=== PATIENT | female | born 1935 | race African-American/Black ===

== ENCOUNTER 2016-12-30 05:34 | Emergency (ER) | payer MEDICARE, OTHER ==
[~2016-12-30] VITALS: Ht 167.6 cm; Wt 59.0 kg
[2016-12-30] MEDS ORDERED: DIPHTH,PERTUSS(ACELL),TET TOX 0.5 ML DISP.SYRIN. VAX IM ONE (06:00)
--- NOTE | 2016-12-30 06:06 | PHYS DOC ---
Adult General Chief Complaint Chief Complaint: HEAD INJURY/TRAUMA HPI HPI Patient is a 81 year old female who presents with scalp laceration and a fall. She has a history dementia, coronary disease who according to family got up around 5 AM and was in the living room after she fell. This was an unwitnessed fall and the patient states she got up to use the bathroom but family is telling me that the bathrooms in the opposite direction. She lives with her daughter, who states last night she was talking to people her bedroom and was more hyper than normal. Present during the exam is certain daughter and son. The daughter states that she found her laying under a glass coffee table and with a laceration the back of her head. She is on a blood thinner. Patient currently states she has a headache but denies any neck pain chest pain abdominal pain. Family is unsure when her last tetanus shot was. Review of Systems Review of Systems Constitutional: Denies fever or chills [] Eyes: Denies change in visual acuity, redness, or eye pain [] HENT: Denies nasal congestion or sore throat [] Respiratory: Denies cough or shortness of breath [] Cardiovascular: No additional information not addressed in HPI [] GI: Denies abdominal pain, nausea, vomiting, bloody stools or diarrhea [] : Denies dysuria or hematuria [] Musculoskeletal: Denies back pain or joint pain [] Integument: Denies rash or skin lesions [] Neurologic: Denies focal weakness or sensory changes, positive for headache Endocrine: Denies polyuria or polydipsia [] Current Medications Current Medications Current Medications Medications (Trade) Dose Ordered Sig/Arnoldo Start Time Stop Time Status Last Admin Dose Admin Acetaminophen (Tylenol) 1,000 mg 1X ONCE 12/30/16 07:30 12/30/16 07:31 DC 12/30/16 07:46 1,000 MG Diphtheria/ Tetanus/Acell Pertussis (Boostrix) 0.5 ml ONCE ONCE 12/30/16 06:00 12/30/16 06:01 DC 12/30/16 06:10 0.5 ML Lidocaine HCl (Xylocaine-Mpf 1% Vial) 2 ml 1X ONCE 12/30/16 06:30 12/30/16 06:31 DC 12/30/16 06:33 2 ML Allergies Allergies Allergies Coded Allergies Type Severity Reaction Last Updated Verified No Known Drug Allergies 12/30/16 No Physical Exam Physical Exam Constitutional: Well developed, well nourished, no acute distress, non-toxic appearance. [] HENT: Normocephalic, atraumatic, bilateral external ears normal, oropharynx moist, no oral exudates, nose normal. [] Eyes: PERRLA, EOMI, conjunctiva normal, no discharge. [] Neck: Normal range of motion, no tenderness, supple, no stridor. [] Cardiovascular:Heart rate regular rhythm, no murmur [] Lungs & Thorax: Bilateral breath sounds clear to auscultation [] Abdomen: Bowel sounds normal, soft, no tenderness, no masses, no pulsatile masses. [] Skin: Warm, dry, no erythema, no rash. 3 cm laceration to posterior scalp Back: No tenderness, no CVA tenderness. [] Extremities: No tenderness, no cyanosis, no clubbing, ROM intact, no edema. [] Neurologic: Alert and interactive, normal motor function, normal sensory function, no focal deficits noted. [] Psychologic: Affect normal, judgement normal, mood normal. [] Current Patient Data Vital Signs Vital Signs Date Time Temp Pulse Resp B/P (MAP) Pulse Ox O2 Delivery O2 Flow Rate FiO2 12/30/16 06:36 73 197/91 (126) Room Air 12/30/16 06:16 96 12/30/16 05:40 98.2 18 98.2 Lab Values Laboratory Tests Test 12/30/16 04:40 12/30/16 06:26 White Blood Count 8.1 x10^3/uL (4.0-11.0) Red Blood Count 4.56 x10^6/uL (3.50-5.40) Hemoglobin 13.1 g/dL (12.0-15.5) Hematocrit 40.1 % (36.0-47.0) Mean Corpuscular Volume 88 fL (79-100) Mean Corpuscular Hemoglobin 29 pg (25-35) Mean Corpuscular Hemoglobin Concent 33 g/dL (31-37) Red Cell Distribution Width 14.1 % (11.5-14.5) Platelet Count 135 x10^3/uL (140-400) L Neutrophils (%) (Auto) 69 % (31-73) Lymphocytes (%) (Auto) 24 % (24-48) Monocytes (%) (Auto) 5 % (0-9) Eosinophils (%) (Auto) 1 % (0-3) Basophils (%) (Auto) 1 % (0-3) Neutrophils # (Auto) 5.6 x10^3uL (1.8-7.7) Lymphocytes # (Auto) 2.0 x10^3/uL (1.0-4.8) Monocytes # (Auto) 0.4 x10^3/uL (0.0-1.1) Eosinophils # (Auto) 0.1 x10^3/uL (0.0-0.7) Basophils # (Auto) 0.0 x10^3/uL (0.0-0.2) Prothrombin Time 17.0 SEC (11.7-14.0) H Prothrombin Time INR 1.5 (0.8-1.1) H PTT 35 SEC (24-38) Sodium Level 139 mmol/L (136-145) Potassium Level 3.7 mmol/L (3.5-5.1) Chloride Level 99 mmol/L (98-107) Carbon Dioxide Level 33 mmol/L (21-32) H Anion Gap 7 (6-14) Blood Urea Nitrogen 11 mg/dL (7-20) Creatinine 0.9 mg/dL (0.6-1.0) Estimated GFR (Cockcroft-Gault) 72.9 Glucose Level 126 mg/dL (70-99) H Calcium Level 10.1 mg/dL (8.5-10.1) Creatine Kinase 175 U/L (26-192) Creatine Kinase MB (Mass) 3.0 ng/mL (0.0-3.6) Creatine Kinase MB Relative Index 1.7 % (0-4) Troponin I Quantitative < 0.017 ng/mL (0.000-0.055) Urine Collection Type U cath Urine Color Yellow Urine Clarity Clear Urine pH 8.0 Urine Specific [place] 1.010 Urine Protein Negative mg/dL (NEG-TRACE) Urine Glucose (UA) Negative mg/dL (NEG) Urine Ketones (Stick) Negative mg/dL (NEG) Urine Blood Small (NEG) Urine Nitrite Negative (NEG) Urine Bilirubin Negative (NEG) Urine Urobilinogen Dipstick 0.2 mg/dL (0.2 mg/dL) Urine Leukocyte Esterase Small (NEG) Urine RBC 6-10 /HPF (0-2) Urine WBC Occ /HPF (0-4) Urine Squamous Epithelial Cells Few /LPF Urine Amorphous Sediment Present /HPF Urine Bacteria 0 /HPF (0-FEW) Urine Hyaline Casts Occasional /HPF Urine Mucus Slight /LPF Laboratory Tests 12/30/16 04:40 Laboratory Tests 12/30/16 04:40 EKG EKG EKG shows sinus rhythm [address] elevations or T-wave inversions, and left axis deviation noted, QTC 502 ms, as interpreted by me. Radiology/Procedures Radiology/Procedures [facility] [address] [place] [address] IMAGING REPORT Signed PATIENT: EFREN QUACH ACCOUNT: [id number] : 1935 LOCATION: ER AGE: 81 SEX: F EXAM STATUS: REG ER ORD. PHYSICIAN: RAAD COLEMAN MD REASON: fall, HEAD INJURY PROCEDURE: CT HEAD AND CERVICAL SPINE WO CT HEAD AND CERVICAL SPINE WITHOUT CONTRAST History: 81-year-old female status post fall with head injury. Comparison: None. Procedure: Axial images are obtained of the head from the skull base through the vertex without IV contrast. Noncontrast helical CT of the cervical spine was performed. Axial, sagittal, and coronal reconstructions were obtained. PQRS compliance statement: One or more of the following individualized dose reduction techniques were utilized for this examination: 1. Automated exposure control 2. Adjustment of the mA and/or kV according to patient size 3. Use of iterative reconstruction technique Head Findings: The ventricles and sulci are age-appropriate. No mass-effect, midline shift, hemorrhage or extra-axial fluid collection is identified. Bone windows demonstrate no significant calvarial abnormality. The visualized paranasal sinuses are clear. Mastoid air cells are well aerated. Cervical Spine Findings: There is no evidence of acute fracture or dislocation. Normal cervical lordosis and alignment is maintained. Vertebral body heights are maintained. Posterior elements are intact. Significant degenerative changes are present throughout. Visualized soft tissues of the neck demonstrate no acute finding, with arterial calcifications present bilaterally. The visualized lung apices are clear. IMPRESSION: 1. No acute intracranial abnormality. 2. No acute fracture of the cervical spine. Electronically signed by: Philipp Wilson MD (12/30/2016 6:11 AM) DICTATED and SIGNED BY: PHILIPP WILSON MD DATE: 12/30/16 0606 CC: FE GATES MD; LASHANDA PARKINSON MD; RAAD COLEMAN MD ~ Impressions: Closed head injury Scalp laceration Course & Med Decision Making Course & Med Decision Making Pertinent Labs and Imaging studies reviewed. (See chart for details) CT head and neck did not show any acute abnormality. Her labs EKG also nonacute. Scalp laceration closed with 6 bettye. Tetanus shot updated. She states her headache has just about resolved prior to Tylenol administration. She has a follow-up appointment today with her primary care physician. She's being discharged with her daughter, return precautions given for increasing confusion, fevers, signs of scalp wound infection, or other concerns. Dragon Disclaimer Dragon Disclaimer This electronic medical record was generated, in whole or in part, using a voice recognition dictation system. Laceration Repair Lac Repair Indication: 3 cm laceration posterior scalp Procedure: The patient was placed in the appropriate position and anesthesia with 1% lidocaine. The area was then cleaned with normal saline. The laceration was repaired with 6 bettye. Total repaired wound length: 3 cm. The patient tolerated the procedure well. Complications: No complications noted. Departure Departure Impression: Primary Impression: Closed head injury Additional Impression: Scalp laceration Disposition: 01 HOME, SELF-CARE Condition: STABLE Referrals: LASHANDA PARKINSON MD (PCP) Patient Instructions: Laceration Care, Adult Additional Instructions: The CAT scan of her head and neck did not show anything broken. Your laceration in her scalp was repaired with bettye and you'll need to have these removed in 7-9 days from now. Return to the ER if you have increasing pain, bleeding, confusion, signs of infection, or other concerns. Problem Qualifiers Primary Impression: Closed head injury Encounter type: initial encounter Qualified Codes: S09.90XA - Unspecified injury of head, initial encounter Additional Impression: Scalp laceration Encounter type: initial encounter Qualified Codes: S01.01XA - Laceration without foreign body of scalp, initial encounter FE GATES MD Dec 30, 2016 06:06
--- NOTE | 2016-12-30 06:15 | RAD ---
CT HEAD AND CERVICAL SPINE WITHOUT CONTRAST History: 81-year-old female status post fall with head injury. Comparison: None. Procedure: Axial images are obtained of the head from the skull base through the vertex without IV contrast. Noncontrast helical CT of the cervical spine was performed. Axial, sagittal, and coronal reconstructions were obtained. PQRS compliance statement: One or more of the following individualized dose reduction techniques were utilized for this examination: 1. Automated exposure control 2. Adjustment of the mA and/or kV according to patient size 3. Use of iterative reconstruction technique Head Findings: The ventricles and sulci are age-appropriate. No mass-effect, midline shift, hemorrhage or extra-axial fluid collection is identified. Bone windows demonstrate no significant calvarial abnormality. The visualized paranasal sinuses are clear. Mastoid air cells are well aerated. Cervical Spine Findings: There is no evidence of acute fracture or dislocation. Normal cervical lordosis and alignment is maintained. Vertebral body heights are maintained. Posterior elements are intact. Significant degenerative changes are present throughout. Visualized soft tissues of the neck demonstrate no acute finding, with arterial calcifications present bilaterally. The visualized lung apices are clear. IMPRESSION: 1. No acute intracranial abnormality. 2. No acute fracture of the cervical spine. Electronically signed by: Aure Wilson MD (12/30/2016 6:11 AM)
[2016-12-30 06:17] LABS: BASO % 1 % (0-3); EOS % 1 % (0-3); HEMATOCRIT 40.1 % (36.0-47.0); HEMOGLOBIN 13.1 g/dL (12.0-15.5); LYMPH % 24 % (24-48); MEAN CORPUSCULAR HEMOGLOBIN 29 pg (25-35); MEAN CORPUSCULAR HGB CONC 33 g/dL (31-37); MEAN CORPUSCULAR VOLUME 88 fL (79-100); MONO % 5 % (0-9); NEUT % 69 % (31-73); PLATELET COUNT 135 x10^3/uL (140-400); RED BLOOD COUNT 4.56 x10^6/uL (3.50-5.40); RED CELL DISTRIBUTION WIDTH 14.1 % (11.5-14.5); WHITE BLOOD COUNT 8.1 x10^3/uL (4.0-11.0)
[2016-12-30 06:27] LABS: POTASSIUM 3.7 mmol/L (3.5-5.1)
[2016-12-30] MEDS ORDERED: LIDOCAINE 1% PF 2 ML VIAL. ID ONE (06:30)
[2016-12-30 06:33] LABS: CALCIUM 10.1 mg/dL (8.5-10.1); CREATININE 0.9 mg/dL (0.6-1.0); GFR 72.9
[2016-12-30 06:47] LABS: BILIRUBIN,URINE NEGATIVE (NEG); GLUCOSE,URINE NEGATIVE (NEG); NITRITE,URINE NEGATIVE (NEG); PROTEIN,URINE NEGATIVE (NEG-TRACE); UROBILINOGEN,URINE 0.2 mg/dL (0.2 mg/dL)
--- NOTE | 2016-12-30 06:48 | EKG ---
[facility] [address] [place] [address] Test Date: 2016-12-30 Test Time: 06:23:21 Pat Name: EFREN QUACH Department: Room: Gender: F [employer]ity Assessor: : 1935 Requested By: FE GATES Order Number: [id number] Reading MD: Kim Mcgowan Measurements Intervals [place] Rate: 74 P: 56 [place]: 148 QRS: -5 QRSD: 88 T: 61 QT: 452 QTc: 502 Interpretive Statements SINUS RHYTHM LEFTWARD AXIS PROLONGED QT NO SPECIFIC ECG ABNORMALITIES Electronically Signed On 01-02-2017 20:58:40 CDT by Kim Mcgowan
[2016-12-30 07:08] LABS: INR 1.5 (0.8-1.1)
[2016-12-30 07:17] LABS: BACTERIA,URINE 0 /HPF (0-FEW); SQUAMOUS EPITHELIAL CELL,UR FEW /LPF; WBC,URINE OCC /HPF (0-4)
[2016-12-30] MEDS ORDERED: ACETAMINOPHEN 500 MG TABLET PO ONE (07:30)
[2016-12-30 07:50] VITALS: BP 179/99
== END 2016-12-30 08:05 | disposition home or self-care (01) ==
LOC: ER 05:34
DX: S01.01XA Laceration without foreign body of scalp, initial encounter (principal); F03.90 Unspecified dementia, unspecified severity, without behavioral disturbance, psychotic disturbance, mood disturbance, and anxiety; W18.39XA Other fall on same level, initial encounter; Y93.89 Activity, other specified; Y92.89 Other specified places as the place of occurrence of the external cause; Y99.8 Other external cause status
CPT/HCPCS: 12002; 36415; 51701; 70450; 72125; 80048; 81001; 82553; 84484; 85027; 85610; 85730; 87086; 90471; 90715; 93005; 99285-25

== ENCOUNTER 2017-01-10 14:12 | Inpatient (IN) | payer MEDICARE, OTHER ==
[~2017-01-10] VITALS: Ht 167.6 cm; Wt 58.1 kg
[2017-01-10] MEDS ORDERED: fentaNYL PF VIAL 100 MCG/2 ML VIAL IV PRN (15:00)
[2017-01-10] MEDS ORDERED: ONDANSETRON PF 4 MG/2 ML VIAL. IV PRN (15:00)
--- NOTE | 2017-01-10 15:15 | PHYS DOC ---
Past Medical History Past Medical History: Anxiety, Dementia, Depression, GERD, Hypertension, Stroke Past Surgical History: Hip Replacement, Hysterectomy Additional Past Surgical Histo: cardiac stents, back, Alcohol Use: None Drug Use: None Adult General Chief Complaint Chief Complaint: HYPERTENSION HPI HPI Patient is a 81 year old female presenting to the emergency Department for a suture removal but son says that she has been quite confused. She lives by herself and family sometimes stays with her. Patient is confused on the date and she took 1 minute to realize it was 2016. She says that she is having some headache chest pain as well. He is burning in the center of her chest and she is not sure how long this has been going on. Patient is supposed be on blood pressure medications but she does not know what her blood sugar medications are. Review of Systems Review of Systems Constitutional: Denies fever or chills [] Eyes: Denies change in visual acuity, redness, or eye pain [] HENT: Denies nasal congestion or sore throat [] Respiratory: Denies cough or shortness of breath [] Cardiovascular: + CP GI: Denies abdominal pain, nausea, vomiting, bloody stools or diarrhea [] : Denies dysuria or hematuria [] Musculoskeletal: Denies back pain or joint pain [] Integument: Denies rash or skin lesions [] Neurologic: + headache. No focal weakness or sensory changes [] Current Medications Current Medications Current Medications Medications (Trade) Dose Ordered Sig/Arnoldo Start Time Stop Time Status Last Admin Dose Admin Fentanyl Citrate (Fentanyl 2ml Vial) 50 mcg PRN Q2HR PRN 01/10/17 15:00 01/11/17 14:59 Nicardipine HCl 50 mg/Sodium Chloride 270 ml @ 0 mls/hr CONT PRN 01/10/17 15:00 01/10/17 15:09 25 MLS/HR Ondansetron HCl (Zofran) 4 mg PRN Q8HRS PRN 01/10/17 15:00 01/11/17 14:59 Allergies Allergies Allergies Coded Allergies Type Severity Reaction Last Updated Verified No Known Drug Allergies 12/30/16 No Physical Exam Physical Exam Constitutional: Well developed, well nourished, no acute distress, non-toxic appearance. [] HENT: Normocephalic, atraumatic, bilateral external ears normal, oropharynx moist, no oral exudates, nose normal. [] Eyes: PERRLA, EOMI, conjunctiva normal, no discharge. [] Neck: Normal range of motion, no tenderness, supple, no stridor. [] Cardiovascular:Heart rate regular rhythm, no murmur [] Lungs & Thorax: Bilateral breath sounds clear to auscultation [] Abdomen: Bowel sounds normal, soft, no tenderness, no masses, no pulsatile masses. [] Skin: Warm, dry, no erythema, no rash. [] Back: No tenderness, no CVA tenderness. [] Extremities: No tenderness, no cyanosis, no clubbing, ROM intact, no edema. [] Neurologic: Alert and oriented X 2, normal motor function, normal sensory function, no focal deficits noted. [] Current Patient Data Vital Signs Vital Signs Date Time Temp Pulse Resp B/P (MAP) Pulse Ox O2 Delivery O2 Flow Rate FiO2 01/10/17 14:40 98.4 78 18 238/118 (158) 95 Room Air 98.4 EKG EKG Sinus rhythm at 76 beats per minutes with normal axis no obvious ST elevation or depression and normal T waves. Radiology/Procedures Radiology/Procedures [] Course & Med Decision Making Course & Med Decision Making Given her profound hypertension and her complaints will go ahead and admit for further observation and treatment. Patient started on a nicardipine drip. Dragon Disclaimer Dragon Disclaimer This electronic medical record was generated, in whole or in part, using a voice recognition dictation system. Departure Departure Impression: Primary Impression: Hypertensive encephalopathy Disposition: ADMITTED INPATIENT Admitting Physician: Paty Garvin Condition: STABLE Referrals: LASHANDA PARKINSON MD (PCP) BRIAN ROTH DO Jan 10, 2017 15:15
--- NOTE | 2017-01-10 15:22 | RAD ---
CT HEAD WO CONTRAST dated 01/10/2017 2:53 PM Indication: Confusion, weakness history of dementia, hypertension Comparison: 12/30/2016 Technique: Contiguous axial imaging the head was performed from skull base to vertex. One or more of the following individualized dose reduction techniques were utilized for this examination: 1. Automated exposure control 2. Adjustment of the mA and/or kV according to patient size 3. Use of iterative reconstruction technique Findings: Ventricles and sulci are mildly prominent for age. No midline shift or mass effect. Mild patchy low density in the deep/subcortical periventricular white matter, unchanged. No hemorrhage or extra axial collection. Posterior fossa and brainstem unremarkable Visualized paranasal sinuses mastoid air cells are clear. No acute calvarial abnormality. IMPRESSION: 1. No evidence of acute intracranial hemorrhage or mass. 2. Mild chronic small vessel ischemic changes and atrophy, stable. Electronically signed by: Garo Davidson MD (01/10/2017 3:19 PM) [facility] [place]
[2017-01-10 15:23] LABS: BASO % 0 % (0-3); EOS % 1 % (0-3); HEMATOCRIT 37.2 % (36.0-47.0); HEMOGLOBIN 12.3 g/dL (12.0-15.5); LYMPH # 1.7 x10^3/uL (1.0-4.8); LYMPH % 20 % (24-48); MEAN CORPUSCULAR HEMOGLOBIN 30 pg (25-35); MEAN CORPUSCULAR HGB CONC 33 g/dL (31-37); MEAN CORPUSCULAR VOLUME 89 fL (79-100); MONO % 6 % (0-9); NEUT % 73 % (31-73); PLATELET COUNT 167 x10^3/uL (140-400); RED BLOOD COUNT 4.16 x10^6/uL (3.50-5.40); RED CELL DISTRIBUTION WIDTH 14.4 % (11.5-14.5); WHITE BLOOD COUNT 8.6 x10^3/uL (4.0-11.0)
[2017-01-10 15:28] LABS: CREATININE 0.8 mg/dL (0.6-1.0); GFR 83.5; POTASSIUM 3.7 mmol/L (3.5-5.1)
[2017-01-10 15:32] LABS: INR 1.5 (0.8-1.1); PROTHROMBIN TIME PATIENT 17.4 SEC (11.7-14.0)
[2017-01-10 15:33] LABS: ALBUMIN 4.1 g/dL (3.4-5.0); ALBUMIN/GLOBULIN RATIO 1.1 (1.0-1.7); MAGNESIUM 1.8 mg/dL (1.8-2.4); TOTAL BILIRUBIN 0.4 mg/dL (0.2-1.0); TOTAL PROTEIN 7.8 g/dL (6.4-8.2)
[2017-01-10 16:00] VITALS: BP 165/74
[2017-01-10 16:23] LABS: BILIRUBIN,URINE NEGATIVE (NEG); GLUCOSE,URINE NEGATIVE (NEG); NITRITE,URINE NEGATIVE (NEG); PROTEIN,URINE NEGATIVE (NEG-TRACE); UROBILINOGEN,URINE 0.2 mg/dL (0.2 mg/dL)
[2017-01-10 16:58] LABS: BACTERIA,URINE 0 /HPF (0-FEW); WBC,URINE 0 /HPF (0-4)
[2017-01-10 16:59] LABS: SQUAMOUS EPITHELIAL CELL,UR FEW /LPF
[2017-01-10] MEDS ORDERED: NITR0.4T22 SL (17:25)
[2017-01-10] MEDS ORDERED: FLUT9.9S NS (17:25)
[2017-01-10] MEDS ORDERED: AMLO2.5T PO (17:25)
[2017-01-10] MEDS ORDERED: LISI-334 PO (17:25)
[2017-01-10] MEDS ORDERED: ALPR0.5T6 PO (17:25)
[2017-01-10] MEDS ORDERED: SUCR1ORA11 PO (17:25)
[2017-01-10] MEDS ORDERED: MEMA10TA PO (17:25)
[2017-01-10] MEDS ORDERED: METO100T5 PO (17:25)
[2017-01-10] MEDS ORDERED: RANI150C PO (17:25)
[2017-01-10] MEDS ORDERED: WARF2.5T71 PO (17:25)
[2017-01-10] MEDS ORDERED: OMEP40CA5 PO (17:25)
[2017-01-10] MEDS ORDERED: NITROGLYCERIN SUBLINGUAL 0.4 MG BOTTLE OF 25. SL PRN (18:15)
[2017-01-10] MEDS ORDERED: LISINOPRIL 20 MG TABLET PO ONE (18:30)
[2017-01-10] MEDS: WARFARIN 2.5 MG TABLET. PO SCH (18:32)
[2017-01-10 19:40] VITALS: BP 133/75
--- NOTE | 2017-01-10 20:28 | PDOC1 ---
History and Physical Date of Admission Date of Admission DATE: 01/10/17 TIME: 20:25 History of Present Illness History of Present Illness HPI Patient is a 81 year old female presenting to the emergency Department for a suture removal but son says that she has been quite confused. She lives by herself and family sometimes stays with her. Patient is confused on the date and she took 1 minute to realize it was 2017. She says that she is having some headache chest pain as well. He is burning in the center of her chest and she is not sure how long this has been going on. Patient is supposed be on blood pressure medications but she does not know what her blood sugar medications are. Past Medical History: Anxiety, Dementia, Depression, GERD, Hypertension, Stroke Past Surgical History: Hip Replacement, Hysterectomy Additional Past Surgical Histo: cardiac stents, back, Alcohol Use: None Drug Use:none Plan Admit antihypertensives Consult Neuro Cardiac monitoring Labs PTOT SS ?LTC? dictation still broken Total time 34 minutes Current Problem List Problem List Problems Medical Problems: (1) Hypertensive encephalopathy Status: Acute Problems: Current Medications Current Medications Current Medications Nicardipine HCl 50 mg/Sodium Chloride 270 ml @ 0 mls/hr CONT PRN IV SEE I/O RECORD Last administered on 01/10/17t 15:09; Start 01/10/17 at 15:00 Ondansetron HCl (Zofran) 4 mg PRN Q8HRS PRN IV NAUSEA/VOMITING; Start 01/10/17 at 15:00; Stop 01/11/17 at 14:59 Fentanyl Citrate (Fentanyl 2ml Vial) 50 mcg PRN Q2HR PRN IV PAIN; Start at 15:00; Stop 01/11/17 at 14:59 Alprazolam (Xanax) 0.5 mg BID PO ; Start 01/10/17 at 21:00 Amlodipine Besylate (Norvasc) 2.5 mg BID PO ; Start 01/10/17 at 21:00 Lisinopril (Prinivil) 20 mg DAILYWSUP PO ; Start 01/11/17 at 17:00 Memantine (Namenda) 10 mg BID PO ; Start 01/10/17 at 21:00 Metoprolol Succinate (Toprol Xl) 100 mg DAILY PO ; Start 01/11/17 at 09:00 Nitroglycerin (Nitrostat) 0.4 mg PRN Q5MIN PRN SL CHEST PAIN; Start 01/10/17 at 18:15 Sucralfate (Carafate) 1 gm TIDWMEALHC PO ; Start 01/10/17 at 21:00 Warfarin Sodium (Coumadin) 2.5 mg DAILY16 PO Last administered on 01/10/17 18: 32; Start 01/10/17 at 18:30 Fluticasone Propionate (Flonase) 2 spray DAILY NS ; Start 01/11/17 at 09:00 Pantoprazole Sodium (Protonix) 40 mg DAILYAC PO ; Start 01/11/17 at 07:30 Famotidine (Pepcid) 20 mg QHS PO ; Start 01/10/17 at 21:00 Lisinopril (Prinivil) 20 mg 1X ONCE PO Last administered on 01/10/17 18:29; Start 01/10/17 at 18:30; Stop 01/10/17 at 18:31; Status DC Warfarin Sodium (Coumadin Per Physician) 1 each PRN DAILY PRN MC SEE COMMENTS; Start 01/10/17 at 18:30 Active Scripts Active Reported Ranitidine Hcl 150 Mg Capsule 150 Mg PO DAILY Amlodipine Besylate 2.5 Mg Tablet 2.5 Mg PO BID Namenda (Memantine Hcl) 10 Mg Tablet 1 Tab PO BID Flonase Allergy Relief (Fluticasone Propionate) 9.9 Ml [place].susp 2 Sprays NS DAILY NITROGLYCERIN SubLingual (Nitroglycerin) 0.4 Mg Tab.subl 0.4 Mg SL PRN Q5MIN PRN Warfarin Sodium 2.5 Mg Tablet 2.5 Mg PO DAILY Alternate 1-2 tablets every other day Omeprazole 40 Mg Capsule.dr 1 Cap PO DAILY Lisinopril 20 Mg Tablet 20 Mg PO DAILYWSUP Alprazolam 0.5 Mg Tablet 1 Tab PO BID Sucralfate 1 Gm/10 Ml Oral.susp 1 Gm PO TIDWMEALHC Toprol Xl (Metoprolol Succinate) 100 Mg Tab.er.24h 1 Tab PO DAILY Allergies Allergies: Coded Allergies: No Known Drug Allergies (Unverified , 12/30/16) Vitals Vitals Vital Signs Date Time Temp Pulse Resp B/P (MAP) Pulse Ox O2 Delivery O2 Flow Rate FiO2 01/10/17 19:40 97.9 80 17 133/75 (94) 97 Room Air 97.9 Labs Labs Laboratory Tests Test 01/10/17 15:10 01/10/17 15:50 White Blood Count 8.6 x10^3/uL (4.0-11.0) Red Blood Count 4.16 x10^6/uL (3.50-5.40) Hemoglobin 12.3 g/dL (12.0-15.5) Hematocrit 37.2 % (36.0-47.0) Mean Corpuscular Volume 89 fL (79-100) Mean Corpuscular Hemoglobin 30 pg (25-35) Mean Corpuscular Hemoglobin Concent 33 g/dL (31-37) Red Cell Distribution Width 14.4 % (11.5-14.5) Platelet Count 167 x10^3/uL (140-400) Neutrophils (%) (Auto) 73 % (31-73) Lymphocytes (%) (Auto) 20 % (24-48) Monocytes (%) (Auto) 6 % (0-9) Eosinophils (%) (Auto) 1 % (0-3) Basophils (%) (Auto) 0 % (0-3) Neutrophils # (Auto) 6.3 x10^3uL (1.8-7.7) Lymphocytes # (Auto) 1.7 x10^3/uL (1.0-4.8) Monocytes # (Auto) 0.5 x10^3/uL (0.0-1.1) Eosinophils # (Auto) 0.0 x10^3/uL (0.0-0.7) Basophils # (Auto) 0.0 x10^3/uL (0.0-0.2) Prothrombin Time 17.4 SEC (11.7-14.0) Prothromb Time International Ratio 1.5 (0.8-1.1) Activated Partial Thromboplast Time 32 SEC (24-38) Sodium Level 136 mmol/L (136-145) Potassium Level 3.7 mmol/L (3.5-5.1) Chloride Level 98 mmol/L (98-107) Carbon Dioxide Level 31 mmol/L (21-32) Anion Gap 7 (6-14) Blood Urea Nitrogen 13 mg/dL (7-20) Creatinine 0.8 mg/dL (0.6-1.0) Estimated GFR (Cockcroft-Gault) 83.5 BUN/Creatinine Ratio 16 (6-20) Glucose Level 105 mg/dL (70-99) Calcium Level 10.0 mg/dL (8.5-10.1) Magnesium Level 1.8 mg/dL (1.8-2.4) Total Bilirubin 0.4 mg/dL (0.2-1.0) Aspartate Amino Transf (AST/SGOT) 23 U/L (15-37) Alanine Aminotransferase (ALT/SGPT) 19 U/L (14-59) Alkaline Phosphatase 147 U/L (46-116) Creatine Kinase 57 U/L (26-192) Troponin I Quantitative < 0.017 ng/mL (0.000-0.055) OE-Gim-I-Type Natriuretic Peptide 212 pg/mL (0-449) Total Protein 7.8 g/dL (6.4-8.2) Albumin 4.1 g/dL (3.4-5.0) Albumin/Globulin Ratio 1.1 (1.0-1.7) Lipase 297 U/L (73-393) Thyroid Stimulating Hormone (TSH) 1.840 uIU/mL (0.358-3.74) Urine Collection Type Unknown Urine Color Yellow Urine Clarity Clear Urine pH 8.0 Urine Specific [place] 1.010 Urine Protein Negative mg/dL (NEG-TRACE) Urine Glucose (UA) Negative mg/dL (NEG) Urine Ketones (Stick) Negative mg/dL (NEG) Urine Blood Trace (NEG) Urine Nitrite Negative (NEG) Urine Bilirubin Negative (NEG) Urine Urobilinogen Dipstick 0.2 mg/dL (0.2 mg/dL) Urine Leukocyte Esterase Negative (NEG) Urine RBC 3-5 /HPF (0-2) Urine WBC 0 /HPF (0-4) Urine Squamous Epithelial Cells Few /LPF Urine Bacteria 0 /HPF (0-FEW) Urine Hyaline Casts Occasional /HPF Urine Mucus Mod /LPF Laboratory Tests Test 01/10/17 15:10 01/10/17 15:50 White Blood Count 8.6 x10^3/uL (4.0-11.0) Red Blood Count 4.16 x10^6/uL (3.50-5.40) Hemoglobin 12.3 g/dL (12.0-15.5) Hematocrit 37.2 % (36.0-47.0) Mean Corpuscular Volume 89 fL (79-100) Mean Corpuscular Hemoglobin 30 pg (25-35) Mean Corpuscular Hemoglobin Concent 33 g/dL (31-37) Red Cell Distribution Width 14.4 % (11.5-14.5) Platelet Count 167 x10^3/uL (140-400) Neutrophils (%) (Auto) 73 % (31-73) Lymphocytes (%) (Auto) 20 % (24-48) Monocytes (%) (Auto) 6 % (0-9) Eosinophils (%) (Auto) 1 % (0-3) Basophils (%) (Auto) 0 % (0-3) Neutrophils # (Auto) 6.3 x10^3uL (1.8-7.7) Lymphocytes # (Auto) 1.7 x10^3/uL (1.0-4.8) Monocytes # (Auto) 0.5 x10^3/uL (0.0-1.1) Eosinophils # (Auto) 0.0 x10^3/uL (0.0-0.7) Basophils # (Auto) 0.0 x10^3/uL (0.0-0.2) Prothrombin Time 17.4 SEC (11.7-14.0) Prothromb Time International Ratio 1.5 (0.8-1.1) Activated Partial Thromboplast Time 32 SEC (24-38) Sodium Level 136 mmol/L (136-145) Potassium Level 3.7 mmol/L (3.5-5.1) Chloride Level 98 mmol/L (98-107) Carbon Dioxide Level 31 mmol/L (21-32) Anion Gap 7 (6-14) Blood Urea Nitrogen 13 mg/dL (7-20) Creatinine 0.8 mg/dL (0.6-1.0) Estimated GFR (Cockcroft-Gault) 83.5 BUN/Creatinine Ratio 16 (6-20) Glucose Level 105 mg/dL (70-99) Calcium Level 10.0 mg/dL (8.5-10.1) Magnesium Level 1.8 mg/dL (1.8-2.4) Total Bilirubin 0.4 mg/dL (0.2-1.0) Aspartate Amino Transf (AST/SGOT) 23 U/L (15-37) Alanine Aminotransferase (ALT/SGPT) 19 U/L (14-59) Alkaline Phosphatase 147 U/L (46-116) Creatine Kinase 57 U/L (26-192) Troponin I Quantitative < 0.017 ng/mL (0.000-0.055) VP-Eod-N-Type Natriuretic Peptide 212 pg/mL (0-449) Total Protein 7.8 g/dL (6.4-8.2) Albumin 4.1 g/dL (3.4-5.0) Albumin/Globulin Ratio 1.1 (1.0-1.7) Lipase 297 U/L (73-393) Thyroid Stimulating Hormone (TSH) 1.840 uIU/mL (0.358-3.74) Urine Collection Type Unknown Urine Color Yellow Urine Clarity Clear Urine pH 8.0 Urine Specific [place] 1.010 Urine Protein Negative mg/dL (NEG-TRACE) Urine Glucose (UA) Negative mg/dL (NEG) Urine Ketones (Stick) Negative mg/dL (NEG) Urine Blood Trace (NEG) Urine Nitrite Negative (NEG) Urine Bilirubin Negative (NEG) Urine Urobilinogen Dipstick 0.2 mg/dL (0.2 mg/dL) Urine Leukocyte Esterase Negative (NEG) Urine RBC 3-5 /HPF (0-2) Urine WBC 0 /HPF (0-4) Urine Squamous Epithelial Cells Few /LPF Urine Bacteria 0 /HPF (0-FEW) Urine Hyaline Casts Occasional /HPF Urine Mucus Mod /LPF VTE Prophylaxis Ordered VTE Prophylaxis Devices: Yes VTE Pharmacological Prophylaxi: Yes WILLIAM CHRISTIAN III DO Jan 10, 2017 20:27
[2017-01-10] MEDS: SUCRALFATE 1 GM/10 ML ORAL.SUSP. PO SCH (20:46)
[2017-01-10] MEDS: MEMANTINE 10 MG TABLET. PO SCH (20:47)
[2017-01-10] MEDS: FAMOTIDINE 20 MG TABLET. PO SCH (20:47)
[2017-01-10] MEDS: ALPRAZolam 0.5 MG TABLET PO SCH (20:47)
[2017-01-10] MEDS: amLODIPine BESYLATE 2.5 MG TABLET PO SCH (20:50)
[2017-01-10 23:34] VITALS: BP 119/73
[2017-01-11 03:40] VITALS: BP 171/85
[2017-01-11 03:58] LABS: BASO % 0 % (0-3); EOS % 2 % (0-3); HEMATOCRIT 35.1 % (36.0-47.0); HEMOGLOBIN 11.6 g/dL (12.0-15.5); LYMPH # 2.3 x10^3/uL (1.0-4.8); LYMPH % 31 % (24-48); MEAN CORPUSCULAR HEMOGLOBIN 30 pg (25-35); MEAN CORPUSCULAR HGB CONC 33 g/dL (31-37); MEAN CORPUSCULAR VOLUME 89 fL (79-100); MONO % 8 % (0-9); NEUT % 59 % (31-73); PLATELET COUNT 160 x10^3/uL (140-400); RED BLOOD COUNT 3.93 x10^6/uL (3.50-5.40); RED CELL DISTRIBUTION WIDTH 14.8 % (11.5-14.5); WHITE BLOOD COUNT 7.3 x10^3/uL (4.0-11.0)
[2017-01-11] MEDS: CALCIUM CARBONATE 500 MG TAB.CHEW PO PRN ×2 (04:06→22:50)
[2017-01-11 05:32] LABS: CALCIUM 8.6 mg/dL (8.5-10.1); CREATININE 0.8 mg/dL (0.6-1.0); GFR 83.5; POTASSIUM 3.7 mmol/L (3.5-5.1)
[2017-01-11 07:00] VITALS: BP 151/88
--- NOTE | 2017-01-11 07:29 | PDOC2 ---
CARDIOLOGY CONSULT NOTE CHEIF COMPLAINT: High bp Problems: HPI: 81 y.o woman with multiple medical problems presenting with hypertensive emergency. Noted to have SBP > 200. Found to be mildly confused and therefore admitted for further evaluation. She has been unclear in her medication regimen and has had difficulty with self care. Denies any chest pain currently. No dyspnea, orthopnea, pnd or lower ext edema. No syncope or palpitations. PMHX: CVA HTN Prior cAD SOCHX: No alcohol, tob or illicits. FAMHX: Non-contributory CURRENT MEDS: amlodipine, lisinopril, metoprol, coumadin ALLERGIES: Allergies Coded Allergies Type Severity Reaction Last Updated Verified No Known Drug Allergies 12/30/16 No ROS: Negative for 04/18 systems reviewed unless otherwise noted above in HPI. PHYSICAL EXAM: Vital Signs: Vital Signs Date Time Temp Pulse Resp B/P (MAP) Pulse Ox O2 Delivery O2 Flow Rate FiO2 01/11/17 07:00 97.6 61 18 151/88 (109) Room Air 98.0 97.6 01/11/17 03:40 100 I & O even since admission Physical Exam: GEN.: No apparent distress. Alert and oriented. HEENT: Head is normocephalic, atraumatic NECK: Supple. LUNGS: Clear to auscultation. HEART: RRR, S1, S2 present. Peripheral pulses intact ABDOMEN: Soft, nontender. Positive bowel sounds. EXTREMITIES: Without any cyanosis. NEUROLOGIC: Normal speech, normal tone PSYCHIATRIC: Normal affect, normal mood. SKIN: No ulcerations DIAGNOSTIC TESTING: EKG - unremarkable Lab CE negative ASSESSMENT: 1. Hypertensive urgency 2. Prior CVA 3. Prior CAD PLAN: 1. BP better controlled. Continue present meds. 2. Outpt follow up in 2 weeks for BP check. Thanks for consult. Ok to KORI FERRER MD Jan 11, 2017 07:29
[2017-01-11] MEDS: PANTOPRAZOLE 40 MG TABLET.DR. PO SCH (08:04)
[2017-01-11] MEDS: SUCRALFATE 1 GM/10 ML ORAL.SUSP. PO SCH ×4 (08:04→19:44)
[2017-01-11] MEDS: MEMANTINE 10 MG TABLET. PO SCH ×2 (08:05→21:35)
[2017-01-11] MEDS: ALPRAZolam 0.5 MG TABLET PO SCH ×2 (08:05→21:35)
[2017-01-11] MEDS: METOPROLOL SUCC 24HR ER 100 MG TAB.ER.24H. PO SCH (08:06)
[2017-01-11] MEDS: amLODIPine BESYLATE 2.5 MG TABLET PO SCH ×2 (08:06→21:35)
[2017-01-11] MEDS: FLUTICASONE 50MCG/NASAL SPRAY 16GM BOTTLE. NS SCH (08:07)
--- NOTE | 2017-01-11 09:20 | RAD ---
Examination: Single frontal view the chest. History: History of confusion, hypertension Comparison: 03/07/2010 Findings: The cardiomediastinal silhouette grossly appears unremarkable. There is no acute infiltrate or visualize pneumothorax. Impression: No acute cardiopulmonary findings.
[2017-01-11 11:00] VITALS: BP 184/88
--- NOTE | 2017-01-11 12:16 | EKG ---
[facility] [address] [place] [address] Test Date: 2017-01-10 Test Time: 14:43:36 Pat Name: EFREN QUACH Department: Room: Gender: F Sba Underwriter: : 1935 Requested By: BRIAN ROTH Order Number: [id number] Reading MD: Measurements Intervals [place] Rate: 76 P: -42 MS: 130 QRS: 1 QRSD: 86 T: 35 QT: 408 QTc: 464 Interpretive Statements SINUS RHYTHM RI6.01 Unconfirmed report No previous ECG available for comparison
--- NOTE | 2017-01-11 13:04 | PDOC ---
PROGRESS NOTES Chief Complaint Chief Complaint MS change HTN emergency Social issues? Noncompliance History of Present Illness History of Present Illness Pt is about the same clinically, but bp is improved a lot. Seen and examined DW RN Vitals Vitals Vital Signs Date Time Temp Pulse Resp B/P (MAP) Pulse Ox O2 Delivery O2 Flow Rate FiO2 01/11/17 11:00 97.9 64 20 184/88 (120) 98 Room Air 97.9 01/11/17 07:00 98.0 Physical Exam General: Cooperative, Other (Pleasant but weak and a little confused) Heart: Regular rate, Normal S1 Lungs: Clear Abdomen: Normal bowel sounds, Soft Extremities: No clubbing, No cyanosis Skin: No rashes, No breakdown Labs LABS Laboratory Tests Test 01/10/17 15:10 01/10/17 15:50 01/10/17 20:40 01/11/17 03:05 White Blood Count 8.6 x10^3/uL (4.0-11.0) 7.3 x10^3/uL (4.0-11.0) Red Blood Count 4.16 x10^6/uL (3.50-5.40) 3.93 x10^6/uL (3.50-5.40) Hemoglobin 12.3 g/dL (12.0-15.5) 11.6 g/dL (12.0-15.5) Hematocrit 37.2 % (36.0-47.0) 35.1 % (36.0-47.0) Mean Corpuscular Volume 89 fL (79-100) 89 fL (79-100) Mean Corpuscular Hemoglobin 30 pg (25-35) 30 pg (25-35) Mean Corpuscular Hemoglobin Concent 33 g/dL (31-37) 33 g/dL (31-37) Red Cell Distribution Width 14.4 % (11.5-14.5) 14.8 % (11.5-14.5) Platelet Count 167 x10^3/uL (140-400) 160 x10^3/uL (140-400) Neutrophils (%) (Auto) 73 % (31-73) 59 % (31-73) Lymphocytes (%) (Auto) 20 % (24-48) 31 % (24-48) Monocytes (%) (Auto) 6 % (0-9) 8 % (0-9) Eosinophils (%) (Auto) 1 % (0-3) 2 % (0-3) Basophils (%) (Auto) 0 % (0-3) 0 % (0-3) Neutrophils # (Auto) 6.3 x10^3uL (1.8-7.7) 4.3 x10^3uL (1.8-7.7) Lymphocytes # (Auto) 1.7 x10^3/uL (1.0-4.8) 2.3 x10^3/uL (1.0-4.8) Monocytes # (Auto) 0.5 x10^3/uL (0.0-1.1) 0.6 x10^3/uL (0.0-1.1) Eosinophils # (Auto) 0.0 x10^3/uL (0.0-0.7) 0.1 x10^3/uL (0.0-0.7) Basophils # (Auto) 0.0 x10^3/uL (0.0-0.2) 0.0 x10^3/uL (0.0-0.2) Prothrombin Time 17.4 SEC (11.7-14.0) Prothromb Time International Ratio 1.5 (0.8-1.1) Activated Partial Thromboplast Time 32 SEC (24-38) Sodium Level 136 mmol/L (136-145) 140 mmol/L (136-145) Potassium Level 3.7 mmol/L (3.5-5.1) 3.7 mmol/L (3.5-5.1) Chloride Level 98 mmol/L (98-107) 102 mmol/L (98-107) Carbon Dioxide Level 31 mmol/L (21-32) 30 mmol/L (21-32) Anion Gap 7 (6-14) 8 (6-14) Blood Urea Nitrogen 13 mg/dL (7-20) 16 mg/dL (7-20) Creatinine 0.8 mg/dL (0.6-1.0) 0.8 mg/dL (0.6-1.0) Estimated GFR (Cockcroft-Gault) 83.5 83.5 BUN/Creatinine Ratio 16 (6-20) Glucose Level 105 mg/dL (70-99) 89 mg/dL (70-99) Calcium Level 10.0 mg/dL (8.5-10.1) 8.6 mg/dL (8.5-10.1) Magnesium Level 1.8 mg/dL (1.8-2.4) Total Bilirubin 0.4 mg/dL (0.2-1.0) Aspartate Amino Transf (AST/SGOT) 23 U/L (15-37) Alanine Aminotransferase (ALT/SGPT) 19 U/L (14-59) Alkaline Phosphatase 147 U/L (46-116) Creatine Kinase 57 U/L (26-192) Troponin I Quantitative < 0.017 ng/mL (0.000-0.055) < 0.017 ng/mL (0.000-0.055) < 0.017 ng/mL (0.000-0.055) PW-Vhp-J-Type Natriuretic Peptide 212 pg/mL (0-449) Total Protein 7.8 g/dL (6.4-8.2) Albumin 4.1 g/dL (3.4-5.0) Albumin/Globulin Ratio 1.1 (1.0-1.7) Lipase 297 U/L (73-393) Thyroid Stimulating Hormone (TSH) 1.840 uIU/mL (0.358-3.74) Urine Collection Type Unknown Urine Color Yellow Urine Clarity Clear Urine pH 8.0 Urine Specific [place] 1.010 Urine Protein Negative mg/dL (NEG-TRACE) Urine Glucose (UA) Negative mg/dL (NEG) Urine Ketones (Stick) Negative mg/dL (NEG) Urine Blood Trace (NEG) Urine Nitrite Negative (NEG) Urine Bilirubin Negative (NEG) Urine Urobilinogen Dipstick 0.2 mg/dL (0.2 mg/dL) Urine Leukocyte Esterase Negative (NEG) Urine RBC 3-5 /HPF (0-2) Urine WBC 0 /HPF (0-4) Urine Squamous Epithelial Cells Few /LPF Urine Bacteria 0 /HPF (0-FEW) Urine Hyaline Casts Occasional /HPF Urine Mucus Mod /LPF Review of Systems Review of Systems co weakness co hunger Assessment and Plan Assessmemt and Plan Problems Medical Problems: (1) Hypertensive encephalopathy Status: Acute Plan Consult neuro Consult Cards PTOT Home meds plus additional BP meds SS for LTC? Problems: Comment Review of Relevant I have reviewed the following items thor (where applicable) has been applied. Labs Laboratory Tests Test 01/10/17 15:10 01/10/17 15:50 01/10/17 20:40 01/11/17 03:05 White Blood Count 8.6 x10^3/uL (4.0-11.0) 7.3 x10^3/uL (4.0-11.0) Red Blood Count 4.16 x10^6/uL (3.50-5.40) 3.93 x10^6/uL (3.50-5.40) Hemoglobin 12.3 g/dL (12.0-15.5) 11.6 g/dL (12.0-15.5) Hematocrit 37.2 % (36.0-47.0) 35.1 % (36.0-47.0) Mean Corpuscular Volume 89 fL (79-100) 89 fL (79-100) Mean Corpuscular Hemoglobin 30 pg (25-35) 30 pg (25-35) Mean Corpuscular Hemoglobin Concent 33 g/dL (31-37) 33 g/dL (31-37) Red Cell Distribution Width 14.4 % (11.5-14.5) 14.8 % (11.5-14.5) Platelet Count 167 x10^3/uL (140-400) 160 x10^3/uL (140-400) Neutrophils (%) (Auto) 73 % (31-73) 59 % (31-73) Lymphocytes (%) (Auto) 20 % (24-48) 31 % (24-48) Monocytes (%) (Auto) 6 % (0-9) 8 % (0-9) Eosinophils (%) (Auto) 1 % (0-3) 2 % (0-3) Basophils (%) (Auto) 0 % (0-3) 0 % (0-3) Neutrophils # (Auto) 6.3 x10^3uL (1.8-7.7) 4.3 x10^3uL (1.8-7.7) Lymphocytes # (Auto) 1.7 x10^3/uL (1.0-4.8) 2.3 x10^3/uL (1.0-4.8) Monocytes # (Auto) 0.5 x10^3/uL (0.0-1.1) 0.6 x10^3/uL (0.0-1.1) Eosinophils # (Auto) 0.0 x10^3/uL (0.0-0.7) 0.1 x10^3/uL (0.0-0.7) Basophils # (Auto) 0.0 x10^3/uL (0.0-0.2) 0.0 x10^3/uL (0.0-0.2) Prothrombin Time 17.4 SEC (11.7-14.0) Prothromb Time International Ratio 1.5 (0.8-1.1) Activated Partial Thromboplast Time 32 SEC (24-38) Sodium Level 136 mmol/L (136-145) 140 mmol/L (136-145) Potassium Level 3.7 mmol/L (3.5-5.1) 3.7 mmol/L (3.5-5.1) Chloride Level 98 mmol/L (98-107) 102 mmol/L (98-107) Carbon Dioxide Level 31 mmol/L (21-32) 30 mmol/L (21-32) Anion Gap 7 (6-14) 8 (6-14) Blood Urea Nitrogen 13 mg/dL (7-20) 16 mg/dL (7-20) Creatinine 0.8 mg/dL (0.6-1.0) 0.8 mg/dL (0.6-1.0) Estimated GFR (Cockcroft-Gault) 83.5 83.5 BUN/Creatinine Ratio 16 (6-20) Glucose Level 105 mg/dL (70-99) 89 mg/dL (70-99) Calcium Level 10.0 mg/dL (8.5-10.1) 8.6 mg/dL (8.5-10.1) Magnesium Level 1.8 mg/dL (1.8-2.4) Total Bilirubin 0.4 mg/dL (0.2-1.0) Aspartate Amino Transf (AST/SGOT) 23 U/L (15-37) Alanine Aminotransferase (ALT/SGPT) 19 U/L (14-59) Alkaline Phosphatase 147 U/L (46-116) Creatine Kinase 57 U/L (26-192) Troponin I Quantitative < 0.017 ng/mL (0.000-0.055) < 0.017 ng/mL (0.000-0.055) < 0.017 ng/mL (0.000-0.055) TB-Ukf-O-Type Natriuretic Peptide 212 pg/mL (0-449) Total Protein 7.8 g/dL (6.4-8.2) Albumin 4.1 g/dL (3.4-5.0) Albumin/Globulin Ratio 1.1 (1.0-1.7) Lipase 297 U/L (73-393) Thyroid Stimulating Hormone (TSH) 1.840 uIU/mL (0.358-3.74) Urine Collection Type Unknown Urine Color Yellow Urine Clarity Clear Urine pH 8.0 Urine Specific [place] 1.010 Urine Protein Negative mg/dL (NEG-TRACE) Urine Glucose (UA) Negative mg/dL (NEG) Urine Ketones (Stick) Negative mg/dL (NEG) Urine Blood Trace (NEG) Urine Nitrite Negative (NEG) Urine Bilirubin Negative (NEG) Urine Urobilinogen Dipstick 0.2 mg/dL (0.2 mg/dL) Urine Leukocyte Esterase Negative (NEG) Urine RBC 3-5 /HPF (0-2) Urine WBC 0 /HPF (0-4) Urine Squamous Epithelial Cells Few /LPF Urine Bacteria 0 /HPF (0-FEW) Urine Hyaline Casts Occasional /HPF Urine Mucus Mod /LPF Laboratory Tests Test 01/10/17 15:10 01/10/17 15:50 01/10/17 20:40 01/11/17 03:05 White Blood Count 8.6 x10^3/uL (4.0-11.0) 7.3 x10^3/uL (4.0-11.0) Red Blood Count 4.16 x10^6/uL (3.50-5.40) 3.93 x10^6/uL (3.50-5.40) Hemoglobin 12.3 g/dL (12.0-15.5) 11.6 g/dL (12.0-15.5) Hematocrit 37.2 % (36.0-47.0) 35.1 % (36.0-47.0) Mean Corpuscular Volume 89 fL (79-100) 89 fL (79-100) Mean Corpuscular Hemoglobin 30 pg (25-35) 30 pg (25-35) Mean Corpuscular Hemoglobin Concent 33 g/dL (31-37) 33 g/dL (31-37) Red Cell Distribution Width 14.4 % (11.5-14.5) 14.8 % (11.5-14.5) Platelet Count 167 x10^3/uL (140-400) 160 x10^3/uL (140-400) Neutrophils (%) (Auto) 73 % (31-73) 59 % (31-73) Lymphocytes (%) (Auto) 20 % (24-48) 31 % (24-48) Monocytes (%) (Auto) 6 % (0-9) 8 % (0-9) Eosinophils (%) (Auto) 1 % (0-3) 2 % (0-3) Basophils (%) (Auto) 0 % (0-3) 0 % (0-3) Neutrophils # (Auto) 6.3 x10^3uL (1.8-7.7) 4.3 x10^3uL (1.8-7.7) Lymphocytes # (Auto) 1.7 x10^3/uL (1.0-4.8) 2.3 x10^3/uL (1.0-4.8) Monocytes # (Auto) 0.5 x10^3/uL (0.0-1.1) 0.6 x10^3/uL (0.0-1.1) Eosinophils # (Auto) 0.0 x10^3/uL (0.0-0.7) 0.1 x10^3/uL (0.0-0.7) Basophils # (Auto) 0.0 x10^3/uL (0.0-0.2) 0.0 x10^3/uL (0.0-0.2) Prothrombin Time 17.4 SEC (11.7-14.0) Prothromb Time International Ratio 1.5 (0.8-1.1) Activated Partial Thromboplast Time 32 SEC (24-38) Sodium Level 136 mmol/L (136-145) 140 mmol/L (136-145) Potassium Level 3.7 mmol/L (3.5-5.1) 3.7 mmol/L (3.5-5.1) Chloride Level 98 mmol/L (98-107) 102 mmol/L (98-107) Carbon Dioxide Level 31 mmol/L (21-32) 30 mmol/L (21-32) Anion Gap 7 (6-14) 8 (6-14) Blood Urea Nitrogen 13 mg/dL (7-20) 16 mg/dL (7-20) Creatinine 0.8 mg/dL (0.6-1.0) 0.8 mg/dL (0.6-1.0) Estimated GFR (Cockcroft-Gault) 83.5 83.5 BUN/Creatinine Ratio 16 (6-20) Glucose Level 105 mg/dL (70-99) 89 mg/dL (70-99) Calcium Level 10.0 mg/dL (8.5-10.1) 8.6 mg/dL (8.5-10.1) Magnesium Level 1.8 mg/dL (1.8-2.4) Total Bilirubin 0.4 mg/dL (0.2-1.0) Aspartate Amino Transf (AST/SGOT) 23 U/L (15-37) Alanine Aminotransferase (ALT/SGPT) 19 U/L (14-59) Alkaline Phosphatase 147 U/L (46-116) Creatine Kinase 57 U/L (26-192) Troponin I Quantitative < 0.017 ng/mL (0.000-0.055) < 0.017 ng/mL (0.000-0.055) < 0.017 ng/mL (0.000-0.055) GB-Qyv-U-Type Natriuretic Peptide 212 pg/mL (0-449) Total Protein 7.8 g/dL (6.4-8.2) Albumin 4.1 g/dL (3.4-5.0) Albumin/Globulin Ratio 1.1 (1.0-1.7) Lipase 297 U/L (73-393) Thyroid Stimulating Hormone (TSH) 1.840 uIU/mL (0.358-3.74) Urine Collection Type Unknown Urine Color Yellow Urine Clarity Clear Urine pH 8.0 Urine Specific [place] 1.010 Urine Protein Negative mg/dL (NEG-TRACE) Urine Glucose (UA) Negative mg/dL (NEG) Urine Ketones (Stick) Negative mg/dL (NEG) Urine Blood Trace (NEG) Urine Nitrite Negative (NEG) Urine Bilirubin Negative (NEG) Urine Urobilinogen Dipstick 0.2 mg/dL (0.2 mg/dL) Urine Leukocyte Esterase Negative (NEG) Urine RBC 3-5 /HPF (0-2) Urine WBC 0 /HPF (0-4) Urine Squamous Epithelial Cells Few /LPF Urine Bacteria 0 /HPF (0-FEW) Urine Hyaline Casts Occasional /HPF Urine Mucus Mod /LPF Medications Current Medications Nicardipine HCl 50 mg/Sodium Chloride 270 ml @ 0 mls/hr CONT PRN IV SEE I/O RECORD Last administered on 01/10/17 15:09; Start 01/10/17 at 15:00 Ondansetron HCl (Zofran) 4 mg PRN Q8HRS PRN IV NAUSEA/VOMITING; Start 01/10/17 at 15:00; Stop 01/11/17 at 14:59 Fentanyl Citrate (Fentanyl 2ml Vial) 50 mcg PRN Q2HR PRN IV PAIN; Start at 15:00; Stop 01/11/17 at 14:59 Alprazolam (Xanax) 0.5 mg BID PO Last administered on 01/11/17 08:05; Start 01/10/17 at 21:00 Amlodipine Besylate (Norvasc) 2.5 mg BID PO Last administered on 01/11/17 08:06 ; Start 01/10/17 at 21:00 Lisinopril (Prinivil) 20 mg DAILYWSUP PO ; Start 01/11/17 at 17:00 Memantine (Namenda) 10 mg BID PO Last administered on 01/11/17 08:05; Start 01/10/17 at 21:00 Metoprolol Succinate (Toprol Xl) 100 mg DAILY PO Last administered on 01/11/17 08:06; Start 01/11/17 at 09:00 Nitroglycerin (Nitrostat) 0.4 mg PRN Q5MIN PRN SL CHEST PAIN; Start 01/10/17 at 18:15 Sucralfate (Carafate) 1 gm TIDWMEALHC PO Last administered on 01/11/17 12:35; Start 01/10/17 at 21:00 Warfarin Sodium (Coumadin) 2.5 mg DAILY16 PO Last administered on 01/10/17 18: 32; Start 01/10/17 at 18:30 Fluticasone Propionate (Flonase) 2 spray DAILY NS Last administered on 08:07; Start 01/11/17 at 09:00 Pantoprazole Sodium (Protonix) 40 mg DAILYAC PO Last administered on 01/11/17 08:04; Start 01/11/17 at 07:30 Famotidine (Pepcid) 20 mg QHS PO Last administered on 01/10/17 20:47; Start 01/10/17 at 21:00 Lisinopril (Prinivil) 20 mg 1X ONCE PO Last administered on 01/10/17 18:29; Start 01/10/17 at 18:30; Stop 01/10/17 at 18:31; Status DC Warfarin Sodium (Coumadin Per Physician) 1 each PRN DAILY PRN MC SEE COMMENTS Last administered on 01/11/17 09:17; Start 01/10/17 at 18:30 Calcium Carbonate/ Glycine (Tums) 500 mg PRN Q2HR PRN PO INDIGESTION Last administered on 01/11/17 04:06; Start 01/11/17 at 03:45 Active Scripts Active Reported Ranitidine Hcl 150 Mg Capsule 150 Mg PO DAILY Amlodipine Besylate 2.5 Mg Tablet 2.5 Mg PO BID Namenda (Memantine Hcl) 10 Mg Tablet 1 Tab PO BID Flonase Allergy Relief (Fluticasone Propionate) 9.9 Ml [place].susp 2 Sprays NS DAILY NITROGLYCERIN SubLingual (Nitroglycerin) 0.4 Mg Tab.subl 0.4 Mg SL PRN Q5MIN PRN Warfarin Sodium 2.5 Mg Tablet 2.5 Mg PO DAILY Alternate 1-2 tablets every other day Omeprazole 40 Mg Capsule.dr 1 Cap PO DAILY Lisinopril 20 Mg Tablet 20 Mg PO DAILYWSUP Alprazolam 0.5 Mg Tablet 1 Tab PO BID Sucralfate 1 Gm/10 Ml Oral.susp 1 Gm PO TIDWMEALHC Toprol Xl (Metoprolol Succinate) 100 Mg Tab.er.24h 1 Tab PO DAILY Vitals/I & O Vital Sign - Last 24 Hours 01/10/17 01/10/17 01/10/17 01/10/17 14:40 15:09 15:18 16:00 Temp 98.4 98.1 98.4 98.1 Pulse 78 70 72 77 Resp 18 16 B/P (MAP) 238/118 (158) 205/83 (123) 177/96 (123) 165/74 (104) Pulse Ox 95 99 98 100 O2 Delivery Room Air Room Air Room Air Room Air 01/10/17 01/10/17 01/10/17 01/10/17 18:29 19:30 19:40 20:50 Temp 97.9 97.9 Pulse 74 80 84 Resp 17 B/P (MAP) 141/65 133/75 (94) 133/75 Pulse Ox 97 O2 Delivery Room Air Room Air 01/10/17 01/11/17 01/11/17 01/11/17 23:34 03:40 07:00 08:00 Temp 97.4 97.8 97.6 97.4 97.8 97.6 Pulse 67 68 61 Resp 16 17 18 B/P (MAP) 119/73 (88) 171/85 (113) 151/88 (109) Pulse Ox 94 100 O2 Delivery Room Air Room Air Room Air Room Air O2 Flow Rate 98.0 01/11/17 01/11/17 01/11/17 01/11/17 08:06 08:06 09:08 11:00 Temp 97.9 97.9 Pulse 61 61 64 Resp 20 B/P (MAP) 151/88 151/88 184/88 (120) Pulse Ox 98 O2 Delivery Room Air Room Air Intake and Output 01/10/17 01/10/17 01/11/17 15:00 23:00 07:00 Intake Total 315.5 ml 50 ml Output Total 400 ml 100 ml Balance -84.5 ml -50 ml WILLIAM CHRISTIAN III DO Jan 11, 2017 13:04
[2017-01-11 14:58] VITALS: BP_SYST 137; BP_SYST 221; BP_DIAS 198; BP_DIAS 72
[2017-01-11] MEDS: WARFARIN 2.5 MG TABLET. PO SCH (17:14)
[2017-01-11] MEDS: LISINOPRIL 20 MG TABLET PO SCH (17:15)
[2017-01-11 19:21] VITALS: BP 149/98
[2017-01-11] MEDS: FAMOTIDINE 20 MG TABLET. PO SCH (21:35)
--- NOTE | 2017-01-11 22:45 | PDOC2 ---
NEUROLOGY CONSULT Date of Admission Date of Admission DATE: 01/11/17 TIME: 22:34 Reason for consultation: Confusion and dementia History of present illness: Cassi Bauer is a pleasant 81-year-old woman who presented to the emergency room yesterday for suture removal. According to the ER report her son says she been quite confused. Family members were not present at the time of my evaluation so further history was not forthcoming. The patient does not know where she had sutures that required removal. She was a very unreliable historian. She lives in her own home. Her family and friends will take her shopping as she no longer drives. She does not know the medications or the times in which she has to take them. I do not know how long she has had difficulty with cognition as she has no insight whatsoever. She does admit to anxiety and depression. Past medical history: 1. Anxiety and depression 2. Dementia 3. Gastroesophageal reflux disease 4. Hypertension 5. Stroke 6. Hip replacement 7. Coronary artery disease status post stents 8. Hysterectomy 9. Back surgery Family history: She cannot recall the cause of the of her mother, father or daughter. Social history: She has been . She has 4 children, 2 boys and 2 girls. She denies smoking tobacco, drinking alcohol or use rank recreational drugs. Current Medications Current Medications Current Medications Nicardipine HCl 50 mg/Sodium Chloride 270 ml @ 0 mls/hr CONT PRN IV SEE I/O RECORD Last administered on 01/10/17 15:09; Start 01/10/17 at 15:00 Ondansetron HCl (Zofran) 4 mg PRN Q8HRS PRN IV NAUSEA/VOMITING; Start 01/10/17 at 15:00; Stop 01/11/17 at 14:59; Status DC Fentanyl Citrate (Fentanyl 2ml Vial) 50 mcg PRN Q2HR PRN IV PAIN; Start at 15:00; Stop 01/11/17 at 14:59; Status DC Alprazolam (Xanax) 0.5 mg BID PO Last administered on 01/11/17 21:35; Start 01/10/17 at 21:00 Amlodipine Besylate (Norvasc) 2.5 mg BID PO Last administered on 01/11/17 21:35 ; Start 01/10/17 at 21:00 Lisinopril (Prinivil) 20 mg DAILYWSUP PO Last administered on 01/11/17 17:15; Start 01/11/17 at 17:00 Memantine (Namenda) 10 mg BID PO Last administered on 01/11/17 21:35; Start 01/10/17 at 21:00 Metoprolol Succinate (Toprol Xl) 100 mg DAILY PO Last administered on 01/11/17 08:06; Start 01/11/17 at 09:00 Nitroglycerin (Nitrostat) 0.4 mg PRN Q5MIN PRN SL CHEST PAIN; Start 01/10/17 at 18:15 Sucralfate (Carafate) 1 gm TIDWMEALHC PO Last administered on 01/11/17 19:44; Start 01/10/17 at 21:00 Warfarin Sodium (Coumadin) 2.5 mg DAILY16 PO Last administered on 01/11/17 17: 14; Start 01/10/17 at 18:30 Fluticasone Propionate (Flonase) 2 spray DAILY NS Last administered on 08:07; Start 01/11/17 at 09:00 Pantoprazole Sodium (Protonix) 40 mg DAILYAC PO Last administered on 01/11/17 08:04; Start 01/11/17 at 07:30 Famotidine (Pepcid) 20 mg QHS PO Last administered on 01/11/17 21:35; Start 01/10/17 at 21:00 Lisinopril (Prinivil) 20 mg 1X ONCE PO Last administered on 01/10/17 18:29; Start 01/10/17 at 18:30; Stop 01/10/17 at 18:31; Status DC Warfarin Sodium (Coumadin Per Physician) 1 each PRN DAILY PRN MC SEE COMMENTS Last administered on 01/11/17 09:17; Start 01/10/17 at 18:30 Calcium Carbonate/ Glycine (Tums) 500 mg PRN Q2HR PRN PO INDIGESTION Last administered on 01/11/17 04:06; Start 01/11/17 at 03:45 Active Scripts Active Reported Ranitidine Hcl 150 Mg Capsule 150 Mg PO DAILY Amlodipine Besylate 2.5 Mg Tablet 2.5 Mg PO BID Namenda (Memantine Hcl) 10 Mg Tablet 1 Tab PO BID Flonase Allergy Relief (Fluticasone Propionate) 9.9 Ml [place].susp 2 Sprays NS DAILY NITROGLYCERIN SubLingual (Nitroglycerin) 0.4 Mg Tab.subl 0.4 Mg SL PRN Q5MIN PRN Warfarin Sodium 2.5 Mg Tablet 2.5 Mg PO DAILY Alternate 1-2 tablets every other day Omeprazole 40 Mg Capsule.dr 1 Cap PO DAILY Lisinopril 20 Mg Tablet 20 Mg PO DAILYWSUP Alprazolam 0.5 Mg Tablet 1 Tab PO BID Sucralfate 1 Gm/10 Ml Oral.susp 1 Gm PO TIDWMEALHC Toprol Xl (Metoprolol Succinate) 100 Mg Tab.er.24h 1 Tab PO DAILY Allergies Allergies: Coded Allergies: No Known Drug Allergies (Unverified , 12/30/16) ROS Review of System Constitutional: Negative Eyes: Negative HENT: Negative Respiratory: Negative Cardiovascular: Negative GI: She complains of heartburn. : She has urinary urgency and urge incontinence. Musculoskeletal: Negative Neurologic: She has dementia. Hematologic: Negative Lymphatic: Negative Psychiatric: She has anxiety and depression. Physical Exam Physical Examination She was alert, awake and cooperative. The speech was fluent and clear but she mumbled which made her difficult to understand. She had a extremely poor fund of recent and remote knowledge. Attention and concentration was poor. She was well-groomed and well-nourished. She was oriented to place, month and year. She had poor recall of 3 objects immediately and no recall after a few minutes. She had difficulty grasping the concept of the examination. Examination of the cranial nerves revealed visual mtz were full to confrontation. Extraocular movements were intact. The eyes were conjugate. Pursuit movements were smooth and saccadic movements were without dysmetria. The pupils were 3 millimeters and reacted to light. There was no afferent pupillary defect. Funduscopic examination did not reveal papilledema, exudate or hemorrhage. Facial sensation was intact. The muscles of mastication and facial expression were powerful symmetrically. Hearing was intact to finger rub. The palate arch symmetrically and the tongue was midline with full range of motion. Sternocleidomastoid and trapezius were powerful bilaterally. Muscle bulk and tone was normal. There was no arm drift or abnormal movement. The power was full and symmetric in the upper and lower extremities. Reflexes were 1/4 and symmetric in the upper and lower extremities but absent at the ankles. The toes were downgoing bilaterally. Coordination testing with finger to nose, heel to pina, fine motor was well performed although slightly slow. She could not grasp rapid alternating movements. The sensory examination was intact to pain, light touch, proprioception, graphesthesia, cold thermal and vibration. There was no extinction to double simultaneous stimulation. The gait was of a normal base and unsteady walk. When she stood she relies she had to go to the bathroom and race to the bathroom not quite making it. Auscultation of the carotid arteries did not reveal a bruit. Heart rhythm was regular without a murmur. Peripheral pulses are 2/4 at the wrists and feet. There was no edema or cyanosis of the extremities. Vitals VITALS Vital Signs Date Time Temp Pulse Resp B/P (MAP) Pulse Ox O2 Delivery O2 Flow Rate FiO2 01/11/17 21:35 74 149/98 01/11/17 19:21 98.3 16 97 Room Air 98.3 01/11/17 07:00 98.0 Labs Labs Laboratory Tests Test 01/10/17 15:10 01/10/17 15:50 01/10/17 20:40 01/11/17 03:05 White Blood Count 8.6 x10^3/uL (4.0-11.0) 7.3 x10^3/uL (4.0-11.0) Red Blood Count 4.16 x10^6/uL (3.50-5.40) 3.93 x10^6/uL (3.50-5.40) Hemoglobin 12.3 g/dL (12.0-15.5) 11.6 g/dL (12.0-15.5) Hematocrit 37.2 % (36.0-47.0) 35.1 % (36.0-47.0) Mean Corpuscular Volume 89 fL (79-100) 89 fL (79-100) Mean Corpuscular Hemoglobin 30 pg (25-35) 30 pg (25-35) Mean Corpuscular Hemoglobin Concent 33 g/dL (31-37) 33 g/dL (31-37) Red Cell Distribution Width 14.4 % (11.5-14.5) 14.8 % (11.5-14.5) Platelet Count 167 x10^3/uL (140-400) 160 x10^3/uL (140-400) Neutrophils (%) (Auto) 73 % (31-73) 59 % (31-73) Lymphocytes (%) (Auto) 20 % (24-48) 31 % (24-48) Monocytes (%) (Auto) 6 % (0-9) 8 % (0-9) Eosinophils (%) (Auto) 1 % (0-3) 2 % (0-3) Basophils (%) (Auto) 0 % (0-3) 0 % (0-3) Neutrophils # (Auto) 6.3 x10^3uL (1.8-7.7) 4.3 x10^3uL (1.8-7.7) Lymphocytes # (Auto) 1.7 x10^3/uL (1.0-4.8) 2.3 x10^3/uL (1.0-4.8) Monocytes # (Auto) 0.5 x10^3/uL (0.0-1.1) 0.6 x10^3/uL (0.0-1.1) Eosinophils # (Auto) 0.0 x10^3/uL (0.0-0.7) 0.1 x10^3/uL (0.0-0.7) Basophils # (Auto) 0.0 x10^3/uL (0.0-0.2) 0.0 x10^3/uL (0.0-0.2) Prothrombin Time 17.4 SEC (11.7-14.0) Prothromb Time International Ratio 1.5 (0.8-1.1) Activated Partial Thromboplast Time 32 SEC (24-38) Sodium Level 136 mmol/L (136-145) 140 mmol/L (136-145) Potassium Level 3.7 mmol/L (3.5-5.1) 3.7 mmol/L (3.5-5.1) Chloride Level 98 mmol/L (98-107) 102 mmol/L (98-107) Carbon Dioxide Level 31 mmol/L (21-32) 30 mmol/L (21-32) Anion Gap 7 (6-14) 8 (6-14) Blood Urea Nitrogen 13 mg/dL (7-20) 16 mg/dL (7-20) Creatinine 0.8 mg/dL (0.6-1.0) 0.8 mg/dL (0.6-1.0) Estimated GFR (Cockcroft-Gault) 83.5 83.5 BUN/Creatinine Ratio 16 (6-20) Glucose Level 105 mg/dL (70-99) 89 mg/dL (70-99) Calcium Level 10.0 mg/dL (8.5-10.1) 8.6 mg/dL (8.5-10.1) Magnesium Level 1.8 mg/dL (1.8-2.4) Total Bilirubin 0.4 mg/dL (0.2-1.0) Aspartate Amino Transf (AST/SGOT) 23 U/L (15-37) Alanine Aminotransferase (ALT/SGPT) 19 U/L (14-59) Alkaline Phosphatase 147 U/L (46-116) Creatine Kinase 57 U/L (26-192) Troponin I Quantitative < 0.017 ng/mL (0.000-0.055) < 0.017 ng/mL (0.000-0.055) < 0.017 ng/mL (0.000-0.055) HT-Qxs-D-Type Natriuretic Peptide 212 pg/mL (0-449) Total Protein 7.8 g/dL (6.4-8.2) Albumin 4.1 g/dL (3.4-5.0) Albumin/Globulin Ratio 1.1 (1.0-1.7) Lipase 297 U/L (73-393) Thyroid Stimulating Hormone (TSH) 1.840 uIU/mL (0.358-3.74) Urine Collection Type Unknown Urine Color Yellow Urine Clarity Clear Urine pH 8.0 Urine Specific [place] 1.010 Urine Protein Negative mg/dL (NEG-TRACE) Urine Glucose (UA) Negative mg/dL (NEG) Urine Ketones (Stick) Negative mg/dL (NEG) Urine Blood Trace (NEG) Urine Nitrite Negative (NEG) Urine Bilirubin Negative (NEG) Urine Urobilinogen Dipstick 0.2 mg/dL (0.2 mg/dL) Urine Leukocyte Esterase Negative (NEG) Urine RBC 3-5 /HPF (0-2) Urine WBC 0 /HPF (0-4) Urine Squamous Epithelial Cells Few /LPF Urine Bacteria 0 /HPF (0-FEW) Urine Hyaline Casts Occasional /HPF Urine Mucus Mod /LPF Laboratory Tests Test 01/11/17 03:05 White Blood Count 7.3 x10^3/uL (4.0-11.0) Red Blood Count 3.93 x10^6/uL (3.50-5.40) Hemoglobin 11.6 g/dL (12.0-15.5) Hematocrit 35.1 % (36.0-47.0) Mean Corpuscular Volume 89 fL (79-100) Mean Corpuscular Hemoglobin 30 pg (25-35) Mean Corpuscular Hemoglobin Concent 33 g/dL (31-37) Red Cell Distribution Width 14.8 % (11.5-14.5) Platelet Count 160 x10^3/uL (140-400) Neutrophils (%) (Auto) 59 % (31-73) Lymphocytes (%) (Auto) 31 % (24-48) Monocytes (%) (Auto) 8 % (0-9) Eosinophils (%) (Auto) 2 % (0-3) Basophils (%) (Auto) 0 % (0-3) Neutrophils # (Auto) 4.3 x10^3uL (1.8-7.7) Lymphocytes # (Auto) 2.3 x10^3/uL (1.0-4.8) Monocytes # (Auto) 0.6 x10^3/uL (0.0-1.1) Eosinophils # (Auto) 0.1 x10^3/uL (0.0-0.7) Basophils # (Auto) 0.0 x10^3/uL (0.0-0.2) Sodium Level 140 mmol/L (136-145) Potassium Level 3.7 mmol/L (3.5-5.1) Chloride Level 102 mmol/L (98-107) Carbon Dioxide Level 30 mmol/L (21-32) Anion Gap 8 (6-14) Blood Urea Nitrogen 16 mg/dL (7-20) Creatinine 0.8 mg/dL (0.6-1.0) Estimated GFR (Cockcroft-Gault) 83.5 Glucose Level 89 mg/dL (70-99) Calcium Level 8.6 mg/dL (8.5-10.1) Troponin I Quantitative < 0.017 ng/mL (0.000-0.055) Assessment/Plan Assessment/Plan 1. Dementia: Patient is an 81-year-old woman with an advanced dementia. I do not have the family did confirm how long this has actually been progressing. She would appear to of had this dementia for at least 5-8 years. It's possible she has progressed rapidly and has not had this for so long. She would not appear to be safe at all to live alone. We may need to look into alternative placement at the facility or with family members. She would not be safe to do cooking. I would anticipate she would easily become lost if she wandered about. She is currently on Namenda but does not appear to be on a cholinesterase inhibitor. I would consider initiating a medication such as Aricept, Exelon or Razadyne. The social sciences research scientist may want to work with the family to determine the next steps and she seems unsafe to live alone. I can order labs to look for treatable process. CT scan of the head did not reveal hydrocephalus, strokes or tumor. 2. Anxiety and depression: She states she has anxiety and depression. She may be well served by working with a psychiatrist if this is not well controlled. DELMAR WOODALL MD Jan 11, 2017 22:45
[2017-01-11 23:07] VITALS: BP 139/81
[2017-01-12 03:21] VITALS: BP 141/83
[2017-01-12 04:49] LABS: BASO % 0 % (0-3); EOS % 2 % (0-3); HEMATOCRIT 35.6 % (36.0-47.0); HEMOGLOBIN 11.6 g/dL (12.0-15.5); LYMPH % 27 % (24-48); MEAN CORPUSCULAR HEMOGLOBIN 29 pg (25-35); MEAN CORPUSCULAR HGB CONC 33 g/dL (31-37); MEAN CORPUSCULAR VOLUME 90 fL (79-100); MONO % 7 % (0-9); NEUT % 64 % (31-73); PLATELET COUNT 176 x10^3/uL (140-400); RED BLOOD COUNT 3.98 x10^6/uL (3.50-5.40); RED CELL DISTRIBUTION WIDTH 14.7 % (11.5-14.5); WHITE BLOOD COUNT 7.3 x10^3/uL (4.0-11.0)
[2017-01-12 05:14] LABS: ALBUMIN 3.3 g/dL (3.4-5.0); ALBUMIN/GLOBULIN RATIO 0.9 (1.0-1.7); CALCIUM 8.5 mg/dL (8.5-10.1); CREATININE 0.8 mg/dL (0.6-1.0); GFR 83.5; POTASSIUM 3.5 mmol/L (3.5-5.1); TOTAL BILIRUBIN 0.1 mg/dL (0.2-1.0); TOTAL PROTEIN 6.8 g/dL (6.4-8.2)
[2017-01-12 05:16] LABS: INR 1.4 (0.8-1.1); PROTHROMBIN TIME PATIENT 16.1 SEC (11.7-14.0)
--- NOTE | 2017-01-12 06:14 | ACF ---
Admission Forms Criteria HYPERTENSION Clinical Indications for Admission to Inpatient Care ( Place "X" for any and all applicable criteria): Admission is indicated for 1 or more of the following(1)(2)(3)(4)(5)(6)(7)(8)(9) (10): [X]I. Hypertensive emergency, with evidence of acute and progressing target organ disease as indicated by 1 or more of the following: [X]a) Hypertensive encephalopathy (eg, confusion, altered mental status) [ ]b) Cerebral infarction [ ]c) Intracranial hemorrhage [ ]d) Myocardial ischemia or infarction [ ]e) Heart failure (eg. Pulmonary edema) [ ]f) Aortic dissection [ ]g) Increased creatinine (new) with reduction of more than 50% in estimated glomerular filtration rate from baseline [ ]h) Seizure [ ]i) Papilledema [ ]j) Retinal hemorrhage [ ]k) Microangiopathic hemolytic anemia [ ]l) Other significant finding secondary to hypertension [ ]II. Adrenergic or sympathomimetic crisis (eg, severe hypertension due to pheochromocytoma crisis, cocaine or amphetamine intoxication, or clonidine withdrawal) [ ]III. Severe hypertension (SBP greater than 180 mmHg or DBP greater than 110 mmHg or greater than the 95th percentile for age, gender, and height in pediatric patients) that cannot be controlled (eg, to SBP less than 160 mmHg and DBP less than 100 mmHg in adults) by treatment with oral medication in emergency department or observation care Extended stay beyond goal length of stay may be needed for(11)(12)(13): [ ]a) Persistent hypertensive encephalopathy [ ]b) Continuation of pulmonary edema [ ]c) Recurring or persistent severe hypertension [ ]d) Target organ damage (eg, angina, stroke, aortic dissection) The original [employer] content created by [employer] has been revised. The portions of the content which have been revised are identified through the use of italic text, and [employer] has neither reviewed nor approved the modified material. All other unmodified content is copyright [employer]. Please see references footnoted in the original [employer] edition 2014 Admission Criteria Met?: Yes MANISH FISHER Jan 12, 2017 06:14
[2017-01-12 07:00] VITALS: BP 163/85
[2017-01-12] MEDS: SUCRALFATE 1 GM/10 ML ORAL.SUSP. PO SCH ×4 (08:08→16:52)
[2017-01-12] MEDS: PANTOPRAZOLE 40 MG TABLET.DR. PO SCH (08:08)
--- NOTE | 2017-01-12 09:04 | PDOC ---
PROGRESS NOTES Assessment Problems Medical Problems: (1) Hypertensive encephalopathy Status: Acute Hypertensive encephalopathy Dementia, Alzheimer's Anxiety and depression: Plan Consider trial of donepezil after acute illness over No other neurological studies required Subjective Complains of mild heartburn Objective Vital Signs Date Time Temp Pulse Resp B/P (MAP) Pulse Ox O2 Delivery O2 Flow Rate FiO2 01/12/17 07:00 97.6 66 16 163/85 (111) 98 Room Air 97.6 01/11/17 07:00 98.0 Intake and Output 01/12/17 07:00 Intake Total 1100 ml Output Total 200 ml Balance 900 ml Intake Oral 1100 ml Output Urine Total 200 ml # Voids 3 PHYSICAL EXAM Alert. Oriented to month, year, "hospital," name, but not too precise location EOMI. CN: no focal findings. Muscle tone: normal. Muscle strength: 4/5 DTR: 1+ Plantar reflex: Flexor Gait: not examined in bed. Sensory exam: no abnormal findings. No cerebellar signs elicited. Review of Relevant I have reviewed the following items thor (where applicable) has been applied. Labs Laboratory Tests Test 01/10/17 15:10 01/10/17 15:50 01/10/17 20:40 01/11/17 03:05 White Blood Count 8.6 x10^3/uL (4.0-11.0) 7.3 x10^3/uL (4.0-11.0) Red Blood Count 4.16 x10^6/uL (3.50-5.40) 3.93 x10^6/uL (3.50-5.40) Hemoglobin 12.3 g/dL (12.0-15.5) 11.6 g/dL (12.0-15.5) Hematocrit 37.2 % (36.0-47.0) 35.1 % (36.0-47.0) Mean Corpuscular Volume 89 fL (79-100) 89 fL (79-100) Mean Corpuscular Hemoglobin 30 pg (25-35) 30 pg (25-35) Mean Corpuscular Hemoglobin Concent 33 g/dL (31-37) 33 g/dL (31-37) Red Cell Distribution Width 14.4 % (11.5-14.5) 14.8 % (11.5-14.5) Platelet Count 167 x10^3/uL (140-400) 160 x10^3/uL (140-400) Neutrophils (%) (Auto) 73 % (31-73) 59 % (31-73) Lymphocytes (%) (Auto) 20 % (24-48) 31 % (24-48) Monocytes (%) (Auto) 6 % (0-9) 8 % (0-9) Eosinophils (%) (Auto) 1 % (0-3) 2 % (0-3) Basophils (%) (Auto) 0 % (0-3) 0 % (0-3) Neutrophils # (Auto) 6.3 x10^3uL (1.8-7.7) 4.3 x10^3uL (1.8-7.7) Lymphocytes # (Auto) 1.7 x10^3/uL (1.0-4.8) 2.3 x10^3/uL (1.0-4.8) Monocytes # (Auto) 0.5 x10^3/uL (0.0-1.1) 0.6 x10^3/uL (0.0-1.1) Eosinophils # (Auto) 0.0 x10^3/uL (0.0-0.7) 0.1 x10^3/uL (0.0-0.7) Basophils # (Auto) 0.0 x10^3/uL (0.0-0.2) 0.0 x10^3/uL (0.0-0.2) Prothrombin Time 17.4 SEC (11.7-14.0) Prothromb Time International Ratio 1.5 (0.8-1.1) Activated Partial Thromboplast Time 32 SEC (24-38) Sodium Level 136 mmol/L (136-145) 140 mmol/L (136-145) Potassium Level 3.7 mmol/L (3.5-5.1) 3.7 mmol/L (3.5-5.1) Chloride Level 98 mmol/L (98-107) 102 mmol/L (98-107) Carbon Dioxide Level 31 mmol/L (21-32) 30 mmol/L (21-32) Anion Gap 7 (6-14) 8 (6-14) Blood Urea Nitrogen 13 mg/dL (7-20) 16 mg/dL (7-20) Creatinine 0.8 mg/dL (0.6-1.0) 0.8 mg/dL (0.6-1.0) Estimated GFR (Cockcroft-Gault) 83.5 83.5 BUN/Creatinine Ratio 16 (6-20) Glucose Level 105 mg/dL (70-99) 89 mg/dL (70-99) Calcium Level 10.0 mg/dL (8.5-10.1) 8.6 mg/dL (8.5-10.1) Magnesium Level 1.8 mg/dL (1.8-2.4) Total Bilirubin 0.4 mg/dL (0.2-1.0) Aspartate Amino Transf (AST/SGOT) 23 U/L (15-37) Alanine Aminotransferase (ALT/SGPT) 19 U/L (14-59) Alkaline Phosphatase 147 U/L (46-116) Creatine Kinase 57 U/L (26-192) Troponin I Quantitative < 0.017 ng/mL (0.000-0.055) < 0.017 ng/mL (0.000-0.055) < 0.017 ng/mL (0.000-0.055) VN-Gpf-F-Type Natriuretic Peptide 212 pg/mL (0-449) Total Protein 7.8 g/dL (6.4-8.2) Albumin 4.1 g/dL (3.4-5.0) Albumin/Globulin Ratio 1.1 (1.0-1.7) Lipase 297 U/L (73-393) Thyroid Stimulating Hormone (TSH) 1.840 uIU/mL (0.358-3.74) Urine Collection Type Unknown Urine Color Yellow Urine Clarity Clear Urine pH 8.0 Urine Specific [place] 1.010 Urine Protein Negative mg/dL (NEG-TRACE) Urine Glucose (UA) Negative mg/dL (NEG) Urine Ketones (Stick) Negative mg/dL (NEG) Urine Blood Trace (NEG) Urine Nitrite Negative (NEG) Urine Bilirubin Negative (NEG) Urine Urobilinogen Dipstick 0.2 mg/dL (0.2 mg/dL) Urine Leukocyte Esterase Negative (NEG) Urine RBC 3-5 /HPF (0-2) Urine WBC 0 /HPF (0-4) Urine Squamous Epithelial Cells Few /LPF Urine Bacteria 0 /HPF (0-FEW) Urine Hyaline Casts Occasional /HPF Urine Mucus Mod /LPF Test 01/12/17 03:40 White Blood Count 7.3 x10^3/uL (4.0-11.0) Red Blood Count 3.98 x10^6/uL (3.50-5.40) Hemoglobin 11.6 g/dL (12.0-15.5) Hematocrit 35.6 % (36.0-47.0) Mean Corpuscular Volume 90 fL (79-100) Mean Corpuscular Hemoglobin 29 pg (25-35) Mean Corpuscular Hemoglobin Concent 33 g/dL (31-37) Red Cell Distribution Width 14.7 % (11.5-14.5) Platelet Count 176 x10^3/uL (140-400) Neutrophils (%) (Auto) 64 % (31-73) Lymphocytes (%) (Auto) 27 % (24-48) Monocytes (%) (Auto) 7 % (0-9) Eosinophils (%) (Auto) 2 % (0-3) Basophils (%) (Auto) 0 % (0-3) Neutrophils # (Auto) 4.7 x10^3uL (1.8-7.7) Lymphocytes # (Auto) 2.0 x10^3/uL (1.0-4.8) Monocytes # (Auto) 0.5 x10^3/uL (0.0-1.1) Eosinophils # (Auto) 0.1 x10^3/uL (0.0-0.7) Basophils # (Auto) 0.0 x10^3/uL (0.0-0.2) Prothrombin Time 16.1 SEC (11.7-14.0) Prothromb Time International Ratio 1.4 (0.8-1.1) Sodium Level 140 mmol/L (136-145) Potassium Level 3.5 mmol/L (3.5-5.1) Chloride Level 102 mmol/L (98-107) Carbon Dioxide Level 33 mmol/L (21-32) Anion Gap 5 (6-14) Blood Urea Nitrogen 15 mg/dL (7-20) Creatinine 0.8 mg/dL (0.6-1.0) Estimated GFR (Cockcroft-Gault) 83.5 BUN/Creatinine Ratio 19 (6-20) Glucose Level 87 mg/dL (70-99) Calcium Level 8.5 mg/dL (8.5-10.1) Total Bilirubin 0.1 mg/dL (0.2-1.0) Aspartate Amino Transf (AST/SGOT) 22 U/L (15-37) Alanine Aminotransferase (ALT/SGPT) 18 U/L (14-59) Alkaline Phosphatase 160 U/L (46-116) Total Protein 6.8 g/dL (6.4-8.2) Albumin 3.3 g/dL (3.4-5.0) Albumin/Globulin Ratio 0.9 (1.0-1.7) Laboratory Tests Test 01/12/17 03:40 White Blood Count 7.3 x10^3/uL (4.0-11.0) Red Blood Count 3.98 x10^6/uL (3.50-5.40) Hemoglobin 11.6 g/dL (12.0-15.5) Hematocrit 35.6 % (36.0-47.0) Mean Corpuscular Volume 90 fL (79-100) Mean Corpuscular Hemoglobin 29 pg (25-35) Mean Corpuscular Hemoglobin Concent 33 g/dL (31-37) Red Cell Distribution Width 14.7 % (11.5-14.5) Platelet Count 176 x10^3/uL (140-400) Neutrophils (%) (Auto) 64 % (31-73) Lymphocytes (%) (Auto) 27 % (24-48) Monocytes (%) (Auto) 7 % (0-9) Eosinophils (%) (Auto) 2 % (0-3) Basophils (%) (Auto) 0 % (0-3) Neutrophils # (Auto) 4.7 x10^3uL (1.8-7.7) Lymphocytes # (Auto) 2.0 x10^3/uL (1.0-4.8) Monocytes # (Auto) 0.5 x10^3/uL (0.0-1.1) Eosinophils # (Auto) 0.1 x10^3/uL (0.0-0.7) Basophils # (Auto) 0.0 x10^3/uL (0.0-0.2) Prothrombin Time 16.1 SEC (11.7-14.0) Prothromb Time International Ratio 1.4 (0.8-1.1) Sodium Level 140 mmol/L (136-145) Potassium Level 3.5 mmol/L (3.5-5.1) Chloride Level 102 mmol/L (98-107) Carbon Dioxide Level 33 mmol/L (21-32) Anion Gap 5 (6-14) Blood Urea Nitrogen 15 mg/dL (7-20) Creatinine 0.8 mg/dL (0.6-1.0) Estimated GFR (Cockcroft-Gault) 83.5 BUN/Creatinine Ratio 19 (6-20) Glucose Level 87 mg/dL (70-99) Calcium Level 8.5 mg/dL (8.5-10.1) Total Bilirubin 0.1 mg/dL (0.2-1.0) Aspartate Amino Transf (AST/SGOT) 22 U/L (15-37) Alanine Aminotransferase (ALT/SGPT) 18 U/L (14-59) Alkaline Phosphatase 160 U/L (46-116) Total Protein 6.8 g/dL (6.4-8.2) Albumin 3.3 g/dL (3.4-5.0) Albumin/Globulin Ratio 0.9 (1.0-1.7) Medications Current Medications Nicardipine HCl 50 mg/Sodium Chloride 270 ml @ 0 mls/hr CONT PRN IV SEE I/O RECORD Last administered on 01/10/17 15:09; Start 01/10/17 at 15:00 Ondansetron HCl (Zofran) 4 mg PRN Q8HRS PRN IV NAUSEA/VOMITING; Start 01/10/17 at 15:00; Stop 01/11/17 at 14:59; Status DC Fentanyl Citrate (Fentanyl 2ml Vial) 50 mcg PRN Q2HR PRN IV PAIN; Start at 15:00; Stop 01/11/17 at 14:59; Status DC Alprazolam (Xanax) 0.5 mg BID PO Last administered on 01/11/17 21:35; Start 01/10/17 at 21:00 Amlodipine Besylate (Norvasc) 2.5 mg BID PO Last administered on 01/11/17 21:35 ; Start 01/10/17 at 21:00 Lisinopril (Prinivil) 20 mg DAILYWSUP PO Last administered on 01/11/17 17:15; Start 01/11/17 at 17:00 Memantine (Namenda) 10 mg BID PO Last administered on 01/11/17 21:35; Start 01/10/17 at 21:00 Metoprolol Succinate (Toprol Xl) 100 mg DAILY PO Last administered on 01/11/17 08:06; Start 01/11/17 at 09:00 Nitroglycerin (Nitrostat) 0.4 mg PRN Q5MIN PRN SL CHEST PAIN; Start 01/10/17 at 18:15 Sucralfate (Carafate) 1 gm TIDWMEALHC PO Last administered on 01/12/17 08:08; Start 01/10/17 at 21:00 Warfarin Sodium (Coumadin) 2.5 mg DAILY16 PO Last administered on 01/11/17 17: 14; Start 01/10/17 at 18:30 Fluticasone Propionate (Flonase) 2 spray DAILY NS Last administered on 08:07; Start 01/11/17 at 09:00 Pantoprazole Sodium (Protonix) 40 mg DAILYAC PO Last administered on 01/12/17 08:08; Start 01/11/17 at 07:30 Famotidine (Pepcid) 20 mg QHS PO Last administered on 01/11/17 21:35; Start 01/10/17 at 21:00 Lisinopril (Prinivil) 20 mg 1X ONCE PO Last administered on 01/10/17 18:29; Start 01/10/17 at 18:30; Stop 01/10/17 at 18:31; Status DC Warfarin Sodium (Coumadin Per Physician) 1 each PRN DAILY PRN MC SEE COMMENTS Last administered on 01/11/17 09:17; Start 01/10/17 at 18:30 Calcium Carbonate/ Glycine (Tums) 500 mg PRN Q2HR PRN PO INDIGESTION Last administered on 01/11/17 22:50; Start 01/11/17 at 03:45 Active Scripts Active Reported Ranitidine Hcl 150 Mg Capsule 150 Mg PO DAILY Amlodipine Besylate 2.5 Mg Tablet 2.5 Mg PO BID Namenda (Memantine Hcl) 10 Mg Tablet 1 Tab PO BID Flonase Allergy Relief (Fluticasone Propionate) 9.9 Ml [place].susp 2 Sprays NS DAILY NITROGLYCERIN SubLingual (Nitroglycerin) 0.4 Mg Tab.subl 0.4 Mg SL PRN Q5MIN PRN Warfarin Sodium 2.5 Mg Tablet 2.5 Mg PO DAILY Alternate 1-2 tablets every other day Omeprazole 40 Mg Capsule.dr 1 Cap PO DAILY Lisinopril 20 Mg Tablet 20 Mg PO DAILYWSUP Alprazolam 0.5 Mg Tablet 1 Tab PO BID Sucralfate 1 Gm/10 Ml Oral.susp 1 Gm PO TIDWMEALHC Toprol Xl (Metoprolol Succinate) 100 Mg Tab.er.24h 1 Tab PO DAILY Vitals/I & O Vital Sign - Last 24 Hours 01/11/17 01/11/17 01/11/17 01/11/17 09:08 11:00 14:58 17:15 Temp 97.9 98.0 97.9 98.0 Pulse 64 71 71 Resp 20 20 B/P (MAP) 184/88 (120) 137/72 (93) 137/72 Pulse Ox 98 98 O2 Delivery Room Air Room Air Room Air 01/11/17 01/11/17 01/11/17 01/11/17 19:21 19:30 21:35 23:07 Temp 98.3 98.0 98.3 98.0 Pulse 80 74 65 Resp 16 16 B/P (MAP) 149/98 (115) 149/98 139/81 (100) Pulse Ox 97 95 O2 Delivery Room Air Room Air Room Air 01/12/17 01/12/17 03:21 07:00 Temp 97.4 97.6 97.4 97.6 Pulse 64 66 Resp 16 16 B/P (MAP) 141/83 (102) 163/85 (111) Pulse Ox 99 98 O2 Delivery Room Air Room Air Intake and Output 01/11/17 01/11/17 01/12/17 15:00 23:00 07:00 Intake Total 900 ml 200 ml Output Total 200 ml Balance 900 ml 0 ml EDUARDO RAMIREZ MD Jan 12, 2017 09:04
[2017-01-12 11:00] VITALS: BP 163/85
--- NOTE | 2017-01-12 11:14 | PDOC3 ---
Discharge Summary* Date of Admission: Jan 10, 2017 Date of Discharge: Jan 12, 2017 Admitting Diagnosis Problems Medical Problems: (1) Hypertensive encephalopathy Status: Acute Problems: Final Diagnosis Problems Medical Problems: (1) Hypertensive encephalopathy Status: Acute Brief Hospital Course Ms. Bauer is a 81 year old woman presenting to the emergency Department for a suture removal but son says that she has been quite confused. She lives by herself and family sometimes stays with her. Patient is confused on the date and she took 1 minute to realize it was 2016. She says that she is having some headache chest pain as well. He is burning in the center of her chest and she is not sure how long this has been going on. Patient is supposed be on blood pressure medications but she does not know what her blood sugar medications are. She was admitted for further observation and work up. Neurology consult was obtained, and her confusion was attributed to hypertensive encephalopathy superimposed on Alzheimer's dementia. The hypertension was addressed with adjustment of her BP med regimen. She was transferred to SNF for rehab. Disposition/Orders: D/C to Another Facility CONDITION AT DISCHARGE: Improved Diet: Cardiac Scheduled Alprazolam (Alprazolam), 1 TAB PO BID, (Reported) Amlodipine Besylate (Amlodipine Besylate), 2.5 MG PO BID, (Reported) Fluticasone Propionate (Flonase Allergy Relief), 2 SPRAYS NS DAILY, (Reported) Lisinopril (Lisinopril), 20 MG PO DAILYWSUP, (Reported) Memantine Hcl (Namenda), 1 TAB PO BID, (Reported) Metoprolol Succinate (Toprol Xl), 1 TAB PO DAILY, (Reported) Omeprazole (Omeprazole), 1 CAP PO DAILY, (Reported) Ranitidine Hcl (Ranitidine Hcl), 150 MG PO DAILY, (Reported) Sucralfate (Sucralfate), 1 GM PO TIDWMEALHC, (Reported) Warfarin Sodium (Warfarin Sodium), 2.5 MG PO DAILY, (Reported) Scheduled PRN Nitroglycerin (NITROGLYCERIN SubLingual), 0.4 MG SL PRN Q5MIN PRN for CHEST PAIN , (Reported) FOLLOW UP APPOINTMENT: PCP upon return to home Time Spent Total time spent with patient [] minutes for coordination of care, counseling, and education. VENITA QUILES MD Jan 12, 2017 11:14
[2017-01-12] MEDS: ALPRAZolam 0.5 MG TABLET PO SCH (11:30)
[2017-01-12] MEDS: MEMANTINE 10 MG TABLET. PO SCH (11:30)
[2017-01-12] MEDS: METOPROLOL SUCC 24HR ER 100 MG TAB.ER.24H. PO SCH (11:31)
[2017-01-12] MEDS: amLODIPine BESYLATE 2.5 MG TABLET PO SCH (11:31)
[2017-01-12] MEDS: FLUTICASONE 50MCG/NASAL SPRAY 16GM BOTTLE. NS SCH (11:31)
[2017-01-12] MEDS ORDERED: CALCIUM CARBONATE 500 MG TAB.CHEW PO PRN (12:30)
[2017-01-12] MEDS: CALCIUM CARBONATE 500 MG TAB.CHEW PO PRN (13:07)
[2017-01-12 13:12] LABS: FOLATE 12.44 ng/ml (3.2-20.0)
[2017-01-12 15:00] VITALS: BP 157/83
[2017-01-12 16:52] VITALS: BP 157/83
[2017-01-12] MEDS: LISINOPRIL 20 MG TABLET PO SCH (16:52)
[2017-01-12] MEDS: WARFARIN 2.5 MG TABLET. PO SCH (16:53)
[2017-01-13 05:20] LABS: RPR REFLEX Non Reactive (Non Reactive)
== END 2017-01-12 17:20 | DRG 77 ==
LOC: ER 14:12 → 2 NORTH 14:47
PROVIDERS: ADMIT Internal Medicine; ATTEND Internal Medicine
DX: I67.4 Hypertensive encephalopathy (principal); I16.0 Hypertensive urgency; I16.1 Hypertensive emergency; G93.41 Metabolic encephalopathy; F41.9 Anxiety disorder, unspecified; F32.9 Major depressive disorder, single episode, unspecified; K21.9 Gastro-esophageal reflux disease without esophagitis; Z96.649 Presence of unspecified artificial hip joint; N39.41 Urge incontinence; I10 Essential (primary) hypertension; G30.9 Alzheimer's disease, unspecified; F02.80 Dementia in other diseases classified elsewhere, unspecified severity, without behavioral disturbance, psychotic disturbance, mood disturbance, and anxiety; I25.10 Atherosclerotic heart disease of native coronary artery without angina pectoris; Z91.19 Patient's noncompliance with other medical treatment and regimen; Z95.5 Presence of coronary angioplasty implant and graft; Z90.710 Acquired absence of both cervix and uterus; Z79.899 Other long term (current) drug therapy; Z79.1 Long term (current) use of non-steroidal anti-inflammatories (NSAID); Z79.2 Long term (current) use of antibiotics; Z86.73 Personal history of transient ischemic attack (TIA), and cerebral infarction without residual deficits; I12.9 Hypertensive chronic kidney disease with stage 1 through stage 4 chronic kidney disease, or unspecified chronic kidney disease; N18.1 Chronic kidney disease, stage 1
CPT/HCPCS: 36415; 70450; 71010; 80048; 80053; 81001; 82550; 82607; 82746; 83690; 83735; 83880; 84443; 84484; 85027; 85610; 85730; 86593; 93005; 96365; C1887; J7050; 97116; 99285-25; J7030

== ENCOUNTER 2017-01-17 20:22 | Emergency (ER) | payer MEDICARE, OTHER ==
[~2017-01-17] VITALS: Ht 160 cm; Wt 58.1 kg
[~2017-01-17 20:22] MED LIST: ALPR0.5T6 PO; AMLO2.5T PO; FLUT9.9S NS; LISI-334 PO; MEMA10TA PO; METO100T5 PO; NITR0.4T22 SL; OMEP40CA5 PO; RANI150C PO; SUCR1ORA11 PO; WARF2.5T71 PO
[2017-01-17] MEDS ORDERED: MAG HYDROX/ALUMINUM HYD/SIMETH 30 ML ORAL.SUSP PO ONE (20:45)
[2017-01-17 21:33] LABS: BASO % 0 % (0-3); EOS % 1 % (0-3); HEMATOCRIT 31.7 % (36.0-47.0); HEMOGLOBIN 10.9 g/dL (12.0-15.5); LYMPH # 1.5 x10^3/uL (1.0-4.8); LYMPH % 15 % (24-48); MEAN CORPUSCULAR HEMOGLOBIN 30 pg (25-35); MEAN CORPUSCULAR HGB CONC 34 g/dL (31-37); MEAN CORPUSCULAR VOLUME 87 fL (79-100); MONO % 6 % (0-9); NEUT % 78 % (31-73); PLATELET COUNT 183 x10^3/uL (140-400); RED BLOOD COUNT 3.64 x10^6/uL (3.50-5.40); RED CELL DISTRIBUTION WIDTH 14.4 % (11.5-14.5)
[2017-01-17 21:41] LABS: ANION GAP 6 (6-14); BLOOD UREA NITROGEN 9 mg/dL (7-20); CALCIUM 9.1 mg/dL (8.5-10.1); CARBON DIOXIDE 33 mmol/L (21-32); CHLORIDE 97 mmol/L (98-107); CREATININE 0.6 mg/dL (0.6-1.0); GFR 116.4; GLUCOSE 116 mg/dL (70-99); POTASSIUM 3.6 mmol/L (3.5-5.1); SODIUM 136 mmol/L (136-145)
[2017-01-17 21:47] LABS: ALBUMIN 3.3 g/dL (3.4-5.0); ALK PHOS 197 U/L (46-116); ALT (SGPT) 52 U/L (14-59); AST (SGOT) 56 U/L (15-37); DIRECT BILIRUBIN < 0.1 mg/dL (0.0-0.2); TOTAL BILIRUBIN 0.2 mg/dL (0.2-1.0)
[2017-01-17 21:55] LABS: CREATINE KINASE 49 U/L (26-192)
[2017-01-17 21:56] LABS: CKMB MASS < 0.5 ng/mL (0.0-3.6)
[2017-01-17 22:53] VITALS: BP 196/117
[2017-01-17] MEDS ORDERED: HYDR-971 PO (22:56)
--- NOTE | 2017-01-17 22:56 | PHYS DOC ---
Past Medical History Past Medical History: Anxiety, Dementia, Depression, GERD, Hypertension, Stroke Past Surgical History: Hip Replacement, Hysterectomy Additional Past Surgical Histo: cardiac stents, back, Alcohol Use: None Drug Use: None Adult General Chief Complaint Chief Complaint: RIB PAIN HPI HPI Patient is a 81 year old female brought to the ED from her retirement with the complaint of right-sided chest pain. Patient was recently hospitalized after a fall, and discharged, also has been seen here for located blood pressure. Today, the history is from the paramedics, some from the patient, as well as the patient's daughter. The patient has been complaining intermittently but most of the time since Thursday or Thursday of chest pain on the right side. It's worse with a deep breath and also worse with movement. The patient did have a fall recently and the daughter wonders if it could be from the fall. There is no reported associated diaphoresis, dyspnea, nausea. The patient does not have any known cardiac problems. They have not tried anything for the symptoms. The patient has had a history of heartburn in the past as well. Review of Systems Review of Systems Patient has dementia and review of systems was not felt to be accurate Current Medications Current Medications Current Medications Medications (Trade) Dose Ordered Sig/Arnoldo Start Time Stop Time Status Last Admin Dose Admin Acetaminophen/ Hydrocodone Bitart (Lortab 5/325) 1 tab 1X ONCE 01/17/17 23:00 01/17/17 23:01 DC 01/17/17 23:07 1 TAB Al Hydroxide/Mg Hydroxide (Mylanta Plus Xs) 30 ml 1X ONCE 01/17/17 20:45 01/17/17 20:46 DC 01/17/17 20:51 30 ML Allergies Allergies Allergies Coded Allergies Type Severity Reaction Last Updated Verified No Known Drug Allergies 12/30/16 No Physical Exam Physical Exam Constitutional: Well developed, well nourished, no acute distress, non-toxic appearance. Alert, cooperative, appears to be at her baseline. HENT: Normocephalic, atraumatic, bilateral external ears normal, nose normal. [ ] Eyes: conjunctiva normal, no discharge. [] Neck: Normal range of motion, no stridor. [] Cardiovascular:Heart rate regular rhythm, no murmur Chest wall tender to palpation over the lower chest wall diffusely, more so on the right, no point tenderness, no deformity Lungs & Thorax: Bilateral breath sounds clear to auscultation [] Abdomen: Bowel sounds normal, soft, no tenderness, no masses, no pulsatile masses. [No right upper quadrant tenderness, negative Grijalva's. Skin: Warm, dry, no erythema, no rash. [] Extremities: No tenderness, no cyanosis, no clubbing, ROM intact, no edema. [] Neurologic: Alert and oriented X 3, normal motor function, normal sensory function, no focal deficits noted. [] Current Patient Data Vital Signs Vital Signs Date Time Temp Pulse Resp B/P (MAP) Pulse Ox O2 Delivery O2 Flow Rate FiO2 01/17/17 23:07 16 01/17/17 22:53 83 196/117 (143) 95 Room Air 01/17/17 20:29 98.7 98.7 Lab Values Laboratory Tests Test 01/17/17 21:20 White Blood Count 10.0 x10^3/uL (4.0-11.0) Red Blood Count 3.64 x10^6/uL (3.50-5.40) Hemoglobin 10.9 g/dL (12.0-15.5) L Hematocrit 31.7 % (36.0-47.0) L Mean Corpuscular Volume 87 fL (79-100) Mean Corpuscular Hemoglobin 30 pg (25-35) Mean Corpuscular Hemoglobin Concent 34 g/dL (31-37) Red Cell Distribution Width 14.4 % (11.5-14.5) Platelet Count 183 x10^3/uL (140-400) Neutrophils (%) (Auto) 78 % (31-73) H Lymphocytes (%) (Auto) 15 % (24-48) L Monocytes (%) (Auto) 6 % (0-9) Eosinophils (%) (Auto) 1 % (0-3) Basophils (%) (Auto) 0 % (0-3) Neutrophils # (Auto) 7.8 x10^3uL (1.8-7.7) H Lymphocytes # (Auto) 1.5 x10^3/uL (1.0-4.8) Monocytes # (Auto) 0.6 x10^3/uL (0.0-1.1) Eosinophils # (Auto) 0.1 x10^3/uL (0.0-0.7) Basophils # (Auto) 0.0 x10^3/uL (0.0-0.2) Sodium Level 136 mmol/L (136-145) Potassium Level 3.6 mmol/L (3.5-5.1) Chloride Level 97 mmol/L (98-107) L Carbon Dioxide Level 33 mmol/L (21-32) H Anion Gap 6 (6-14) Blood Urea Nitrogen 9 mg/dL (7-20) Creatinine 0.6 mg/dL (0.6-1.0) Estimated GFR (Cockcroft-Gault) 116.4 Glucose Level 116 mg/dL (70-99) H Calcium Level 9.1 mg/dL (8.5-10.1) Magnesium Level 2.0 mg/dL (1.8-2.4) Total Bilirubin 0.2 mg/dL (0.2-1.0) Direct Bilirubin < 0.1 mg/dL (0.0-0.2) Aspartate Amino Transferase (AST) 56 U/L (15-37) H Alanine Aminotransferase (ALT) 52 U/L (14-59) Alkaline Phosphatase 197 U/L (46-116) H Creatine Kinase 49 U/L (26-192) Creatine Kinase MB (Mass) < 0.5 ng/mL (0.0-3.6) Creatine Kinase MB Relative Index 1.0 % (0-4) Troponin I Quantitative < 0.017 ng/mL (0.000-0.055) Total Protein 7.0 g/dL (6.4-8.2) Albumin 3.3 g/dL (3.4-5.0) L Lipase 347 U/L (73-393) Laboratory Tests 01/17/17 21:20 Laboratory Tests 01/17/17 21:20 EKG EKG Twelve-lead EKG read by me. Sinus rhythm. Heart rate 87. There are no acute ST or T wave changes indicative of ischemia or infarction. No STEMI. 2027 [] Radiology/Procedures Radiology/Procedures One view portable chest x-ray read by me. No acute findings. [] Course & Med Decision Making Course & Med Decision Making Pertinent Labs and Imaging studies reviewed. (See chart for details)\ 81-year-old female brought to the ED for chest pain which has been relatively constant for about 5 days now. It sounds musculoskeletal and does not sound cardiac. EKG, labs are unremarkable, as is chest x-ray. We did give the patient a dose of Mylanta in the emergency department, and at first her daughter told me that she is still having quite a bit of pain but then the patient told me that the pain was just about gone. She does have some dementia and I'm not sure how accurate her history is. She did seem to me to be wincing with pain especially with movement and I think it might help her get some better rest if we do medicate her for pain so she was given a Dickens in the ED and I wrote a prescription for some Dickens to be administered in the retirement. Patient's daughter understands and agrees with this plan. [] Dragon Disclaimer Dragon Disclaimer This electronic medical record was generated, in whole or in part, using a voice recognition dictation system. Departure Departure Impression: Primary Impression: Rib pain on right side Additional Impression: Rib fracture Disposition: 01 HOME, SELF-CARE Condition: STABLE Referrals: LASHANDA PARKINSON MD (PCP) Patient Instructions: Rib Fracture, [id number] Additional Instructions: As we discussed, tests in the emergency department were normal. It sounds like you may have a cracked rib. Sometimes, this hurts for a week or 2 and then feels a little better but it will likely hurt for 4-6 weeks if it is a cracked rib. I have prescribed pain pills to use as needed. Do not give the pain pills unless needed. They will cause sedation and constipation. Scripts Hydrocodone/Apap 5-325 (NORCO 5-325 TABLET) 1 Each Tablet 0.5-1 TAB PO Q4-6HRS for PAIN, #12 TAB Prov: BALAJI LEMUS MD 01/17/17 Problem Qualifiers BALAJI LEMUS MD Jan 17, 2017 22:56
[2017-01-17] MEDS ORDERED: HYDROcodone/APAP 5/325MG 1 TAB TABLET PO ONE (23:00)
--- NOTE | 2017-01-18 07:42 | RAD ---
Portable AP chest. History: Mid chest pain AP view was taken of the chest. Lungs are free of infiltrates. Heart is normal in size. There is no effusion. There are coronary stents. Impression: 1. No acute chest disease.
--- NOTE | 2017-01-18 11:16 | EKG ---
[facility] [address] [place] [address] Test Date: 2017-01-17 Test Time: 20:26:41 Pat Name: EFREN QUACH Department: Room: Gender: F Teletype Technician: JOVANI : 1935 Requested By: BALAJI LEMUS Order Number: [id number] Reading MD: Measurements Intervals [place] Rate: 87 P: 26 [place]: 140 QRS: -16 QRSD: 78 T: 31 QT: 380 QTc: 458 Interpretive Statements SINUS RHYTHM LEFTWARD AXIS QRS(T) CONTOUR ABNORMALITY CONSIDER ANTEROSEPTAL MYOCARDIAL DAMAGE POSSIBLY ABNORMAL ECG RI6.01 No previous ECG available for comparison
== END 2017-01-17 23:39 | disposition home or self-care (01) ==
LOC: ER 20:22
DX: S22.31XA Fracture of one rib, right side, initial encounter for closed fracture (principal); F41.9 Anxiety disorder, unspecified; F03.90 Unspecified dementia, unspecified severity, without behavioral disturbance, psychotic disturbance, mood disturbance, and anxiety; F32.9 Major depressive disorder, single episode, unspecified; K21.9 Gastro-esophageal reflux disease without esophagitis; I10 Essential (primary) hypertension; Z86.73 Personal history of transient ischemic attack (TIA), and cerebral infarction without residual deficits; Z95.5 Presence of coronary angioplasty implant and graft; Z90.710 Acquired absence of both cervix and uterus; Z96.649 Presence of unspecified artificial hip joint; W18.39XA Other fall on same level, initial encounter; Y93.89 Activity, other specified; Y92.89 Other specified places as the place of occurrence of the external cause; Y99.8 Other external cause status
CPT/HCPCS: 36415; 71010; 80048; 80076; 82553; 83690; 83735; 84484; 85027; 93005; 99285-25

== ENCOUNTER → 2017-10-22 | Outpatient (CLI) | payer MEDICARE, OTHER | END | disposition home or self-care (01) | LOC: US 07:18 | DX: M43.27 Fusion of spine, lumbosacral region (principal); R35.0 Frequency of micturition | CPT/HCPCS: 72100; 76857 ==

== ENCOUNTER 2018-06-08 10:56 | Inpatient (IN) | payer OTHER ==
[~2018-06-08] VITALS: Ht 167.6 cm; Wt 58.1 kg
[~2018-06-08 10:56] MED LIST changes: -AMLO2.5T PO; +AMLO2.5T3 PO; +HYDR-3164 PO
[2018-06-08] MEDS ORDERED: IV NORMAL SALINE 1000ML BAG 1,000 ML IV ONE (11:30)
--- NOTE | 2018-06-08 11:54 | RAD ---
CT Head without contrast 06/08/2018 11:34 AM Indication: Altered mental status Comparison: October 27, 2017, CT head Findings: Motion artifact mildly limits exam. No intracranial hemorrhage is seen. No evidence of acute territorial. infarct is seen. Note that CT is limited in sensitivity for acute ischemia. Consider MRI exam if there is clinical concern for acute ischemia. Similar age-related atrophic changes are noted. Similar-appearing patchy periventricular and inflammatory hypoattenuation which is nonspecific but most commonly relates to chronic small vessel disease. No abnormal extra axial fluid collection is identified. No mass effect or midline shift is seen. No acute osseous abnormalities are seen. Impression: 1. No acute intracranial process identified 2. Similar senescent changes including diffuse atrophic change, and evidence of chronic small vessel disease as described CT DOSING PQRS STATEMENT: One or more of the following individualized dose reduction techniques were utilized for this examination: 1. Automated exposure control 2. Adjustment of the mA and/or kV according to patient size 3. Use of iterative reconstruction technique Electronically signed by: Benjamin Raymond MD (06/08/2018 11:51 AM) [id number]
--- NOTE | 2018-06-08 12:10 | EKG ---
[facility] [address] [place] [address] Test Date: 2018-06-08 Test Time: 12:05:15 Pat Name: EFREN QUACH Department: Room: Gender: F Mathematical Physicist: IGNACIO : 1935 Requested By: KIRT FRENCH Order Number: [id number] Reading MD: Leon Hernandez MD Measurements Intervals [place] Rate: 93 P: 6 [place]: 128 QRS: -14 QRSD: 84 T: 125 QT: 386 QTc: 482 Interpretive Statements SINUS RHYTHM LEFTWARD AXIS QRS(T) CONTOUR ABNORMALITY CONSIDER ANTEROSEPTAL MYOCARDIAL DAMAGE ST & T ABNORMALITY, CONSIDER ANTERIOR ISCHEMIA OR LEFT VENTRICULAR STRAIN T ABNORMALITY IN LATERAL LEADS ABNORMAL ECG Electronically Signed On 06-08-2018 22:27:31 PATHOLOGY LAB TECHNICIAN by Loen Hernandez MD
[2018-06-08 12:55] LABS: BASO % 0 % (0-3); EOS % 0 % (0-3); HEMOGLOBIN 11.3 g/dL (12.0-15.5); LYMPH # 0.6 x10^3/uL (1.0-4.8); LYMPH % 4 % (24-48); MEAN CORPUSCULAR HEMOGLOBIN 29 pg (25-35); MEAN CORPUSCULAR HGB CONC 33 g/dL (31-37); MEAN CORPUSCULAR VOLUME 89 fL (79-100); MONO # 0.8 x10^3/uL (0.0-1.1); MONO % 6 % (0-9); NEUT % 91 % (31-73); PLATELET COUNT 105 x10^3/uL (140-400); RED BLOOD COUNT 3.94 x10^6/uL (3.50-5.40); RED CELL DISTRIBUTION WIDTH 14.9 % (11.5-14.5); WHITE BLOOD COUNT 15.5 x10^3/uL (4.0-11.0)
[2018-06-08 13:06] LABS: PROTHROMBIN TIME PATIENT 16.1 SEC (11.7-14.0)
--- NOTE | 2018-06-08 13:06 | RAD ---
Right ankle, 3 views, 06/08/2018: HISTORY: Fall, pain There is patchy bony demineralization. There is deformity of the distal tibial shaft compatible with an old healed fracture. Deformity of the tips of the medial and lateral malleolus are likely due to old trauma. There is degenerative change at the ankle joint. No definite acute fracture or dislocation is evident. There is moderate generalized soft tissue edema about the ankle. Right foot, 3 views, 06/08/2018: There are mild scattered degenerative changes. No acute fracture or dislocation is identified. Moderate diffuse soft tissue swelling is present. IMPRESSION: 1. Demineralization. 2. Old posttraumatic and degenerative changes. 3. No acute bony abnormality is detected. Portable chest, 06/08/2018: Comparison is made to a study from 10/27/2017. Coronary artery stents are present. The left ventricle is mildly prominent. There is calcific plaquing of the aorta. The pulmonary vascularity is normal. No pulmonary infiltrate is seen. There is no evidence of pneumothorax or pleural fluid. IMPRESSION: No acute cardiopulmonary abnormality is detected. Electronically signed by: Jeffery Cantrell MD (06/08/2018 1:03 PM) [facility]
[2018-06-08 13:12] LABS: ALBUMIN 2.8 g/dL (3.4-5.0); ALBUMIN/GLOBULIN RATIO 0.7 (1.0-1.7); CALCIUM 8.3 mg/dL (8.5-10.1); CREATININE 1.6 mg/dL (0.6-1.0); GFR 37.4; MAGNESIUM 1.7 mg/dL (1.8-2.4); TOTAL BILIRUBIN 1.7 mg/dL (0.2-1.0); TOTAL PROTEIN 7.1 g/dL (6.4-8.2)
[2018-06-08 13:19] LABS: POTASSIUM 2.8 mmol/L (3.5-5.1)
--- NOTE | 2018-06-08 13:24 | RAD ---
Right lower extremity venous doppler ultrasound Indication:RT LEG SWELLING . Right leg pain. Technique: Color Doppler, grayscale, and spectral waveform analysis is used to evaluate the right femoral and popliteal veins. Findings: No evidence of deep venous thrombosis. Normal response to augmentation, normal compressibility and normal phasicity is demonstrated. Visualized calf veins are patent. Impression: Negative for deep venous thrombosis Electronically signed by: Garo Ziegler MD (06/08/2018 1:20 PM) [facility]
[2018-06-08 13:30] LABS: % LYMPHS 2 % (24-48); % MONOS 1 % (0-10); % SEGS 97 % (35-66); ANISOCYTOSIS SLIGHT; PLT ESTIMATE DECREASED (ADEQUATE)
[2018-06-08] MEDS ORDERED: POTASSIUM CHLORIDE 20 MEQ/15 ML ORAL LIQUID. PO ONE (13:30)
[2018-06-08 13:41] LABS: BILIRUBIN,URINE SMALL (NEG); CLARITY,URINE CLOUDY; COLOR,URINE ORANGE; NITRITE,URINE NEGATIVE (NEG); PROTEIN,URINE 100 mg/dL (NEG-TRACE)
[2018-06-08 13:43] LABS: BACTERIA,URINE 0 /HPF (0-FEW); RBC,URINE 0 /HPF (0-2); SQUAMOUS EPITHELIAL CELL,UR OCC /LPF
[2018-06-08 13:44] LABS: HYALINE CASTS, URINE OCCASIONAL /HPF; WBC,URINE RARE /HPF (0-4)
[2018-06-08 13:58] LABS: BARBITURATES NEG (NEG); BENZODIAZEPINES NEG (NEG); CANNABINOIDS NEG (NEG); COCAINE NEG (NEG); METHADONE NEG (NEG); OPIATES NEG (NEG); PHENCYCLIDINE NEG (NEG)
[2018-06-08 13:59] LABS: AMPHETAMINE/METHAMPHETAMINE NEG (NEG)
--- NOTE | 2018-06-08 14:47 | PDOC1 ---
History and Physical Date of Admission Date of Admission DATE: 06/08/18 TIME: 14:46 Identification/Chief Complaint Chief Complaint altered mentation, weakness fall at home 2 weeks ago, poor intake today Past Medical History Past Medical History Past Medical History Past Medical History: Anxiety, Dementia, Depression, GERD, Hypertension, Stroke Past Surgical History: Hip Replacement, Hysterectomy Additional Past Surgical Histo: cardiac stents, back Alcohol Use: None Drug Use: None PAST MEDICAL HISTORY Cardiovascular: CAD, HTN, Hyperlipidemia CENTRAL NERVOUS SYSTEM: CVA, Dementia GI: GERD Musculoskeletal: Osteoarthritis PAST SURGICAL HISTORY Past Surgical History: Total hip replacement (bilateral), Hysterectomy, Other ( PCI/stent, lumbar fusion) FAMILY HISTORY Family History htn SOCIAL HISTORY Smoke: No ALCOHOL: none Drugs: None Lives: with Family Cardiovascular: CAD, HTN, Hyperlipidemia Pulmonary: No pertinent hx CENTRAL NERVOUS SYSTEM: CVA, Dementia GI: GERD Musculoskeletal: Osteoarthritis Past Surgical History Past Surgical History: Total hip replacement, Hysterectomy, Other Family History Family History: Hypertension Social History Smoke: No ALCOHOL: none Drugs: None Current Medications Current Medications Current Medications Sodium Chloride 1,000 ml @ 1,000 mls/hr 1X ONCE IV Last administered on at 13:27; Start 06/08/18 at 11:30; Stop 06/08/18 at 12:29; Status DC Potassium Chloride (KCl Oral Soln) 40 meq 1X ONCE PO Last administered on 06/08at 13:38; Start 06/08/18 at 13:30; Stop 06/08/18 at 13:31; Status DC Active Scripts Active Reported Ranitidine Hcl 150 Mg Capsule 150 Mg PO DAILY Amlodipine Besylate 2.5 Mg Tablet 2.5 Mg PO BID Namenda (Memantine Hcl) 10 Mg Tablet 1 Tab PO BID Flonase Allergy Relief (Fluticasone Propionate) 9.9 Ml [place].susp 2 Sprays NS DAILY NITROGLYCERIN SubLingual (Nitroglycerin) 0.4 Mg Tab.subl 0.4 Mg SL PRN Q5MIN PRN Omeprazole 40 Mg Capsule.dr 1 Cap PO DAILY Lisinopril 20 Mg Tablet 20 Mg PO DAILYWSUP Alprazolam 0.5 Mg Tablet 1 Tab PO BID Sucralfate 1 Gm/10 Ml Oral.susp 1 Gm PO TIDWMEALHC Toprol Xl (Metoprolol Succinate) 100 Mg Tab.er.24h 1 Tab PO DAILY Allergies Allergies: Coded Allergies: No Known Drug Allergies (Unverified , 12/30/16) ROS Review of System Review of Systems obtained from family very weak, daughter worried, not eating Constitutional: Denies fever or chills. [] Eyes: Denies change in visual acuity. [] HENT: Denies nasal congestion or sore throat. [] Respiratory: Denies cough or shortness of breath. [] Cardiovascular: Denies chest pain or edema. [] GI: Denies abdominal pain, nausea, vomiting, bloody stools or diarrhea. [] : Denies dysuria. [] Musculoskeletal: right ankle joint pain. [] Integument: right foot rash. [] Neurologic: Denies focal weakness or sensory changes. fell at home 2 weeks ago Endocrine: Denies polyuria or polydipsia. [] Lymphatic: Denies swollen glands. [] Psychiatric: Denies depression or anxiety. [] Limited historian due to underlying dementia. 14 pt ros otherwise neg PSYCHOLOGICAL ROS: YES: Disorientation, Memory difficulties Hematological and Lymphatic: YES: Blood Clots ENDOCRINE: No: Breast Changes, Galactorrhea, Hair Pattern Changes, Hot Flashes , Malaise/lethargy, Mood Swings, Palpitations, Polydipsia/polyuria, Skin Changes , Temperature Intolerance, Unexpected Weight Changes, Other Breast: No New/Changing Breast Lumps, No Nipple changes, No Nipple discharge, No Other Musculoskeletal: Yes Gait Disturbance Physical Exam Physical Exam HENT: Normocephalic, atraumatic, bilateral external ears normal, oropharynx dry , no oral exudates, . [] Eyes: PERRLA, EOMI, conjunctiva normal, no discharge. [] Neck: Normal range of motion, no tenderness, supple, no stridor. [] Cardiovascular:Heart rate regular rhythm, no murmur [] Lungs & Thorax: Bilateral breath sounds clear to auscultation [] Abdomen: Bowel sounds normal, soft, no tenderness, no masses, no pulsatile masses. [] Skin: Warm, dry, no erythema, no rash. [] Back: No tenderness, no CVA tenderness. [] Extremities: right ankle tenderness, no cyanosis, no clubbing, ROM intact, no edema. [] Neurologic: somnolent , no focal deficits noted. [] Psychologic: Affect flat [] General: Cooperative HEENT: Atraumatic, PERRLA Lungs: Clear to auscultation Breasts: Not examined Extremities: No cyanosis Neuro: Cranial nerves 3-12 NL Vitals Vitals Vital Signs Date Time Temp Pulse Resp B/P (MAP) Pulse Ox O2 Delivery O2 Flow Rate FiO2 06/08/18 11:18 99.6 104 20 116/60 (78) 96 Room Air 99.6 Labs Labs Laboratory Tests Test 06/08/18 11:07 06/08/18 12:45 06/08/18 13:30 Glucose (Fingerstick) 131 mg/dL (70-99) White Blood Count 15.5 x10^3/uL (4.0-11.0) Red Blood Count 3.94 x10^6/uL (3.50-5.40) Hemoglobin 11.3 g/dL (12.0-15.5) Hematocrit 35.0 % (36.0-47.0) Mean Corpuscular Volume 89 fL (79-100) Mean Corpuscular Hemoglobin 29 pg (25-35) Mean Corpuscular Hemoglobin Concent 33 g/dL (31-37) Red Cell Distribution Width 14.9 % (11.5-14.5) Platelet Count 105 x10^3/uL (140-400) Neutrophils (%) (Auto) 91 % (31-73) Lymphocytes (%) (Auto) 4 % (24-48) Monocytes (%) (Auto) 6 % (0-9) Eosinophils (%) (Auto) 0 % (0-3) Basophils (%) (Auto) 0 % (0-3) Neutrophils # (Auto) 14.0 x10^3uL (1.8-7.7) Lymphocytes # (Auto) 0.6 x10^3/uL (1.0-4.8) Monocytes # (Auto) 0.8 x10^3/uL (0.0-1.1) Eosinophils # (Auto) 0.0 x10^3/uL (0.0-0.7) Basophils # (Auto) 0.0 x10^3/uL (0.0-0.2) Segmented Neutrophils % 97 % (35-66) Lymphocytes % 2 % (24-48) Monocytes % 1 % (0-10) Platelet Estimate Decreased (ADEQUATE) Anisocytosis Slight Prothrombin Time 16.1 SEC (11.7-14.0) Prothromb Time International Ratio 1.4 (0.8-1.1) Sodium Level 142 mmol/L (136-145) Potassium Level 2.8 mmol/L (3.5-5.1) Chloride Level 99 mmol/L (98-107) Carbon Dioxide Level 29 mmol/L (21-32) Anion Gap 14 (6-14) Blood Urea Nitrogen 22 mg/dL (7-20) Creatinine 1.6 mg/dL (0.6-1.0) Estimated GFR (Cockcroft-Gault) 37.4 BUN/Creatinine Ratio 14 (6-20) Glucose Level 133 mg/dL (70-99) Calcium Level 8.3 mg/dL (8.5-10.1) Magnesium Level 1.7 mg/dL (1.8-2.4) Total Bilirubin 1.7 mg/dL (0.2-1.0) Aspartate Amino Transf (AST/SGOT) 34 U/L (15-37) Alanine Aminotransferase (ALT/SGPT) 29 U/L (14-59) Alkaline Phosphatase 97 U/L (46-116) Troponin I Quantitative < 0.017 ng/mL (0.000-0.055) GJ-Hbv-M-Type Natriuretic Peptide 443 pg/mL (0-449) Total Protein 7.1 g/dL (6.4-8.2) Albumin 2.8 g/dL (3.4-5.0) Albumin/Globulin Ratio 0.7 (1.0-1.7) Thyroid Stimulating Hormone (TSH) 3.521 uIU/mL (0.358-3.74) Urine Collection Type U cath Urine Color [place] Urine Clarity Cloudy Urine pH 6.0 Urine Specific [place] 1.025 Urine Protein 100 mg/dL (NEG-TRACE) Urine Glucose (UA) Negative mg/dL (NEG) Urine Ketones (Stick) Trace mg/dL (NEG) Urine Blood Moderate (NEG) Urine Nitrite Negative (NEG) Urine Bilirubin Small (NEG) Urine Urobilinogen Dipstick 1.0 mg/dL (0.2 mg/dL) Urine Leukocyte Esterase Small (NEG) Urine RBC 0 /HPF (0-2) Urine WBC Rare /HPF (0-4) Urine Squamous Epithelial Cells Occ /LPF Urine Bacteria 0 /HPF (0-FEW) Urine Hyaline Casts Occasional /HPF Urine Mucus Mod /LPF Urine Opiates Screen Neg (NEG) Urine Methadone Screen Neg (NEG) Urine Barbiturates Neg (NEG) Urine Phencyclidine Screen Neg (NEG) Urine Amphetamine/Methamphetamine Neg (NEG) Urine Benzodiazepines Screen Neg (NEG) Urine Cocaine Screen Neg (NEG) Urine Cannabinoids Screen Neg (NEG) Urine Ethyl Alcohol Neg (NEG) Laboratory Tests Test 06/08/18 11:07 06/08/18 12:45 06/08/18 13:30 Glucose (Fingerstick) 131 mg/dL (70-99) White Blood Count 15.5 x10^3/uL (4.0-11.0) Red Blood Count 3.94 x10^6/uL (3.50-5.40) Hemoglobin 11.3 g/dL (12.0-15.5) Hematocrit 35.0 % (36.0-47.0) Mean Corpuscular Volume 89 fL (79-100) Mean Corpuscular Hemoglobin 29 pg (25-35) Mean Corpuscular Hemoglobin Concent 33 g/dL (31-37) Red Cell Distribution Width 14.9 % (11.5-14.5) Platelet Count 105 x10^3/uL (140-400) Neutrophils (%) (Auto) 91 % (31-73) Lymphocytes (%) (Auto) 4 % (24-48) Monocytes (%) (Auto) 6 % (0-9) Eosinophils (%) (Auto) 0 % (0-3) Basophils (%) (Auto) 0 % (0-3) Neutrophils # (Auto) 14.0 x10^3uL (1.8-7.7) Lymphocytes # (Auto) 0.6 x10^3/uL (1.0-4.8) Monocytes # (Auto) 0.8 x10^3/uL (0.0-1.1) Eosinophils # (Auto) 0.0 x10^3/uL (0.0-0.7) Basophils # (Auto) 0.0 x10^3/uL (0.0-0.2) Segmented Neutrophils % 97 % (35-66) Lymphocytes % 2 % (24-48) Monocytes % 1 % (0-10) Platelet Estimate Decreased (ADEQUATE) Anisocytosis Slight Prothrombin Time 16.1 SEC (11.7-14.0) Prothromb Time International Ratio 1.4 (0.8-1.1) Sodium Level 142 mmol/L (136-145) Potassium Level 2.8 mmol/L (3.5-5.1) Chloride Level 99 mmol/L (98-107) Carbon Dioxide Level 29 mmol/L (21-32) Anion Gap 14 (6-14) Blood Urea Nitrogen 22 mg/dL (7-20) Creatinine 1.6 mg/dL (0.6-1.0) Estimated GFR (Cockcroft-Gault) 37.4 BUN/Creatinine Ratio 14 (6-20) Glucose Level 133 mg/dL (70-99) Calcium Level 8.3 mg/dL (8.5-10.1) Magnesium Level 1.7 mg/dL (1.8-2.4) Total Bilirubin 1.7 mg/dL (0.2-1.0) Aspartate Amino Transf (AST/SGOT) 34 U/L (15-37) Alanine Aminotransferase (ALT/SGPT) 29 U/L (14-59) Alkaline Phosphatase 97 U/L (46-116) Troponin I Quantitative < 0.017 ng/mL (0.000-0.055) SC-Vvq-G-Type Natriuretic Peptide 443 pg/mL (0-449) Total Protein 7.1 g/dL (6.4-8.2) Albumin 2.8 g/dL (3.4-5.0) Albumin/Globulin Ratio 0.7 (1.0-1.7) Thyroid Stimulating Hormone (TSH) 3.521 uIU/mL (0.358-3.74) Urine Collection Type U cath Urine Color [place] Urine Clarity Cloudy Urine pH 6.0 Urine Specific [place] 1.025 Urine Protein 100 mg/dL (NEG-TRACE) Urine Glucose (UA) Negative mg/dL (NEG) Urine Ketones (Stick) Trace mg/dL (NEG) Urine Blood Moderate (NEG) Urine Nitrite Negative (NEG) Urine Bilirubin Small (NEG) Urine Urobilinogen Dipstick 1.0 mg/dL (0.2 mg/dL) Urine Leukocyte Esterase Small (NEG) Urine RBC 0 /HPF (0-2) Urine WBC Rare /HPF (0-4) Urine Squamous Epithelial Cells Occ /LPF Urine Bacteria 0 /HPF (0-FEW) Urine Hyaline Casts Occasional /HPF Urine Mucus Mod /LPF Urine Opiates Screen Neg (NEG) Urine Methadone Screen Neg (NEG) Urine Barbiturates Neg (NEG) Urine Phencyclidine Screen Neg (NEG) Urine Amphetamine/Methamphetamine Neg (NEG) Urine Benzodiazepines Screen Neg (NEG) Urine Cocaine Screen Neg (NEG) Urine Cannabinoids Screen Neg (NEG) Urine Ethyl Alcohol Neg (NEG) Images Images Right ankle, 3 views, 06/08/2018: HISTORY: Fall, pain There is patchy bony demineralization. There is deformity of the distal tibial shaft compatible with an old healed fracture. Deformity of the tips of the medial and lateral malleolus are likely due to old trauma. There is degenerative change at the ankle joint. No definite acute fracture or dislocation is evident. There is moderate generalized soft tissue edema about the ankle. Right foot, 3 views, 06/08/2018: There are mild scattered degenerative changes. No acute fracture or dislocation is identified. Moderate diffuse soft tissue swelling is present. IMPRESSION: 1. Demineralization. 2. Old posttraumatic and degenerative changes. 3. No acute bony abnormality is detected. Portable chest, 06/08/2018: Comparison is made to a study from 10/27/2017. Coronary artery stents are present. The left ventricle is mildly prominent. There is calcific plaquing of the aorta. The pulmonary vascularity is normal. No pulmonary infiltrate is seen. There is no evidence of pneumothorax or pleural fluid. IMPRESSION: No acute cardiopulmonary abnormality is detected. Electronically signed by: Jeffery Cantrell MD (06/08/2018 1:03 PM) [facility] STATUS: REG ER ORD. PHYSICIAN: KIRT FRENCH APRN REASON: swelling PROCEDURE: VENOUS LOWER EXTREMITY RIGHT Right lower extremity venous doppler ultrasound Indication:RT LEG SWELLING . Right leg pain. Technique: Color Doppler, grayscale, and spectral waveform analysis is used to evaluate the right femoral and popliteal veins. Findings: No evidence of deep venous thrombosis. Normal response to augmentation, normal compressibility and normal phasicity is demonstrated. Visualized calf veins are patent. Impression: Negative for deep venous thrombosis Electronically signed by: Garo Ziegler MD (06/08/2018 1:20 PM) [facility] PROCEDURE: ANKLE RIGHT 3V Right ankle, 3 views, 06/08/2018: HISTORY: Fall, pain There is patchy bony demineralization. There is deformity of the distal tibial shaft compatible with an old healed fracture. Deformity of the tips of the medial and lateral malleolus are likely due to old trauma. There is degenerative change at the ankle joint. No definite acute fracture or dislocation is evident. There is moderate generalized soft tissue edema about the ankle. Right foot, 3 views, 06/08/2018: There are mild scattered degenerative changes. No acute fracture or dislocation is identified. Moderate diffuse soft tissue swelling is present. IMPRESSION: 1. Demineralization. 2. Old posttraumatic and degenerative changes. 3. No acute bony abnormality is detected. Indication: Altered mental status Comparison: October 27, 2017, CT head Findings: Motion artifact mildly limits exam. No intracranial hemorrhage is seen. No evidence of acute territorial. infarct is seen. Note that CT is limited in sensitivity for acute ischemia. Consider MRI exam if there is clinical concern for acute ischemia. Similar age-related atrophic changes are noted. Similar-appearing patchy periventricular and inflammatory hypoattenuation which is nonspecific but most commonly relates to chronic small vessel disease. No abnormal extra axial fluid collection is identified. No mass effect or midline shift is seen. No acute osseous abnormalities are seen. Impression: 1. No acute intracranial process identified 2. Similar senescent changes including diffuse atrophic change, and evidence of chronic small vessel disease as described CT DOSING PQRS STATEMENT: One or more of the following individualized dose reduction techniques were utilized for this examination: 1. Automated exposure control 2. Adjustment of the mA and/or kV according to patient size 3. Use of iterative reconstruction technique Electronically signed by: Benjamin Kearney MD (06/08/2018 11:51 AM) [facility] DICTATED and SIGNED BY: BENJAMIN KEARNEY MD DATE: 06/08/18 1145 VTE Prophylaxis Ordered VTE Prophylaxis Devices: Yes VTE Pharmacological Prophylaxi: Yes Assessment/Plan Assessment/Plan ASSESSMENT 1. Abnormal EKG: low K and mg, . 2. Diarrhea/leukocytosis: UTI 3 mechanical fall GAIT instability 4. MALACHI: poor intake lately 5. Metabolic encephalopathy with underlying dementia 6. HX of CAD: past stent, [facility] 7. Prior DVT to LLE 6 MO [employer] 8. Malnutrition plan 1. Correct K and Mg. 2. IV hydrate 3. cardiology consult 4. neurology consult 5/ tele 6. iv mg 1 gm x 1 tonight 7. PT/OT 8. Elevate, ice right ankle 9. venous doppler left leg tonight 10. dvt prophylaxis. 11. iv antibiotics, rocephin for cellulitis right ankle and uti 12. blood and urine cultures AUGUSTA ARELLANO MD Jun 08, 2018 14:47
--- NOTE | 2018-06-08 15:32 | PDOC2 ---
ISAURA TRENT COMMUNITY ENGAGEMENT SPECIALIST 06/08/18 1532: CARDIAC CONSULT DATE OF CONSULT Date of Consult DATE: 06/08/18 TIME: 15:30 REASON FOR CONSULT Reason for Consult: abn EKG REFERRING PHYSICIAN Referring Physician: Husam SOURCE Source: Chart review, Patient HISTORY OF PRESENT ILLNESS HISTORY OF PRESENT ILLNESS This is an 82 yo female admitted for complains of weakness, anorexia, incontinence. Daughter lives with pt and noted that pt has been increasingly getting weak. more confused, poor appetite, poor hydration and her urine has been foul smelling. She actually fell at the bathroom over a week ago but no passing out and no noted trauma. Also has been having intermittent episodes of watery diarrhea. Her right leg has been somewhat tender and sweollen but at the same time she has not been able to fully bear wt on her right leg since it hurts according to her daughter. SHe has not been complaining of any SOA or chest pain. She does follow up with cardiology. PAST MEDICAL HISTORY Past Medical History Cardiovascular: CAD, HTN, Hyperlipidemia CENTRAL NERVOUS SYSTEM: CVA, Dementia GI: GERD Musculoskeletal: Osteoarthritis Neurology: dementia PAST SURGICAL HISTORY Past Surgical History Total hip replacement (bilateral), Hysterectomy, Other (PCI/stent, lumbar fusion ) FAMILY HISTORY Family History noncontributory SOCIAL HISTORY Smoke: No ALCOHOL: none Drugs: None Lives: with Family CURRENT MEDICATIONS CURRENT MEDICATIONS Current Medications Medications (Trade) Dose Ordered Sig/Arnoldo Route PRN Reason Start Time Stop Time Status Last Admin Dose Admin Sodium Chloride 1,000 ml @ 1,000 mls/hr 1X ONCE IV 06/08/18 11:30 06/08/18 12:29 DC 06/08/18 13:27 Potassium Chloride (KCl Oral Soln) 40 meq 1X ONCE PO 06/08/18 13:30 06/08/18 13:31 DC 06/08/18 13:38 ALLERGIES ALLERGIES: Coded Allergies: No Known Drug Allergies (Unverified , 12/30/16) ROS Review of System unreliable PHYSICAL EXAM General: Alert, Cooperative, No acute distress HEENT: Atraumatic, Mucous membr. moist/pink Lungs: Clear to auscultation, Normal air movement Heart: Regular rate (SR), Normal S1, Normal S2, No murmurs Abdomen: Soft, No tenderness Extremities: No cyanosis, No edema, Other (no swelling per se but RLE diameter bigger than LLE) Skin: No breakdown Neuro: Normal speech, Sensation intact Psych/Mental Status: Other MUSCULOSKELETAL: Osteoarthritic changes both hands VITALS VITALS Vital Signs Date Time Temp Pulse Resp B/P (MAP) Pulse Ox O2 Delivery O2 Flow Rate FiO2 06/08/18 11:18 99.6 104 20 116/60 (78) 96 Room Air 99.6 LABS Lab: Laboratory Tests Test 06/08/18 11:07 06/08/18 12:45 06/08/18 13:30 Glucose (Fingerstick) 131 mg/dL (70-99) White Blood Count 15.5 x10^3/uL (4.0-11.0) Red Blood Count 3.94 x10^6/uL (3.50-5.40) Hemoglobin 11.3 g/dL (12.0-15.5) Hematocrit 35.0 % (36.0-47.0) Mean Corpuscular Volume 89 fL (79-100) Mean Corpuscular Hemoglobin 29 pg (25-35) Mean Corpuscular Hemoglobin Concent 33 g/dL (31-37) Red Cell Distribution Width 14.9 % (11.5-14.5) Platelet Count 105 x10^3/uL (140-400) Neutrophils (%) (Auto) 91 % (31-73) Lymphocytes (%) (Auto) 4 % (24-48) Monocytes (%) (Auto) 6 % (0-9) Eosinophils (%) (Auto) 0 % (0-3) Basophils (%) (Auto) 0 % (0-3) Neutrophils # (Auto) 14.0 x10^3uL (1.8-7.7) Lymphocytes # (Auto) 0.6 x10^3/uL (1.0-4.8) Monocytes # (Auto) 0.8 x10^3/uL (0.0-1.1) Eosinophils # (Auto) 0.0 x10^3/uL (0.0-0.7) Basophils # (Auto) 0.0 x10^3/uL (0.0-0.2) Segmented Neutrophils % 97 % (35-66) Lymphocytes % 2 % (24-48) Monocytes % 1 % (0-10) Platelet Estimate Decreased (ADEQUATE) Anisocytosis Slight Prothrombin Time 16.1 SEC (11.7-14.0) Prothromb Time International Ratio 1.4 (0.8-1.1) Sodium Level 142 mmol/L (136-145) Potassium Level 2.8 mmol/L (3.5-5.1) Chloride Level 99 mmol/L (98-107) Carbon Dioxide Level 29 mmol/L (21-32) Anion Gap 14 (6-14) Blood Urea Nitrogen 22 mg/dL (7-20) Creatinine 1.6 mg/dL (0.6-1.0) Estimated GFR (Cockcroft-Gault) 37.4 BUN/Creatinine Ratio 14 (6-20) Glucose Level 133 mg/dL (70-99) Calcium Level 8.3 mg/dL (8.5-10.1) Magnesium Level 1.7 mg/dL (1.8-2.4) Total Bilirubin 1.7 mg/dL (0.2-1.0) Aspartate Amino Transf (AST/SGOT) 34 U/L (15-37) Alanine Aminotransferase (ALT/SGPT) 29 U/L (14-59) Alkaline Phosphatase 97 U/L (46-116) Troponin I Quantitative < 0.017 ng/mL (0.000-0.055) HS-Elp-U-Type Natriuretic Peptide 443 pg/mL (0-449) Total Protein 7.1 g/dL (6.4-8.2) Albumin 2.8 g/dL (3.4-5.0) Albumin/Globulin Ratio 0.7 (1.0-1.7) Thyroid Stimulating Hormone (TSH) 3.521 uIU/mL (0.358-3.74) Urine Collection Type U cath Urine Color [place] Urine Clarity Cloudy Urine pH 6.0 Urine Specific [place] 1.025 Urine Protein 100 mg/dL (NEG-TRACE) Urine Glucose (UA) Negative mg/dL (NEG) Urine Ketones (Stick) Trace mg/dL (NEG) Urine Blood Moderate (NEG) Urine Nitrite Negative (NEG) Urine Bilirubin Small (NEG) Urine Urobilinogen Dipstick 1.0 mg/dL (0.2 mg/dL) Urine Leukocyte Esterase Small (NEG) Urine RBC 0 /HPF (0-2) Urine WBC Rare /HPF (0-4) Urine Squamous Epithelial Cells Occ /LPF Urine Bacteria 0 /HPF (0-FEW) Urine Hyaline Casts Occasional /HPF Urine Mucus Mod /LPF Urine Opiates Screen Neg (NEG) Urine Methadone Screen Neg (NEG) Urine Barbiturates Neg (NEG) Urine Phencyclidine Screen Neg (NEG) Urine Amphetamine/Methamphetamine Neg (NEG) Urine Benzodiazepines Screen Neg (NEG) Urine Cocaine Screen Neg (NEG) Urine Cannabinoids Screen Neg (NEG) Urine Ethyl Alcohol Neg (NEG) ASSESSMENT/PLAN ASSESSMENT/PLAN 1. Abnormal EKG: due to low K and mg, no cardiac symptoms. 2. Diarrhea/leukocytosis: UTI? urine foul 3. Nontraumatic mechanical fall 4. MALACHI: poor intake lately 5. Metabolic encephalopathy with underlying dementia 6. HX of CAD: past stent, follow with [facility]ology 7. Prior DVT to LLE 6 months ago with coumadin 4 months, presently has left leg pain Recommendations 1. Correct K and Mg. IV hydrate. 2. Repeat EKG once lyte corrected. 3. Consider doppler to LLE as well. Negative to RLE. Defer to PCP KORI REED MD 06/08/180: CARDIAC CONSULT ASSESSMENT/PLAN ASSESSMENT/PLAN Pt. seen and examined. Agree with above TECHNICAL PROJECT LEAD note. EKG changes in the setting of hypokalemia. Normal echo in 2018. No clear cardiac symptoms. Supportive care from CV standpoint Repeat EKG in a.m to ensure changes have resolved. Thanks. Will f/u after a.m. EKG ISAURA TRENT APRN Jun 08, 2018 15:32 KORI REED MD Jun 08, 2018 22:30
[2018-06-08] MEDS ORDERED: ONDANSETRON PF 4 MG/2 ML VIAL. IV PRN (16:00)
[2018-06-08] MEDS ORDERED: ACETAMINOPHEN 325 MG TABLET. PO PRN (16:00)
--- NOTE | 2018-06-08 16:12 | PHYS DOC ---
Past Medical History Past Medical History: Anxiety, Dementia, Depression, GERD, Hypertension, Stroke Past Surgical History: Hip Replacement, Hysterectomy Additional Past Surgical Histo: cardiac stents, back Alcohol Use: None Drug Use: None Adult General Chief Complaint Chief Complaint: LOWER EXT PAIN HPI HPI Patient is a 82 year old female with a history of hypertension, dementia, stroke, who presents today with several family members to be evaluated for multiple complaints. Per family members patient has been weak for the last 3 weeks, they state patient has not been acting like herself for 3 weeks. They state patient has not been eating or drinking well. They state patient has difficulty ambulating and has been complaining about right foot pain. They state patient fell down the Thursday after Thanksgiving, she was evaluated and they could not find anything broken on her foot. They state patient has difficulty performing some of the activities of daily living she used to do at home. One family member stated patient is being worked up for Alzheimer's and has an appointment with neurologist at on Thursday. PCP Dr. Alston Review of Systems Review of Systems Constitutional: Family denies HENT: JAMIE Respiratory: JAMIE Cardiovascular: JAMIE GI: JAMIE : JAMIE Musculoskeletal: Family reports right foot pain. Denies back pain or joint pain [] Integument: Denies rash or skin lesions [] Neurologic: Family reports AMS and weakness. Denies headache, All other systems were reviewed and found to be within normal limits, except as documented in this note. Current Medications Current Medications Current Medications Medications (Trade) Dose Ordered Sig/Arnoldo Start Time Stop Time Status Last Admin Dose Admin Potassium Chloride (KCl Oral Soln) 40 meq 1X ONCE 06/08/18 13:30 06/08/18 13:31 DC 06/08/18 13:38 40 MEQ Sodium Chloride 1,000 ml @ 1,000 mls/hr 1X ONCE 06/08/18 11:30 06/08/18 12:29 DC 06/08/18 13:27 1,000 MLS/HR Allergies Allergies Allergies Coded Allergies Type Severity Reaction Last Updated Verified No Known Drug Allergies 12/30/16 No Physical Exam Physical Exam Constitutional: Well developed, well nourished, no acute distress, non-toxic appearance. [] HENT: Normocephalic, atraumatic, bilateral external ears normal, oropharynx moist, no oral exudates, nose normal. [] Eyes: PERRLA, EOMI, conjunctiva normal, no discharge. [] Neck: Normal range of motion, no tenderness, supple, no stridor. [] Cardiovascular:Heart rate regular rhythm, Lungs & Thorax: Bilateral breath sounds clear to auscultation [] Abdomen: Bowel sounds normal, soft, no tenderness, no masses, no pulsatile masses. [] Skin: Warm, dry, no erythema, no rash. [] Back: No tenderness, no CVA tenderness. [] Extremities: Right dorsal foot with bruising approximately 4 x 5 cm, lateral foot also has an area of bruising approximately 7 x 5 cm. No warmth to the area. Slight tenderness over the area. +2 right pedal pulse. Bilateral lower extremities with +1 edema. Neurologic: Alert and oriented X 1, normal motor function, normal sensory function, no focal deficits noted. [] Psychologic: flat affect Current Patient Data Vital Signs Vital Signs Date Time Temp Pulse Resp B/P (MAP) Pulse Ox O2 Delivery O2 Flow Rate FiO2 06/08/18 11:18 99.6 104 20 116/60 (78) 96 Room Air 99.6 Lab Values Laboratory Tests Test 06/08/18 11:07 06/08/18 12:45 06/08/18 13:30 Glucose (Fingerstick) 131 mg/dL (70-99) H White Blood Count 15.5 x10^3/uL (4.0-11.0) H Red Blood Count 3.94 x10^6/uL (3.50-5.40) Hemoglobin 11.3 g/dL (12.0-15.5) L Hematocrit 35.0 % (36.0-47.0) L Mean Corpuscular Volume 89 fL (79-100) Mean Corpuscular Hemoglobin 29 pg (25-35) Mean Corpuscular Hemoglobin Concent 33 g/dL (31-37) Red Cell Distribution Width 14.9 % (11.5-14.5) H Platelet Count 105 x10^3/uL (140-400) L Neutrophils (%) (Auto) 91 % (31-73) H Lymphocytes (%) (Auto) 4 % (24-48) L Monocytes (%) (Auto) 6 % (0-9) Eosinophils (%) (Auto) 0 % (0-3) Basophils (%) (Auto) 0 % (0-3) Neutrophils # (Auto) 14.0 x10^3uL (1.8-7.7) H Lymphocytes # (Auto) 0.6 x10^3/uL (1.0-4.8) L Monocytes # (Auto) 0.8 x10^3/uL (0.0-1.1) Eosinophils # (Auto) 0.0 x10^3/uL (0.0-0.7) Basophils # (Auto) 0.0 x10^3/uL (0.0-0.2) Segmented Neutrophils % 97 % (35-66) H Lymphocytes % 2 % (24-48) L Monocytes % 1 % (0-10) Platelet Estimate Decreased (ADEQUATE) Anisocytosis Slight Prothrombin Time 16.1 SEC (11.7-14.0) H Prothrombin Time INR 1.4 (0.8-1.1) H Sodium Level 142 mmol/L (136-145) Potassium Level 2.8 mmol/L (3.5-5.1) *L Chloride Level 99 mmol/L (98-107) Carbon Dioxide Level 29 mmol/L (21-32) Anion Gap 14 (6-14) Blood Urea Nitrogen 22 mg/dL (7-20) H Creatinine 1.6 mg/dL (0.6-1.0) H Estimated GFR (Cockcroft-Gault) 37.4 BUN/Creatinine Ratio 14 (6-20) Glucose Level 133 mg/dL (70-99) H Calcium Level 8.3 mg/dL (8.5-10.1) L Magnesium Level 1.7 mg/dL (1.8-2.4) L Total Bilirubin 1.7 mg/dL (0.2-1.0) H Aspartate Amino Transferase (AST) 34 U/L (15-37) Alanine Aminotransferase (ALT) 29 U/L (14-59) Alkaline Phosphatase 97 U/L (46-116) Troponin I Quantitative < 0.017 ng/mL (0.000-0.055) IU-Pcz-D-Type Natriuretic Peptide 443 pg/mL (0-449) Total Protein 7.1 g/dL (6.4-8.2) Albumin 2.8 g/dL (3.4-5.0) L Albumin/Globulin Ratio 0.7 (1.0-1.7) L Thyroid Stimulating Hormone (TSH) 3.521 uIU/mL (0.358-3.74) Urine Collection Type U cath Urine Color [place] Urine Clarity Cloudy Urine pH 6.0 Urine Specific [place] 1.025 Urine Protein 100 mg/dL (NEG-TRACE) Urine Glucose (UA) Negative mg/dL (NEG) Urine Ketones (Stick) Trace mg/dL (NEG) Urine Blood Moderate (NEG) Urine Nitrite Negative (NEG) Urine Bilirubin Small (NEG) Urine Urobilinogen Dipstick 1.0 mg/dL (0.2 mg/dL) Urine Leukocyte Esterase Small (NEG) Urine RBC 0 /HPF (0-2) Urine WBC Rare /HPF (0-4) Urine Squamous Epithelial Cells Occ /LPF Urine Bacteria 0 /HPF (0-FEW) Urine Hyaline Casts Occasional /HPF Urine Mucus Mod /LPF Urine Opiates Screen Neg (NEG) Urine Methadone Screen Neg (NEG) Urine Barbiturates Neg (NEG) Urine Phencyclidine Screen Neg (NEG) Urine Amphetamine/Methamphetamine Neg (NEG) Urine Benzodiazepines Screen Neg (NEG) Urine Cocaine Screen Neg (NEG) Urine Cannabinoids Screen Neg (NEG) Urine Ethyl Alcohol Neg (NEG) Laboratory Tests 06/08/18 12:45 Laboratory Tests 06/08/18 12:45 EKG EKG Interpreted by Dr. Fontaine sinus rhythm, inverted T waves noted in V4, V2, V5 , V3. Heart rate 93 no STEMI Radiology/Procedures Radiology/Procedures []PROCEDURE: CT HEAD WO CONTRAST CT Head without contrast 06/08/2018 11:34 AM Indication: Altered mental status Comparison: October 27, 2017, CT head Findings: Motion artifact mildly limits exam. No intracranial hemorrhage is seen. No evidence of acute territorial. infarct is seen. Note that CT is limited in sensitivity for acute ischemia. Consider MRI exam if there is clinical concern for acute ischemia. Similar age-related atrophic changes are noted. Similar-appearing patchy periventricular and inflammatory hypoattenuation which is nonspecific but most commonly relates to chronic small vessel disease. No abnormal extra axial fluid collection is identified. No mass effect or midline shift is seen. No acute osseous abnormalities are seen. Impression: 1. No acute intracranial process identified 2. Similar senescent changes including diffuse atrophic change, and evidence of chronic small vessel disease as described CT DOSING PQRS STATEMENT: One or more of the following individualized dose reduction techniques were utilized for this examination: 1. Automated exposure control 2. Adjustment of the mA and/or kV according to patient size 3. Use of iterative reconstruction technique Electronically signed by: Benjamin Kearney MD (06/08/2018 11:51 AM) [id number] DICTATED and SIGNED BY: BENJAMIN KEARNEY MD DATE: 06/08/18 1145 Course & Med Decision Making Course & Med Decision Making Pertinent Labs and Imaging studies reviewed. (See chart for details) This is a 82-year-old female patient presenting today from home to be evaluated for multiple complaints including generalized weakness, altered mental status, right foot pain, see history of present illness for full patient is alert and oriented 1, has history of dementia per documentation on previous charts. Vitals on arrival to the ED temperature 99.6 heart rate 104 O2 sats 96% on room air respiration 20 room air blood pressure 116/20. Chest x-ray interpreted by radiologist is negative for any acute findings, CT of the head was negative for any acute findings, right foot and right ankle x- rays interpreted by radiologist are negative for any acute findings. Venous Doppler of the right lower extremity is negative for any acute findings. EKG noted for inverted T waves. Cardiology was consulted. Konstantin SALES RECEPTIONIST came and evaluated patient in the ED CBC with WBC of 15.5. CMP with potassium of 2.8, patient was given oral potassium replacement as well as IV fluids with 20 mEq of potassium as maintenance fluid. Creatinine 1.6, BUN 22 unknown if this is new or old creatinine levels, IV fluids were ordered. Urine analysis is noted for UTI. Patient was started on Rocephin. Spoke with Dr. Perez who accepted patient for admission Dragon Disclaimer Dragon Disclaimer This electronic medical record was generated, in whole or in part, using a voice recognition dictation system. Departure Departure Impression: Primary Impression: Altered mental status Additional Impressions: Hypokalemia Generalized weakness Right foot pain Fall Acute on chronic renal failure Disposition: 09 ADMITTED INPATIENT Condition: STABLE Referrals: LASHANDA PARKINSON MD (PCP) Problem Qualifiers Primary Impression: Altered mental status Altered mental status type: unspecified Qualified Codes: R41.82 - Altered mental status, unspecified Additional Impressions: Fall Encounter type: subsequent encounter Qualified Codes: W19.XXXD - Unspecified fall, subsequent encounter Acute on chronic renal failure Acute renal failure type: unspecified Chronic kidney disease stage: unspecified stage Qualified Codes: N17.9 - Acute kidney failure, unspecified; N18.9 - Chronic kidney disease, unspecified KIRT FRENCH APRN Jun 08, 2018 16:12
[2018-06-08] MEDS: IV NORMAL SALINE 1000ML BAG 1,000 ML IV SCH (16:30)
[2018-06-08] MEDS ORDERED: cefTRIAXone IV Push 1 GM VIAL. IVP ONE (16:30)
[2018-06-08] MEDS ORDERED: fentaNYL PF VIAL 100 MCG/2 ML VIAL IV PRN (16:30)
[2018-06-08] MEDS ORDERED: MAGNESIUM SULFATE 1GM 100 ML IV ONE (16:30)
[2018-06-08] MEDS: fentaNYL PF VIAL 100 MCG/2 ML VIAL IV PRN (16:37)
[2018-06-08] MEDS ORDERED: MAGNESIUM SULFATE 2GM 50 ML IV ONE (17:00)
[2018-06-08] MEDS ORDERED: NITROGLYCERIN SUBLINGUAL 0.4 MG BOTTLE OF 25. SL PRN (17:15)
[2018-06-08] MEDS: SUCRALFATE 1 GM TABLET. PO SCH ×2 (17:30→21:33)
[2018-06-08 19:12] VITALS: BP 142/61
--- NOTE | 2018-06-08 20:29 | PDOC2 ---
NEUROLOGY CONSULT Date of Admission Date of Admission DATE: 06/08/18 TIME: 20:10 Reason for Consult Reason for Consult: IMPRESSION: Metabolic encephalopathy. Generalized weakness x 3 weeks. LE pain. Leukocytosis. Fever. Hypokalemia, K 2.8. HTN. CAD s/p stent. Renal failure. Dementia? RECOMMENDATIONS/PLAN: EEG Brain MRI w/o contrast. Lab: see orders. ASA 81 mg daily. Correct electrolytes imbalances. Treat medical diseases. HISTORY OF THE PRESENT ILLNESS: 82-y-old AA female patient with above medical diseases has been having symptoms of generalized weakness for about 3 weeks difficult for physical activities. Her family also noted her mental status changes not acting like herself. She complained pain in her bilateral LE and left hip area. PAST MEDICAL HISTORY Past Medical History Cardiovascular: CAD, HTN, Hyperlipidemia CENTRAL NERVOUS SYSTEM: CVA, Dementia GI: GERD Musculoskeletal: Osteoarthritis Neurology: dementia PAST SURGICAL HISTORY Total hip replacement (bilateral), Hysterectomy, Other (PCI/stent, lumbar fusion ) FAMILY HISTORY Noncontributory. SOCIAL HISTORY Smoke: No ALCOHOL: none Drugs: None Lives: with Family ALLERGY: NKDA MEDICATIONS: Refer to MAR REVIEW OF SYSTEMS: Constitutional: No cachexia. Head: No traumatic brain or head injury. Skin: No edema, or rash. Ear: No infection. Eyes: No vision loss or color blindness. Nose: No bleeding or purulent discharges. Hearing: Hearing decrease. Neck: No injury. Breast: No history of cancer, masses,or discharges. Cardiac: CAD, s/p stent. HTN. Pulmonary: No COPD. GI: No GI ulcer, GI bleeding. Urinary/genital: UTI. Endocrinologic: No cousin face, craniofacial dysmorphism, polydactyly. Skeletomuscular: Generalized weakness. Neurological: see HP. Psychiatric: Denies drug use/abuse. Otherwise, not [id number] review of systems. PHYSICAL EXAMINATION: General appearance is in subacute distress. HEENT: Normocephalic and nontraumatic. Eyes, nose, ears, and throat are unremarkable. Neck is supple. No lymphadenopathy. No crepitus. Cardiovascular: S1, S2, regular rate and rhythm. Pulmonary: Clear to auscultation bilaterally. Abdomen: Bowel sounds are positive. Abdomen is soft, nontender, and nondistended. Extremities: No rash, lesions. No restriction of range of motion NEUROLOGICAL EXAMINATION: Awake. Not oriented to time, place and person. PERRL. EOMI. CN: no focal findings. Muscle tone: within normal. Muscle strength: 4UE, not able to access LE due to pain DTR: 2 UE, 1 at knee. Plantar reflex: Neutral response bilaterally Gait: not examined in bed. Sensory exam: no abnormal findings. No cerebellar signs elicited. F-T-N test performed due to unable to follow commands. Current Medications Current Medications Current Medications Sodium Chloride 1,000 ml @ 1,000 mls/hr 1X ONCE IV Last administered on at 13:27; Start 06/08/18 at 11:30; Stop 06/08/18 at 12:29; Status DC Potassium Chloride (KCl Oral Soln) 40 meq 1X ONCE PO Last administered on 06/08at 13:38; Start 06/08/18 at 13:30; Stop 06/08/18 at 13:31; Status DC Ondansetron HCl (Zofran) 4 mg PRN Q8HRS PRN IV NAUSEA/VOMITING; Start 06/08/18 at 16:00; Stop 06/09/18 at 15:59 Acetaminophen (Tylenol) 650 mg PRN Q4HRS PRN PO FEVER; Start 06/08/18 at 16:00 ; Stop 06/09/18 at 15:59 Potassium Chloride/Sodium Chloride 1,000 ml @ 75 mls/hr 1X ONCE IV Last administered on 06/08/18at 16:38; Start 06/08/18 at 16:00; Stop 06/09/18 at 05:19 Ceftriaxone Sodium 50 ml @ 100 mls/hr 1X ONCE IV ; Start 06/08/18 at 16:15; Stop 06/08/18 at 16:44; Status UNV Ceftriaxone Sodium (Rocephin) 1 gm 1X ONCE IVP Last administered on 06/08/18at 16:37; Start 06/08/18 at 16:30; Stop 06/08/18 at 16:31; Status DC Magnesium Sulfate 50 ml @ 25 mls/hr 1X ONCE IV Last administered on 06/08/18at 17:03; Start 06/08/18 at 17:00; Stop 06/08/18 at 18:59; Status DC Ceftriaxone Sodium (Rocephin) 1 gm Q24H IVP ; Start 06/09/18 at 16:30 Sodium Chloride 1,000 ml @ 85 mls/hr [id number] IV ; Start 06/08/18 at 16:30 Fentanyl Citrate (Fentanyl 2ml Vial) 25 mcg PRN Q3HRS PRN IV PAIN; Start at 16:30 Fentanyl Citrate (Fentanyl 2ml Vial) 50 mcg PRN Q3HRS PRN IV PAIN Last administered on 06/08/18at 16:37; Start 06/08/18 at 16:30 Magnesium Sulfate/ Dextrose 100 ml @ 100 mls/hr 1X ONCE IV ; Start 06/08/18 at 16:30; Stop 06/08/18 at 17:29; Status UNV Lisinopril (Prinivil) 20 mg DAILYWSUP PO ; Start 06/09/18 at 17:00 Metoprolol Succinate (Toprol Xl) 100 mg DAILY PO ; Start 06/09/18 at 09:00 Nitroglycerin (Nitrostat) 0.4 mg PRN Q5MIN PRN SL CHEST PAIN; Start 06/08/18 at 17:15 Amlodipine Besylate (Norvasc) 2.5 mg BID PO ; Start 06/08/18 at 21:00 Fluticasone Propionate (Flonase) 2 spray DAILY NS ; Start 06/09/18 at 09:00 Memantine (Namenda) 10 mg BID PO ; Start 06/08/18 at 21:00 Pantoprazole Sodium (Protonix) 40 mg DAILYAC PO ; Start 06/09/18 at 07:30 Non-Formulary Medication (Ranitidine Hcl ) 150 mg DAILY PO ; Start 06/09/18 at 09:00; Status UNV Sucralfate (Carafate) 1 gm TIDWMEALHC PO ; Start 06/08/18 at 17:30 Enoxaparin Sodium (Lovenox 30mg Syringe) 30 mg Q24H SQ ; Start 06/08/18 at 21:00 Active Scripts Active Reported Ranitidine Hcl 150 Mg Capsule 150 Mg PO DAILY Amlodipine Besylate 2.5 Mg Tablet 2.5 Mg PO BID Namenda (Memantine Hcl) 10 Mg Tablet 1 Tab PO BID Flonase Allergy Relief (Fluticasone Propionate) 9.9 Ml [place].susp 2 Sprays NS DAILY NITROGLYCERIN SubLingual (Nitroglycerin) 0.4 Mg Tab.subl 0.4 Mg SL PRN Q5MIN PRN Omeprazole 40 Mg Capsule.dr 1 Cap PO DAILY Lisinopril 20 Mg Tablet 20 Mg PO DAILYWSUP Alprazolam 0.5 Mg Tablet 1 Tab PO BID Sucralfate 1 Gm/10 Ml Oral.susp 1 Gm PO TIDWMEALHC Toprol Xl (Metoprolol Succinate) 100 Mg Tab.er.24h 1 Tab PO DAILY Allergies Allergies: Allergies Coded Allergies Type Severity Reaction Last Updated Verified No Known Drug Allergies 12/30/16 No ROS Review of System The patient denies any associated fevers, chills, headache, ear pain, rhinorrhea , sore throat, stiff neck, productive cough, chest pain, shortness of breath, back or flank pain, abdominal pain, nausea, vomiting, diarrhea, constipation, dysuria, rash, numbness, weakness, tingling, incontinence, difficulty ambulating, or diaphoresis. Physical Exam Physical Exam General: Well developed, well nourished, no acute distress, well appearing HEENT: Pupils equally round and reactive to light, EOMI, no discharge, normal conjunctiva Neck: Supple, no nuchal rigidity, no JVD, trachea midline, no tenderness Cardiac: RRR, no murmurs, no gallops, no rubs Chest/Lungs: CTAB, no wheeze, no rhonchi, no crackles Abdomen: soft, non-distended, no guarding, no peritoneal signs, non-tender Back: No tenderness Extremities: no edema, pulses intact, non-tender,capillary refill <3 sec bilateral upper and lower extremities, Neuro: Alert and oriented x 4, no focal deficits, normal speech Vitals Vitals: Vital Signs Date Time Temp Pulse Resp B/P (MAP) Pulse Ox O2 Delivery O2 Flow Rate FiO2 06/08/18 19:12 100.6 72 16 142/61 (88) 92 Room Air 100.6 Labs Labs Laboratory Tests Test 06/08/18 11:07 06/08/18 12:45 06/08/18 13:30 Glucose (Fingerstick) 131 mg/dL (70-99) White Blood Count 15.5 x10^3/uL (4.0-11.0) Red Blood Count 3.94 x10^6/uL (3.50-5.40) Hemoglobin 11.3 g/dL (12.0-15.5) Hematocrit 35.0 % (36.0-47.0) Mean Corpuscular Volume 89 fL (79-100) Mean Corpuscular Hemoglobin 29 pg (25-35) Mean Corpuscular Hemoglobin Concent 33 g/dL (31-37) Red Cell Distribution Width 14.9 % (11.5-14.5) Platelet Count 105 x10^3/uL (140-400) Neutrophils (%) (Auto) 91 % (31-73) Lymphocytes (%) (Auto) 4 % (24-48) Monocytes (%) (Auto) 6 % (0-9) Eosinophils (%) (Auto) 0 % (0-3) Basophils (%) (Auto) 0 % (0-3) Neutrophils # (Auto) 14.0 x10^3uL (1.8-7.7) Lymphocytes # (Auto) 0.6 x10^3/uL (1.0-4.8) Monocytes # (Auto) 0.8 x10^3/uL (0.0-1.1) Eosinophils # (Auto) 0.0 x10^3/uL (0.0-0.7) Basophils # (Auto) 0.0 x10^3/uL (0.0-0.2) Segmented Neutrophils % 97 % (35-66) Lymphocytes % 2 % (24-48) Monocytes % 1 % (0-10) Platelet Estimate Decreased (ADEQUATE) Anisocytosis Slight Prothrombin Time 16.1 SEC (11.7-14.0) Prothromb Time International Ratio 1.4 (0.8-1.1) Sodium Level 142 mmol/L (136-145) Potassium Level 2.8 mmol/L (3.5-5.1) Chloride Level 99 mmol/L (98-107) Carbon Dioxide Level 29 mmol/L (21-32) Anion Gap 14 (6-14) Blood Urea Nitrogen 22 mg/dL (7-20) Creatinine 1.6 mg/dL (0.6-1.0) Estimated GFR (Cockcroft-Gault) 37.4 BUN/Creatinine Ratio 14 (6-20) Glucose Level 133 mg/dL (70-99) Calcium Level 8.3 mg/dL (8.5-10.1) Magnesium Level 1.7 mg/dL (1.8-2.4) Total Bilirubin 1.7 mg/dL (0.2-1.0) Aspartate Amino Transf (AST/SGOT) 34 U/L (15-37) Alanine Aminotransferase (ALT/SGPT) 29 U/L (14-59) Alkaline Phosphatase 97 U/L (46-116) Troponin I Quantitative < 0.017 ng/mL (0.000-0.055) XQ-Dvh-O-Type Natriuretic Peptide 443 pg/mL (0-449) Total Protein 7.1 g/dL (6.4-8.2) Albumin 2.8 g/dL (3.4-5.0) Albumin/Globulin Ratio 0.7 (1.0-1.7) Thyroid Stimulating Hormone (TSH) 3.521 uIU/mL (0.358-3.74) Urine Collection Type U cath Urine Color [place] Urine Clarity Cloudy Urine pH 6.0 Urine Specific [place] 1.025 Urine Protein 100 mg/dL (NEG-TRACE) Urine Glucose (UA) Negative mg/dL (NEG) Urine Ketones (Stick) Trace mg/dL (NEG) Urine Blood Moderate (NEG) Urine Nitrite Negative (NEG) Urine Bilirubin Small (NEG) Urine Urobilinogen Dipstick 1.0 mg/dL (0.2 mg/dL) Urine Leukocyte Esterase Small (NEG) Urine RBC 0 /HPF (0-2) Urine WBC Rare /HPF (0-4) Urine Squamous Epithelial Cells Occ /LPF Urine Bacteria 0 /HPF (0-FEW) Urine Hyaline Casts Occasional /HPF Urine Mucus Mod /LPF Urine Opiates Screen Neg (NEG) Urine Methadone Screen Neg (NEG) Urine Barbiturates Neg (NEG) Urine Phencyclidine Screen Neg (NEG) Urine Amphetamine/Methamphetamine Neg (NEG) Urine Benzodiazepines Screen Neg (NEG) Urine Cocaine Screen Neg (NEG) Urine Cannabinoids Screen Neg (NEG) Urine Ethyl Alcohol Neg (NEG) Laboratory Tests Test 06/08/18 11:07 06/08/18 12:45 06/08/18 13:30 Glucose (Fingerstick) 131 mg/dL (70-99) White Blood Count 15.5 x10^3/uL (4.0-11.0) Red Blood Count 3.94 x10^6/uL (3.50-5.40) Hemoglobin 11.3 g/dL (12.0-15.5) Hematocrit 35.0 % (36.0-47.0) Mean Corpuscular Volume 89 fL (79-100) Mean Corpuscular Hemoglobin 29 pg (25-35) Mean Corpuscular Hemoglobin Concent 33 g/dL (31-37) Red Cell Distribution Width 14.9 % (11.5-14.5) Platelet Count 105 x10^3/uL (140-400) Neutrophils (%) (Auto) 91 % (31-73) Lymphocytes (%) (Auto) 4 % (24-48) Monocytes (%) (Auto) 6 % (0-9) Eosinophils (%) (Auto) 0 % (0-3) Basophils (%) (Auto) 0 % (0-3) Neutrophils # (Auto) 14.0 x10^3uL (1.8-7.7) Lymphocytes # (Auto) 0.6 x10^3/uL (1.0-4.8) Monocytes # (Auto) 0.8 x10^3/uL (0.0-1.1) Eosinophils # (Auto) 0.0 x10^3/uL (0.0-0.7) Basophils # (Auto) 0.0 x10^3/uL (0.0-0.2) Segmented Neutrophils % 97 % (35-66) Lymphocytes % 2 % (24-48) Monocytes % 1 % (0-10) Platelet Estimate Decreased (ADEQUATE) Anisocytosis Slight Prothrombin Time 16.1 SEC (11.7-14.0) Prothromb Time International Ratio 1.4 (0.8-1.1) Sodium Level 142 mmol/L (136-145) Potassium Level 2.8 mmol/L (3.5-5.1) Chloride Level 99 mmol/L (98-107) Carbon Dioxide Level 29 mmol/L (21-32) Anion Gap 14 (6-14) Blood Urea Nitrogen 22 mg/dL (7-20) Creatinine 1.6 mg/dL (0.6-1.0) Estimated GFR (Cockcroft-Gault) 37.4 BUN/Creatinine Ratio 14 (6-20) Glucose Level 133 mg/dL (70-99) Calcium Level 8.3 mg/dL (8.5-10.1) Magnesium Level 1.7 mg/dL (1.8-2.4) Total Bilirubin 1.7 mg/dL (0.2-1.0) Aspartate Amino Transf (AST/SGOT) 34 U/L (15-37) Alanine Aminotransferase (ALT/SGPT) 29 U/L (14-59) Alkaline Phosphatase 97 U/L (46-116) Troponin I Quantitative < 0.017 ng/mL (0.000-0.055) JB-Iwu-P-Type Natriuretic Peptide 443 pg/mL (0-449) Total Protein 7.1 g/dL (6.4-8.2) Albumin 2.8 g/dL (3.4-5.0) Albumin/Globulin Ratio 0.7 (1.0-1.7) Thyroid Stimulating Hormone (TSH) 3.521 uIU/mL (0.358-3.74) Urine Collection Type U cath Urine Color [place] Urine Clarity Cloudy Urine pH 6.0 Urine Specific [place] 1.025 Urine Protein 100 mg/dL (NEG-TRACE) Urine Glucose (UA) Negative mg/dL (NEG) Urine Ketones (Stick) Trace mg/dL (NEG) Urine Blood Moderate (NEG) Urine Nitrite Negative (NEG) Urine Bilirubin Small (NEG) Urine Urobilinogen Dipstick 1.0 mg/dL (0.2 mg/dL) Urine Leukocyte Esterase Small (NEG) Urine RBC 0 /HPF (0-2) Urine WBC Rare /HPF (0-4) Urine Squamous Epithelial Cells Occ /LPF Urine Bacteria 0 /HPF (0-FEW) Urine Hyaline Casts Occasional /HPF Urine Mucus Mod /LPF Urine Opiates Screen Neg (NEG) Urine Methadone Screen Neg (NEG) Urine Barbiturates Neg (NEG) Urine Phencyclidine Screen Neg (NEG) Urine Amphetamine/Methamphetamine Neg (NEG) Urine Benzodiazepines Screen Neg (NEG) Urine Cocaine Screen Neg (NEG) Urine Cannabinoids Screen Neg (NEG) Urine Ethyl Alcohol Neg (NEG) ORA GRIFFITHS MD Jun 08, 2018 20:29
--- NOTE | 2018-06-08 20:51 | RAD ---
Examination: Lower Extremity Venous Doppler Ultrasound History: Left leg pain Comparison: None Procedure: Lovell scale, color flow 2D and spectal waveform analysis images are obtained with and without compression in the area of the common femoral vein, superficial femoral vein - femoral vein junction, main femoral vein (superficial femoral vein) and popliteal vein. Veins of the proximal calf are also imaged. Findings: There is normal duplex flow, color flow and compressibility of all visualized vein segments. No evidence of deep venous thrombosis present. Impression: No evidence of DVT in the visualized left lower extremity venous system. Electronically signed by: Alexandro Hebert MD (06/08/2018 8:48 PM) [facility]
[2018-06-08] MEDS: MEMANTINE 10 MG TABLET. PO SCH (21:32)
[2018-06-08] MEDS: ENOXAPARIN 30 MG/0.3 ML SYRINGE. SQ SCH (21:34)
[2018-06-08] MEDS: amLODIPine BESYLATE 5 MG TABLET PO SCH (21:34)
[2018-06-08 22:38] VITALS: BP 160/77
[2018-06-09 02:48] VITALS: BP 150/78
[2018-06-09] MEDS: IV NORMAL SALINE 1000ML BAG 1,000 ML IV SCH ×2 (04:36→20:50)
[2018-06-09 06:32] LABS: CALCIUM 8.1 mg/dL (8.5-10.1); CREATININE 0.9 mg/dL (0.6-1.0); GFR 72.7; MAGNESIUM 2.1 mg/dL (1.8-2.4)
[2018-06-09 06:33] LABS: BASO % 0 % (0-3); EOS % 0 % (0-3); HEMATOCRIT 30.4 % (36.0-47.0); HEMOGLOBIN 10.2 g/dL (12.0-15.5); LYMPH # 0.9 x10^3/uL (1.0-4.8); LYMPH % 9 % (24-48); MEAN CORPUSCULAR HEMOGLOBIN 29 pg (25-35); MEAN CORPUSCULAR HGB CONC 33 g/dL (31-37); MEAN CORPUSCULAR VOLUME 88 fL (79-100); MONO # 0.8 x10^3/uL (0.0-1.1); MONO % 8 % (0-9); NEUT # 8.9 x10^3uL (1.8-7.7); NEUT % 84 % (31-73); PLATELET COUNT 86 x10^3/uL (140-400); RED BLOOD COUNT 3.47 x10^6/uL (3.50-5.40); RED CELL DISTRIBUTION WIDTH 14.7 % (11.5-14.5); WHITE BLOOD COUNT 10.7 x10^3/uL (4.0-11.0)
[2018-06-09 06:34] LABS: CHOLESTEROL/HDL RATIO 5.7
[2018-06-09] MEDS: PANTOPRAZOLE 40 MG TABLET.DR. PO SCH (06:42)
[2018-06-09 07:00] VITALS: BP 173/82
[2018-06-09] MEDS: SUCRALFATE 1 GM TABLET. PO SCH ×5 (08:00→21:00)
--- NOTE | 2018-06-09 08:00 | RAD ---
Left hip, 2 views, 06/08/2018: HISTORY: Hip pain Comparison is made to a study from 06/16/2011. The bony structures are demineralized. A left total hip prosthesis remains in place in satisfactory position. Several periarticular calcifications are unchanged. No recent fracture or dislocation is evident. IMPRESSION: 1. A left total hip prosthesis is in place. 2. No acute bony abnormality is detected. Electronically signed by: Jeffery Cantrell MD (06/09/2018 7:56 AM) [facility]
[2018-06-09] MEDS ORDERED: NON FORMULARY ITEM (Ranitidine Hcl 150 MG) PO SCH (09:00)
[2018-06-09] MEDS: FLUTICASONE 50MCG/NASAL SPRAY 16GM BOTTLE. NS SCH (09:00)
[2018-06-09] MEDS: LACTOBACILLUS RHAMNOSUS GG 1 CAPSULE. PO SCH ×2 (09:04→20:52)
[2018-06-09] MEDS: ASPIRIN CHEWABLE 81 MG TABLET. PO SCH (09:04)
[2018-06-09] MEDS: METOPROLOL SUCC 24HR ER 100 MG TAB.ER.24H. PO SCH (09:05)
[2018-06-09] MEDS: MEMANTINE 10 MG TABLET. PO SCH ×2 (09:05→20:52)
[2018-06-09] MEDS: amLODIPine BESYLATE 5 MG TABLET PO SCH ×2 (09:05→20:53)
[2018-06-09] MEDS ORDERED: POTASSIUM CHLORIDE 20 MEQ TABLET.ER. PO ONE ×2 (10:30→11:00)
[2018-06-09 10:45] VITALS: BP 174/78
--- NOTE | 2018-06-09 11:52 | CARD ---
MR#: [id number] Date of Study: 06/09/2018 Ordering Physician: ISAURA TRENT, Referring Physician: AUGUSTA ARELLANO, Tech: Aure Nava APPROVED REPORT EXAM: Two-dimensional and M-mode echocardiogram with Doppler and color Doppler. Other Information Quality : AverageHR: 98bpm INDICATION Hypertension/HCVD 2D DIMENSIONS RVDd2.9 (2.9-3.5cm)Left Atrium(2D)2.9 (1.6-4.0cm) IVSd1.0 (0.7-1.1cm)Aortic Root(2D)3.3 (2.0-3.7cm) LVDd4.3 (3.9-5.9cm)LVOT Diameter2.0 (1.8-2.4cm) PWd0.9 (0.7-1.1cm)LVDs2.3 (2.5-4.0cm) FS (%) 48.0 %SV67.6 ml LVEF(%)79.7 (>50%) Aortic Valve AoV Peak Khanh.163.0cm/sAoV VTI26.9cm AO Peak GR.10.6mmHgLVOT VTI 21.65cm AO Mean GR.6mmHg Mitral Valve MV E Rivpfxdl62.0cm/sMV DECEL [id number] MV A Gijgowby510.4cm/sE/A Ratio0.8 TDI Lateral E' P. V9.27cm/sMedial E' P. V6.89cm/s E/Lateral E'9.2E/Medial E'12.3 Tricuspid Valve TR P. Udmseuhh877tz/sRAP NQPFVWVE0uhMq TR Peak Gr.79mvWdRWJT62obVk Pulmonary Vein S1 Vixovazr61.8cm/sS2 Hhivlrqn04.83cm/s D2 Rcmoermb01.8cm/sPVa [id number] LEFT VENTRICLE The left ventricle is normal size. There is normal left ventricular wall thickness. The left ventricu lar systolic function is normal. The Ejection Fraction is 60%. There is normal LV segmental wall steph on. Transmitral Doppler flow pattern is Grade I-abnormal relaxation pattern. RIGHT VENTRICLE The right ventricle is normal size. There is normal right ventricular wall thickness. The right ventr icular systolic function is normal. ATRIA The left atrium size is normal. The right atrium size is normal. The interatrial septum is intact wit h no evidence for an atrial septal defect or patent foramen ovale as noted on 2-D or Doppler imaging. AORTIC VALVE The aortic valve is normal in structure and function. Doppler and Color Flow revealed trace aortic re gurgitation. There is no significant aortic valvular stenosis. MITRAL VALVE The mitral valve is normal in structure and function. There is no mitral valve stenosis. Doppler and Color-flow revealed trace mitral regurgitation. TRICUSPID VALVE The tricuspid valve is normal in structure and function. Doppler and Color Flow revealed trace tricus pid regurgitation. There is no tricuspid valve stenosis. PULMONIC VALVE The pulmonic valve is not well visualized. Doppler and Color Flow revealed trace pulmonic valvular re gurgitation. GREAT VESSELS The aortic root is normal in size. Normal pulmonary venous flow (Doppler). The IVC is normal in size and collapses >50% with inspiration. PERICARDIAL EFFUSION There is no evidence of significant pericardial effusion. Critical Notification Critical Value: No <Conclusion> The left ventricular systolic function is normal. The Ejection Fraction is 60%. There is normal LV segmental wall motion. Transmitral Doppler flow pattern is Grade I-abnormal relaxation pattern. Trace mitral regurgitation. Trace tricuspid regurgitation. There is no evidence of significant pericardial effusion. Signed by : Romaine Msoher, Electronically Approved : 06/09/2018 11:51:20
--- NOTE | 2018-06-09 12:50 | PDOC ---
PROGRESS NOTES Chief Complaint Chief Complaint AMS History of Present Illness History of Present Illness Pt seen at bedside today accompanied by family members including daughters and son. Pt reports right foot pain, erythema and swelling seen on examination of RLE top of foot. Pt is awake and alert. UA was negative for UTI but orange in appearance. Pt has IV antibiotics hanging. potassium repletion for hypokalemia 3.0, lovenox, norvasc, ntg. Pt has a history of DVT 4-6 mo ago on was on coumadin 4 months. LE US 06/08 was negative for DVT. Head CT was negative for acute stroke changes. Cardiology is following 2/2 abnormal EKG hypokalemia and hypoMg. Plan for Echo today per Cards. DW- RN Vitals Vitals Vital Signs Date Time Temp Pulse Resp B/P (MAP) Pulse Ox O2 Delivery O2 Flow Rate FiO2 06/09/18 10:45 100.3 96 16 174/78 (110) 93 Room Air 100.3 Physical Exam General: Alert, Cooperative, No acute distress Heart: Regular rate (SR), Normal S1, Normal S2, No murmurs Lungs: Clear Abdomen: Soft, No tenderness Extremities: No cyanosis, No edema Skin: No breakdown, Other (erythema and swelling on top aspect of Rt foot) Labs LABS Laboratory Tests Test 06/08/18 12:45 06/08/18 13:30 06/08/18 21:05 06/09/18 05:25 White Blood Count 15.5 x10^3/uL (4.0-11.0) 10.7 x10^3/uL (4.0-11.0) Red Blood Count 3.94 x10^6/uL (3.50-5.40) 3.47 x10^6/uL (3.50-5.40) Hemoglobin 11.3 g/dL (12.0-15.5) 10.2 g/dL (12.0-15.5) Hematocrit 35.0 % (36.0-47.0) 30.4 % (36.0-47.0) Mean Corpuscular Volume 89 fL (79-100) 88 fL (79-100) Mean Corpuscular Hemoglobin 29 pg (25-35) 29 pg (25-35) Mean Corpuscular Hemoglobin Concent 33 g/dL (31-37) 33 g/dL (31-37) Red Cell Distribution Width 14.9 % (11.5-14.5) 14.7 % (11.5-14.5) Platelet Count 105 x10^3/uL (140-400) 86 x10^3/uL (140-400) Neutrophils (%) (Auto) 91 % (31-73) 84 % (31-73) Lymphocytes (%) (Auto) 4 % (24-48) 9 % (24-48) Monocytes (%) (Auto) 6 % (0-9) 8 % (0-9) Eosinophils (%) (Auto) 0 % (0-3) 0 % (0-3) Basophils (%) (Auto) 0 % (0-3) 0 % (0-3) Neutrophils # (Auto) 14.0 x10^3uL (1.8-7.7) 8.9 x10^3uL (1.8-7.7) Lymphocytes # (Auto) 0.6 x10^3/uL (1.0-4.8) 0.9 x10^3/uL (1.0-4.8) Monocytes # (Auto) 0.8 x10^3/uL (0.0-1.1) 0.8 x10^3/uL (0.0-1.1) Eosinophils # (Auto) 0.0 x10^3/uL (0.0-0.7) 0.0 x10^3/uL (0.0-0.7) Basophils # (Auto) 0.0 x10^3/uL (0.0-0.2) 0.0 x10^3/uL (0.0-0.2) Segmented Neutrophils % 97 % (35-66) Lymphocytes % 2 % (24-48) Monocytes % 1 % (0-10) Platelet Estimate Decreased (ADEQUATE) Anisocytosis Slight Prothrombin Time 16.1 SEC (11.7-14.0) Prothromb Time International Ratio 1.4 (0.8-1.1) Sodium Level 142 mmol/L (136-145) 142 mmol/L (136-145) Potassium Level 2.8 mmol/L (3.5-5.1) 3.1 mmol/L (3.5-5.1) 3.0 mmol/L (3.5-5.1) Chloride Level 99 mmol/L (98-107) 105 mmol/L (98-107) Carbon Dioxide Level 29 mmol/L (21-32) 27 mmol/L (21-32) Anion Gap 14 (6-14) 10 (6-14) Blood Urea Nitrogen 22 mg/dL (7-20) 20 mg/dL (7-20) Creatinine 1.6 mg/dL (0.6-1.0) 0.9 mg/dL (0.6-1.0) Estimated GFR (Cockcroft-Gault) 37.4 72.7 BUN/Creatinine Ratio 14 (6-20) Glucose Level 133 mg/dL (70-99) 97 mg/dL (70-99) Calcium Level 8.3 mg/dL (8.5-10.1) 8.1 mg/dL (8.5-10.1) Magnesium Level 1.7 mg/dL (1.8-2.4) 2.1 mg/dL (1.8-2.4) Total Bilirubin 1.7 mg/dL (0.2-1.0) Aspartate Amino Transf (AST/SGOT) 34 U/L (15-37) Alanine Aminotransferase (ALT/SGPT) 29 U/L (14-59) Alkaline Phosphatase 97 U/L (46-116) Troponin I Quantitative < 0.017 ng/mL (0.000-0.055) HJ-Qul-H-Type Natriuretic Peptide 443 pg/mL (0-449) Total Protein 7.1 g/dL (6.4-8.2) Albumin 2.8 g/dL (3.4-5.0) Albumin/Globulin Ratio 0.7 (1.0-1.7) Thyroid Stimulating Hormone (TSH) 3.521 uIU/mL (0.358-3.74) Urine Collection Type U cath Urine Color [place] Urine Clarity Cloudy Urine pH 6.0 Urine Specific [place] 1.025 Urine Protein 100 mg/dL (NEG-TRACE) Urine Glucose (UA) Negative mg/dL (NEG) Urine Ketones (Stick) Trace mg/dL (NEG) Urine Blood Moderate (NEG) Urine Nitrite Negative (NEG) Urine Bilirubin Small (NEG) Urine Urobilinogen Dipstick 1.0 mg/dL (0.2 mg/dL) Urine Leukocyte Esterase Small (NEG) Urine RBC 0 /HPF (0-2) Urine WBC Rare /HPF (0-4) Urine Squamous Epithelial Cells Occ /LPF Urine Bacteria 0 /HPF (0-FEW) Urine Hyaline Casts Occasional /HPF Urine Mucus Mod /LPF Urine Opiates Screen Neg (NEG) Urine Methadone Screen Neg (NEG) Urine Barbiturates Neg (NEG) Urine Phencyclidine Screen Neg (NEG) Urine Amphetamine/Methamphetamine Neg (NEG) Urine Benzodiazepines Screen Neg (NEG) Urine Cocaine Screen Neg (NEG) Urine Cannabinoids Screen Neg (NEG) Urine Ethyl Alcohol Neg (NEG) Uric Acid 5.1 mg/dL (2.6-6.0) Creatine Kinase 81 U/L (26-192) Vitamin B12 Level 657 pg/mL (247-911) Triglycerides Level 64 mg/dL (0-150) Cholesterol Level 109 mg/dL (0-200) LDL Cholesterol, Calculated 77 mg/dL (0-100) VLDL Cholesterol, Calculated 13 mg/dL (0-40) Non-HDL Cholesterol Calculated 90 mg/dL (0-129) HDL Cholesterol 19 mg/dL (40-60) Cholesterol/HDL Ratio 5.7 Review of Systems Review of Systems General; Denies fever, chills, night sweats Cardio: Denies chest pain, palpitations Pulm: Denies soa, cough Assessment and Plan Assessmemt and Plan Assessment Acute on chronic renal failure Cr 0.9 Altered mental status UTI vs dementia vs metabolic encephalopathy Fall Generalized weakness Hypokalemia 3.0 Right foot pain- cellulitis History of DVT 6 mo ago Plan CBC BMP Considering rechecking UA for UTI Potassium repletion Lovenox Antibiotics Cardiac monitoring VTE prophylaxis Await results of Echo planned today Appreciate cardiology input Appreciate Neurology input PT/OT Home meds Comment Review of Relevant I have reviewed the following items thor (where applicable) has been applied. Labs Laboratory Tests Test 06/08/18 11:07 06/08/18 12:45 06/08/18 13:30 06/08/18 21:05 Glucose (Fingerstick) 131 mg/dL (70-99) White Blood Count 15.5 x10^3/uL (4.0-11.0) Red Blood Count 3.94 x10^6/uL (3.50-5.40) Hemoglobin 11.3 g/dL (12.0-15.5) Hematocrit 35.0 % (36.0-47.0) Mean Corpuscular Volume 89 fL (79-100) Mean Corpuscular Hemoglobin 29 pg (25-35) Mean Corpuscular Hemoglobin Concent 33 g/dL (31-37) Red Cell Distribution Width 14.9 % (11.5-14.5) Platelet Count 105 x10^3/uL (140-400) Neutrophils (%) (Auto) 91 % (31-73) Lymphocytes (%) (Auto) 4 % (24-48) Monocytes (%) (Auto) 6 % (0-9) Eosinophils (%) (Auto) 0 % (0-3) Basophils (%) (Auto) 0 % (0-3) Neutrophils # (Auto) 14.0 x10^3uL (1.8-7.7) Lymphocytes # (Auto) 0.6 x10^3/uL (1.0-4.8) Monocytes # (Auto) 0.8 x10^3/uL (0.0-1.1) Eosinophils # (Auto) 0.0 x10^3/uL (0.0-0.7) Basophils # (Auto) 0.0 x10^3/uL (0.0-0.2) Segmented Neutrophils % 97 % (35-66) Lymphocytes % 2 % (24-48) Monocytes % 1 % (0-10) Platelet Estimate Decreased (ADEQUATE) Anisocytosis Slight Prothrombin Time 16.1 SEC (11.7-14.0) Prothromb Time International Ratio 1.4 (0.8-1.1) Sodium Level 142 mmol/L (136-145) Potassium Level 2.8 mmol/L (3.5-5.1) 3.1 mmol/L (3.5-5.1) Chloride Level 99 mmol/L (98-107) Carbon Dioxide Level 29 mmol/L (21-32) Anion Gap 14 (6-14) Blood Urea Nitrogen 22 mg/dL (7-20) Creatinine 1.6 mg/dL (0.6-1.0) Estimated GFR (Cockcroft-Gault) 37.4 BUN/Creatinine Ratio 14 (6-20) Glucose Level 133 mg/dL (70-99) Calcium Level 8.3 mg/dL (8.5-10.1) Magnesium Level 1.7 mg/dL (1.8-2.4) Total Bilirubin 1.7 mg/dL (0.2-1.0) Aspartate Amino Transf (AST/SGOT) 34 U/L (15-37) Alanine Aminotransferase (ALT/SGPT) 29 U/L (14-59) Alkaline Phosphatase 97 U/L (46-116) Troponin I Quantitative < 0.017 ng/mL (0.000-0.055) AU-Pfs-B-Type Natriuretic Peptide 443 pg/mL (0-449) Total Protein 7.1 g/dL (6.4-8.2) Albumin 2.8 g/dL (3.4-5.0) Albumin/Globulin Ratio 0.7 (1.0-1.7) Thyroid Stimulating Hormone (TSH) 3.521 uIU/mL (0.358-3.74) Urine Collection Type U cath Urine Color [place] Urine Clarity Cloudy Urine pH 6.0 Urine Specific [place] 1.025 Urine Protein 100 mg/dL (NEG-TRACE) Urine Glucose (UA) Negative mg/dL (NEG) Urine Ketones (Stick) Trace mg/dL (NEG) Urine Blood Moderate (NEG) Urine Nitrite Negative (NEG) Urine Bilirubin Small (NEG) Urine Urobilinogen Dipstick 1.0 mg/dL (0.2 mg/dL) Urine Leukocyte Esterase Small (NEG) Urine RBC 0 /HPF (0-2) Urine WBC Rare /HPF (0-4) Urine Squamous Epithelial Cells Occ /LPF Urine Bacteria 0 /HPF (0-FEW) Urine Hyaline Casts Occasional /HPF Urine Mucus Mod /LPF Urine Opiates Screen Neg (NEG) Urine Methadone Screen Neg (NEG) Urine Barbiturates Neg (NEG) Urine Phencyclidine Screen Neg (NEG) Urine Amphetamine/Methamphetamine Neg (NEG) Urine Benzodiazepines Screen Neg (NEG) Urine Cocaine Screen Neg (NEG) Urine Cannabinoids Screen Neg (NEG) Urine Ethyl Alcohol Neg (NEG) Uric Acid 5.1 mg/dL (2.6-6.0) Creatine Kinase 81 U/L (26-192) Vitamin B12 Level 657 pg/mL (247-911) Test 06/09/18 05:25 White Blood Count 10.7 x10^3/uL (4.0-11.0) Red Blood Count 3.47 x10^6/uL (3.50-5.40) Hemoglobin 10.2 g/dL (12.0-15.5) Hematocrit 30.4 % (36.0-47.0) Mean Corpuscular Volume 88 fL (79-100) Mean Corpuscular Hemoglobin 29 pg (25-35) Mean Corpuscular Hemoglobin Concent 33 g/dL (31-37) Red Cell Distribution Width 14.7 % (11.5-14.5) Platelet Count 86 x10^3/uL (140-400) Neutrophils (%) (Auto) 84 % (31-73) Lymphocytes (%) (Auto) 9 % (24-48) Monocytes (%) (Auto) 8 % (0-9) Eosinophils (%) (Auto) 0 % (0-3) Basophils (%) (Auto) 0 % (0-3) Neutrophils # (Auto) 8.9 x10^3uL (1.8-7.7) Lymphocytes # (Auto) 0.9 x10^3/uL (1.0-4.8) Monocytes # (Auto) 0.8 x10^3/uL (0.0-1.1) Eosinophils # (Auto) 0.0 x10^3/uL (0.0-0.7) Basophils # (Auto) 0.0 x10^3/uL (0.0-0.2) Sodium Level 142 mmol/L (136-145) Potassium Level 3.0 mmol/L (3.5-5.1) Chloride Level 105 mmol/L (98-107) Carbon Dioxide Level 27 mmol/L (21-32) Anion Gap 10 (6-14) Blood Urea Nitrogen 20 mg/dL (7-20) Creatinine 0.9 mg/dL (0.6-1.0) Estimated GFR (Cockcroft-Gault) 72.7 Glucose Level 97 mg/dL (70-99) Calcium Level 8.1 mg/dL (8.5-10.1) Magnesium Level 2.1 mg/dL (1.8-2.4) Triglycerides Level 64 mg/dL (0-150) Cholesterol Level 109 mg/dL (0-200) LDL Cholesterol, Calculated 77 mg/dL (0-100) VLDL Cholesterol, Calculated 13 mg/dL (0-40) Non-HDL Cholesterol Calculated 90 mg/dL (0-129) HDL Cholesterol 19 mg/dL (40-60) Cholesterol/HDL Ratio 5.7 Laboratory Tests Test 06/08/18 12:45 06/08/18 13:30 06/08/18 21:05 06/09/18 05:25 White Blood Count 15.5 x10^3/uL (4.0-11.0) 10.7 x10^3/uL (4.0-11.0) Red Blood Count 3.94 x10^6/uL (3.50-5.40) 3.47 x10^6/uL (3.50-5.40) Hemoglobin 11.3 g/dL (12.0-15.5) 10.2 g/dL (12.0-15.5) Hematocrit 35.0 % (36.0-47.0) 30.4 % (36.0-47.0) Mean Corpuscular Volume 89 fL (79-100) 88 fL (79-100) Mean Corpuscular Hemoglobin 29 pg (25-35) 29 pg (25-35) Mean Corpuscular Hemoglobin Concent 33 g/dL (31-37) 33 g/dL (31-37) Red Cell Distribution Width 14.9 % (11.5-14.5) 14.7 % (11.5-14.5) Platelet Count 105 x10^3/uL (140-400) 86 x10^3/uL (140-400) Neutrophils (%) (Auto) 91 % (31-73) 84 % (31-73) Lymphocytes (%) (Auto) 4 % (24-48) 9 % (24-48) Monocytes (%) (Auto) 6 % (0-9) 8 % (0-9) Eosinophils (%) (Auto) 0 % (0-3) 0 % (0-3) Basophils (%) (Auto) 0 % (0-3) 0 % (0-3) Neutrophils # (Auto) 14.0 x10^3uL (1.8-7.7) 8.9 x10^3uL (1.8-7.7) Lymphocytes # (Auto) 0.6 x10^3/uL (1.0-4.8) 0.9 x10^3/uL (1.0-4.8) Monocytes # (Auto) 0.8 x10^3/uL (0.0-1.1) 0.8 x10^3/uL (0.0-1.1) Eosinophils # (Auto) 0.0 x10^3/uL (0.0-0.7) 0.0 x10^3/uL (0.0-0.7) Basophils # (Auto) 0.0 x10^3/uL (0.0-0.2) 0.0 x10^3/uL (0.0-0.2) Segmented Neutrophils % 97 % (35-66) Lymphocytes % 2 % (24-48) Monocytes % 1 % (0-10) Platelet Estimate Decreased (ADEQUATE) Anisocytosis Slight Prothrombin Time 16.1 SEC (11.7-14.0) Prothromb Time International Ratio 1.4 (0.8-1.1) Sodium Level 142 mmol/L (136-145) 142 mmol/L (136-145) Potassium Level 2.8 mmol/L (3.5-5.1) 3.1 mmol/L (3.5-5.1) 3.0 mmol/L (3.5-5.1) Chloride Level 99 mmol/L (98-107) 105 mmol/L (98-107) Carbon Dioxide Level 29 mmol/L (21-32) 27 mmol/L (21-32) Anion Gap 14 (6-14) 10 (6-14) Blood Urea Nitrogen 22 mg/dL (7-20) 20 mg/dL (7-20) Creatinine 1.6 mg/dL (0.6-1.0) 0.9 mg/dL (0.6-1.0) Estimated GFR (Cockcroft-Gault) 37.4 72.7 BUN/Creatinine Ratio 14 (6-20) Glucose Level 133 mg/dL (70-99) 97 mg/dL (70-99) Calcium Level 8.3 mg/dL (8.5-10.1) 8.1 mg/dL (8.5-10.1) Magnesium Level 1.7 mg/dL (1.8-2.4) 2.1 mg/dL (1.8-2.4) Total Bilirubin 1.7 mg/dL (0.2-1.0) Aspartate Amino Transf (AST/SGOT) 34 U/L (15-37) Alanine Aminotransferase (ALT/SGPT) 29 U/L (14-59) Alkaline Phosphatase 97 U/L (46-116) Troponin I Quantitative < 0.017 ng/mL (0.000-0.055) XP-Kzl-B-Type Natriuretic Peptide 443 pg/mL (0-449) Total Protein 7.1 g/dL (6.4-8.2) Albumin 2.8 g/dL (3.4-5.0) Albumin/Globulin Ratio 0.7 (1.0-1.7) Thyroid Stimulating Hormone (TSH) 3.521 uIU/mL (0.358-3.74) Urine Collection Type U cath Urine Color [place] Urine Clarity Cloudy Urine pH 6.0 Urine Specific [place] 1.025 Urine Protein 100 mg/dL (NEG-TRACE) Urine Glucose (UA) Negative mg/dL (NEG) Urine Ketones (Stick) Trace mg/dL (NEG) Urine Blood Moderate (NEG) Urine Nitrite Negative (NEG) Urine Bilirubin Small (NEG) Urine Urobilinogen Dipstick 1.0 mg/dL (0.2 mg/dL) Urine Leukocyte Esterase Small (NEG) Urine RBC 0 /HPF (0-2) Urine WBC Rare /HPF (0-4) Urine Squamous Epithelial Cells Occ /LPF Urine Bacteria 0 /HPF (0-FEW) Urine Hyaline Casts Occasional /HPF Urine Mucus Mod /LPF Urine Opiates Screen Neg (NEG) Urine Methadone Screen Neg (NEG) Urine Barbiturates Neg (NEG) Urine Phencyclidine Screen Neg (NEG) Urine Amphetamine/Methamphetamine Neg (NEG) Urine Benzodiazepines Screen Neg (NEG) Urine Cocaine Screen Neg (NEG) Urine Cannabinoids Screen Neg (NEG) Urine Ethyl Alcohol Neg (NEG) Uric Acid 5.1 mg/dL (2.6-6.0) Creatine Kinase 81 U/L (26-192) Vitamin B12 Level 657 pg/mL (247-911) Triglycerides Level 64 mg/dL (0-150) Cholesterol Level 109 mg/dL (0-200) LDL Cholesterol, Calculated 77 mg/dL (0-100) VLDL Cholesterol, Calculated 13 mg/dL (0-40) Non-HDL Cholesterol Calculated 90 mg/dL (0-129) HDL Cholesterol 19 mg/dL (40-60) Cholesterol/HDL Ratio 5.7 Medications Current Medications Sodium Chloride 1,000 ml @ 1,000 mls/hr 1X ONCE IV Last administered on at 13:27; Start 06/08/18 at 11:30; Stop 06/08/18 at 12:29; Status DC Potassium Chloride (KCl Oral Soln) 40 meq 1X ONCE PO Last administered on 06/08at 13:38; Start 06/08/18 at 13:30; Stop 06/08/18 at 13:31; Status DC Ondansetron HCl (Zofran) 4 mg PRN Q8HRS PRN IV NAUSEA/VOMITING; Start 06/08/18 at 16:00; Stop 06/09/18 at 15:59 Acetaminophen (Tylenol) 650 mg PRN Q4HRS PRN PO FEVER; Start 06/08/18 at 16:00 ; Stop 06/09/18 at 15:59 Potassium Chloride/Sodium Chloride 1,000 ml @ 75 mls/hr 1X ONCE IV Last administered on 06/08/18at 16:38; Start 06/08/18 at 16:00; Stop 06/09/18 at 05:19 ; Status DC Ceftriaxone Sodium 50 ml @ 100 mls/hr 1X ONCE IV ; Start 06/08/18 at 16:15; Stop 06/08/18 at 16:44; Status UNV Ceftriaxone Sodium (Rocephin) 1 gm 1X ONCE IVP Last administered on 06/08/18at 16:37; Start 06/08/18 at 16:30; Stop 06/08/18 at 16:31; Status DC Magnesium Sulfate 50 ml @ 25 mls/hr 1X ONCE IV Last administered on 06/08/18at 17:03; Start 06/08/18 at 17:00; Stop 06/08/18 at 18:59; Status DC Ceftriaxone Sodium (Rocephin) 1 gm Q24H IVP ; Start 06/09/18 at 16:30 Sodium Chloride 1,000 ml @ 85 mls/hr [id number] IV Last administered on at 04:36; Start 06/08/18 at 16:30 Fentanyl Citrate (Fentanyl 2ml Vial) 25 mcg PRN Q3HRS PRN IV PAIN; Start at 16:30 Fentanyl Citrate (Fentanyl 2ml Vial) 50 mcg PRN Q3HRS PRN IV PAIN Last administered on 06/08/18at 16:37; Start 06/08/18 at 16:30 Magnesium Sulfate/ Dextrose 100 ml @ 100 mls/hr 1X ONCE IV ; Start 06/08/18 at 16:30; Stop 06/08/18 at 17:29; Status UNV Lisinopril (Prinivil) 20 mg DAILYWSUP PO ; Start 06/09/18 at 17:00 Metoprolol Succinate (Toprol Xl) 100 mg DAILY PO Last administered on at 09:05; Start 06/09/18 at 09:00 Nitroglycerin (Nitrostat) 0.4 mg PRN Q5MIN PRN SL CHEST PAIN; Start 06/08/18 at 17:15 Amlodipine Besylate (Norvasc) 2.5 mg BID PO Last administered on 06/09/18at 09: 05; Start 06/08/18 at 21:00 Fluticasone Propionate (Flonase) 2 spray DAILY NS ; Start 06/09/18 at 09:00 Memantine (Namenda) 10 mg BID PO Last administered on 06/09/18at 09:05; Start 06/08/18 at 21:00 Pantoprazole Sodium (Protonix) 40 mg DAILYAC PO Last administered on 06/09/18at 06:42; Start 06/09/18 at 07:30 Non-Formulary Medication (Ranitidine Hcl ) 150 mg DAILY PO ; Start 06/09/18 at 09:00; Status UNV Sucralfate (Carafate) 1 gm TIDWMEALHC PO Last administered on 06/08/18at 21:33; Start 06/08/18 at 17:30 Enoxaparin Sodium (Lovenox 30mg Syringe) 30 mg Q24H SQ Last administered on 06/08/18at 21:34; Start 06/08/18 at 21:00 Aspirin (Children'S Aspirin) 81 mg DAILYWBKFT PO Last administered on at 09:04; Start 06/09/18 at 08:00 Lactobacillus Rhamnosus (Culturelle) 1 cap BID PO Last administered on at 09:04; Start 06/09/18 at 09:00 Potassium Chloride (Klor-Con) 40 meq 1X ONCE PO ; Start 06/09/18 at 11:00; Stop 06/09/18 at 11:01; Status DC Potassium Chloride (Klor-Con) 40 meq 1X ONCE PO Last administered on at 11:16; Start 06/09/18 at 10:30; Stop 06/09/18 at 10:31; Status DC Active Scripts Active Reported Ranitidine Hcl 150 Mg Capsule 150 Mg PO DAILY Amlodipine Besylate 2.5 Mg Tablet 2.5 Mg PO BID Namenda (Memantine Hcl) 10 Mg Tablet 1 Tab PO BID Flonase Allergy Relief (Fluticasone Propionate) 9.9 Ml [place].susp 2 Sprays NS DAILY NITROGLYCERIN SubLingual (Nitroglycerin) 0.4 Mg Tab.subl 0.4 Mg SL PRN Q5MIN PRN Omeprazole 40 Mg Capsule.dr 1 Cap PO DAILY Lisinopril 20 Mg Tablet 20 Mg PO DAILYWSUP Alprazolam 0.5 Mg Tablet 1 Tab PO BID Sucralfate 1 Gm/10 Ml Oral.susp 1 Gm PO TIDWMEALHC Toprol Xl (Metoprolol Succinate) 100 Mg Tab.er.24h 1 Tab PO DAILY Vitals/I & O Vital Sign - Last 24 Hours 06/08/18 06/08/18 06/08/18 06/08/18 12:40 13:20 13:40 14:20 Pulse 84 88 90 90 Resp 20 20 22 22 B/P (MAP) 159/74 (102) 158/72 (100) 155/72 (99) 158/74 (102) Pulse Ox 98 99 98 97 O2 Delivery Room Air Room Air Room Air Room Air 06/08/18 06/08/18 06/08/18 06/08/18 14:50 15:20 15:40 16:37 Pulse 88 82 Resp 22 20 16 B/P (MAP) 155/70 (98) 148/69 (95) Pulse Ox 99 98 O2 Delivery Room Air Room Air Room Air Room Air 06/08/18 06/08/18 06/08/18 06/08/18 16:55 19:12 20:00 21:34 Temp 100.6 100.6 Pulse 82 72 84 Resp 20 16 B/P (MAP) 148/72 (97) 142/61 (88) 142/61 Pulse Ox 98 92 O2 Delivery Room Air Room Air Room Air 06/08/18 06/09/18 06/09/18 06/09/18 22:38 02:48 07:00 08:00 Temp 97.9 98.7 98.7 97.9 98.7 98.7 Pulse 78 90 91 Resp 16 16 16 B/P (MAP) 160/77 (104) 150/78 (102) 173/82 (112) Pulse Ox 94 96 97 O2 Delivery Room Air Room Air Room Air Room Air 06/09/18 06/09/18 06/09/18 09:05 09:05 10:45 Temp 100.3 100.3 Pulse 100 100 96 Resp 16 B/P (MAP) 173/82 173/82 174/78 (110) Pulse Ox 93 O2 Delivery Room Air Intake and Output 06/08/18 06/08/18 06/09/18 15:00 23:00 07:00 Intake Total 100 ml 120 ml Balance 100 ml 120 ml WILLIAM CHRISTIAN III DO Jun 09, 2018 12:50
--- NOTE | 2018-06-09 13:57 | PDOC ---
PROGRESS NOTES Assessment Assessment Metabolic encephalopathy. Generalized weakness x 3 weeks. LE pain. Cellulitis, LE. Leukocytosis. Fever. Hypokalemia, K 2.8. HTN. CAD s/p stent. Renal failure. Dementia features. RECOMMENDATIONS/PLAN: EEG Brain MRI w/o contrast. ASA 81 mg daily. Correct electrolytes imbalances. Treat medical diseases. Discussed with her daughter, son and grand daughter in detail at bedside on 06/09. HISTORY OF THE PRESENT ILLNESS: 82-y-old AA female patient with above medical diseases has been having symptoms of generalized weakness for about 3 weeks difficult for physical activities. Her family also noted her mental status changes not acting like herself. She complained pain in her bilateral LE and left hip area. PAST MEDICAL HISTORY Past Medical History Cardiovascular: CAD, HTN, Hyperlipidemia CENTRAL NERVOUS SYSTEM: CVA, Dementia GI: GERD Musculoskeletal: Osteoarthritis Neurology: dementia PAST SURGICAL HISTORY Total hip replacement (bilateral), Hysterectomy, Other (PCI/stent, lumbar fusion ) FAMILY HISTORY Noncontributory. SOCIAL HISTORY Smoke: No ALCOHOL: none Drugs: None Lives: with Family ALLERGY: NKDA MEDICATIONS: Refer to MAR REVIEW OF SYSTEMS: Constitutional: No cachexia. Head: No traumatic brain or head injury. Skin: No edema, or rash. Ear: No infection. Eyes: No vision loss or color blindness. Nose: No bleeding or purulent discharges. Hearing: Hearing decrease. Neck: No injury. Breast: No history of cancer, masses,or discharges. Cardiac: CAD, s/p stent. HTN. Pulmonary: No COPD. GI: No GI ulcer, GI bleeding. Urinary/genital: UTI. Endocrinologic: No cousin face, craniofacial dysmorphism, polydactyly. Skeletomuscular: Generalized weakness. Neurological: see HP. Psychiatric: Denies drug use/abuse. Otherwise, not [id number] review of systems. PHYSICAL EXAMINATION: General appearance is in subacute distress. HEENT: Normocephalic and nontraumatic. Eyes, nose, ears, and throat are unremarkable. Neck is supple. No lymphadenopathy. No crepitus. Cardiovascular: S1, S2, regular rate and rhythm. Pulmonary: Clear to auscultation bilaterally. Abdomen: Bowel sounds are positive. Abdomen is soft, nontender, and nondistended. Extremities: No rash, lesions. No restriction of range of motion NEUROLOGICAL EXAMINATION: Awake. Not oriented to time, place but knew person. PERRL. EOMI. CN: no focal findings. Muscle tone: within normal. Muscle strength: 4 UE, not able to access LE due to pain DTR: 2 UE, 1 at knee. Plantar reflex: Neutral response bilaterally Gait: not examined in bed. Sensory exam: no abnormal findings. No cerebellar signs elicited. F-T-N test fine. Objective Objective Vital Signs Date Time Temp Pulse Resp B/P (MAP) Pulse Ox O2 Delivery O2 Flow Rate FiO2 06/09/18 10:45 100.3 96 16 174/78 (110) 93 Room Air 100.3 Intake and Output 06/09/18 07:00 Intake Total 220 ml Balance 220 ml Intake Oral 220 ml # Voids 1 Vitals Signs Vitals VS - Last 72 Hours, by Label Date Time Temp Pulse Resp B/P (MAP) Pulse Ox O2 Delivery O2 Flow Rate FiO2 06/09/18 10:45 100.3 96 16 174/78 (110) 93 Room Air 100.3 06/09/18 09:05 100 173/82 06/09/18 09:05 100 173/82 06/09/18 08:00 Room Air 06/09/18 07:00 98.7 91 16 173/82 (112) 97 Room Air 98.7 06/09/18 02:48 98.7 90 16 150/78 (102) 96 Room Air 98.7 06/08/18 22:38 97.9 78 16 160/77 (104) 94 Room Air 97.9 06/08/18 21:34 84 142/61 06/08/18 20:00 Room Air 06/08/18 19:12 100.6 72 16 142/61 (88) 92 Room Air 100.6 06/08/18 16:55 82 20 148/72 (97) 98 Room Air 06/08/18 16:37 16 Room Air 06/08/18 15:40 Room Air 06/08/18 15:20 82 20 148/69 (95) 98 Room Air 06/08/18 14:50 88 22 155/70 (98) 99 Room Air 06/08/18 14:20 90 22 158/74 (102) 97 Room Air 06/08/18 13:40 90 22 155/72 (99) 98 Room Air 06/08/18 13:20 88 20 158/72 (100) 99 Room Air 06/08/18 12:40 84 20 159/74 (102) 98 Room Air 06/08/18 12:12 84 19 122/68 (86) 97 Room Air 06/08/18 11:42 79 21 145/70 (95) 98 Room Air 06/08/18 11:18 99.6 104 20 116/60 (78) 96 Room Air 99.6 Laboratory Laboratory Laboratory Tests Test 06/08/18 21:05 06/09/18 05:25 Potassium Level 3.1 mmol/L (3.5-5.1) 3.0 mmol/L (3.5-5.1) Uric Acid 5.1 mg/dL (2.6-6.0) Creatine Kinase 81 U/L (26-192) Vitamin B12 Level 657 pg/mL (247-911) White Blood Count 10.7 x10^3/uL (4.0-11.0) Red Blood Count 3.47 x10^6/uL (3.50-5.40) Hemoglobin 10.2 g/dL (12.0-15.5) Hematocrit 30.4 % (36.0-47.0) Mean Corpuscular Volume 88 fL (79-100) Mean Corpuscular Hemoglobin 29 pg (25-35) Mean Corpuscular Hemoglobin Concent 33 g/dL (31-37) Red Cell Distribution Width 14.7 % (11.5-14.5) Platelet Count 86 x10^3/uL (140-400) Neutrophils (%) (Auto) 84 % (31-73) Lymphocytes (%) (Auto) 9 % (24-48) Monocytes (%) (Auto) 8 % (0-9) Eosinophils (%) (Auto) 0 % (0-3) Basophils (%) (Auto) 0 % (0-3) Neutrophils # (Auto) 8.9 x10^3uL (1.8-7.7) Lymphocytes # (Auto) 0.9 x10^3/uL (1.0-4.8) Monocytes # (Auto) 0.8 x10^3/uL (0.0-1.1) Eosinophils # (Auto) 0.0 x10^3/uL (0.0-0.7) Basophils # (Auto) 0.0 x10^3/uL (0.0-0.2) Sodium Level 142 mmol/L (136-145) Chloride Level 105 mmol/L (98-107) Carbon Dioxide Level 27 mmol/L (21-32) Anion Gap 10 (6-14) Blood Urea Nitrogen 20 mg/dL (7-20) Creatinine 0.9 mg/dL (0.6-1.0) Estimated GFR (Cockcroft-Gault) 72.7 Glucose Level 97 mg/dL (70-99) Calcium Level 8.1 mg/dL (8.5-10.1) Magnesium Level 2.1 mg/dL (1.8-2.4) Triglycerides Level 64 mg/dL (0-150) Cholesterol Level 109 mg/dL (0-200) LDL Cholesterol, Calculated 77 mg/dL (0-100) VLDL Cholesterol, Calculated 13 mg/dL (0-40) Non-HDL Cholesterol Calculated 90 mg/dL (0-129) HDL Cholesterol 19 mg/dL (40-60) Cholesterol/HDL Ratio 5.7 Medication Medications Current Medications Acetaminophen (Tylenol) 650 mg PRN Q4HRS PRN PO FEVER; Start 06/08/18 at 16:00 ; Stop 06/09/18 at 15:59 Amlodipine Besylate (Norvasc) 2.5 mg BID PO Last administered on 06/09/18at 09: 05; Start 06/08/18 at 21:00 Aspirin (Children'S Aspirin) 81 mg DAILYWBKFT PO Last administered on at 09:04; Start 06/09/18 at 08:00 Ceftriaxone Sodium 50 ml @ 100 mls/hr 1X ONCE IV ; Start 06/08/18 at 16:15; Stop 06/08/18 at 16:44; Status UNV Ceftriaxone Sodium (Rocephin) 1 gm 1X ONCE IVP Last administered on 06/08/18at 16:37; Start 06/08/18 at 16:30; Stop 06/08/18 at 16:31; Status DC Ceftriaxone Sodium (Rocephin) 1 gm Q24H IVP ; Start 06/09/18 at 16:30 Enoxaparin Sodium (Lovenox 30mg Syringe) 30 mg Q24H SQ Last administered on 06/08/18at 21:34; Start 06/08/18 at 21:00 Fentanyl Citrate (Fentanyl 2ml Vial) 25 mcg PRN Q3HRS PRN IV PAIN; Start at 16:30 Fentanyl Citrate (Fentanyl 2ml Vial) 50 mcg PRN Q3HRS PRN IV PAIN Last administered on 06/08/18at 16:37; Start 06/08/18 at 16:30 Fluticasone Propionate (Flonase) 2 spray DAILY NS ; Start 06/09/18 at 09:00 Lactobacillus Rhamnosus (Culturelle) 1 cap BID PO Last administered on at 09:04; Start 06/09/18 at 09:00 Lisinopril (Prinivil) 20 mg DAILYWSUP PO ; Start 06/09/18 at 17:00 Magnesium Sulfate 50 ml @ 25 mls/hr 1X ONCE IV Last administered on 06/08/18at 17:03; Start 06/08/18 at 17:00; Stop 06/08/18 at 18:59; Status DC Magnesium Sulfate/ Dextrose 100 ml @ 100 mls/hr 1X ONCE IV ; Start 06/08/18 at 16:30; Stop 06/08/18 at 17:29; Status UNV Memantine (Namenda) 10 mg BID PO Last administered on 06/09/18at 09:05; Start 06/08/18 at 21:00 Metoprolol Succinate (Toprol Xl) 100 mg DAILY PO Last administered on at 09:05; Start 06/09/18 at 09:00 Nitroglycerin (Nitrostat) 0.4 mg PRN Q5MIN PRN SL CHEST PAIN; Start 06/08/18 at 17:15 Non-Formulary Medication (Ranitidine Hcl ) 150 mg DAILY PO ; Start 06/09/18 at 09:00; Status UNV Ondansetron HCl (Zofran) 4 mg PRN Q8HRS PRN IV NAUSEA/VOMITING; Start 06/08/18 at 16:00; Stop 06/09/18 at 15:59 Pantoprazole Sodium (Protonix) 40 mg DAILYAC PO Last administered on 06/09/18at 06:42; Start 06/09/18 at 07:30 Potassium Chloride/Sodium Chloride 1,000 ml @ 75 mls/hr 1X ONCE IV Last administered on 06/08/18at 16:38; Start 06/08/18 at 16:00; Stop 06/09/18 at 05:19 ; Status DC Potassium Chloride (Klor-Con) 40 meq 1X ONCE PO Last administered on at 11:16; Start 06/09/18 at 10:30; Stop 06/09/18 at 10:31; Status DC Potassium Chloride (Klor-Con) 40 meq 1X ONCE PO ; Start 06/09/18 at 11:00; Stop 06/09/18 at 11:01; Status DC Sodium Chloride 1,000 ml @ 85 mls/hr [id number] IV Last administered on at 04:36; Start 06/08/18 at 16:30 Sucralfate (Carafate) 1 gm [id number] PO Last administered on 06/08/18at 21:33; Start 06/08/18 at 17:30 Comment Review of Relevant I have reviewed the following items thor (where applicable) has been applied. ORA GRIFFITHS MD Jun 09, 2018 13:57
--- NOTE | 2018-06-09 15:36 | EKG ---
[facility] [address] [place] [address] Test Date: 2018-06-09 Test Time: 15:32:36 Pat Name: EFREN QUACH Department: Room: 206 1 Gender: F Career Services Representative: SERINA : 1935 Requested By: ISAURA TRENT Order Number: [id number] Reading MD: Leon Hernandez MD Measurements Intervals [place] Rate: 106 P: -60 NM: 108 QRS: -7 QRSD: 82 T: 57 QT: 382 QTc: 509 Interpretive Statements SINUS TACHYCARDIA Electronically Signed On 06-09-2018 19:58:38 PULPER by Leon Hernandez MD
--- NOTE | 2018-06-09 15:41 | RAD ---
MRI of the brain without contrast 06/09/2018 Clinical History: Altered mental status and weakness. Technique: Unenhanced T1-weighted sagittal and axial, T2-weighted axial and coronal and FLAIR, gradient echo and diffusion-weighted axial images of the brain were obtained. Findings: Comparison is made to patient's CT scan of the head dated 06/08/2018. Some of the images are degraded by patient motion. There is generalized parenchymal atrophy. Patchy and several small focal areas of increased signal intensity are seen within the periventricular and subcortical white matter of both cerebral hemispheres on the FLAIR and T2-weighted images consistent with areas of small vessel ischemic disease. No acute parenchymal abnormality is seen. No extra-axial fluid collection is seen. There is no MRI evidence of acute ischemia/infarction. The paranasal sinuses are essentially clear. Normal flow voids are seen within the major vascular structures surrounding the brain parenchyma. Impression: No acute parenchymal abnormality is seen. Electronically signed by: Jake Gardner MD (06/09/2018 3:37 PM) [id number]
[2018-06-09] MEDS: LISINOPRIL 20 MG TABLET PO SCH (18:22)
[2018-06-09] MEDS: cefTRIAXone IV Push 1 GM VIAL. IVP SCH (18:36)
--- NOTE | 2018-06-09 19:14 | EEG ---
DATE OF SERVICE: 06/09/2018 EEG #: [id number] OBJECTIVE: This is an 82-year-old -[place] female patient with history of mental status changes. EEG was requested to evaluate cerebral activity. METHOD: Twenty electrodes were applied according to the international 10-20 electrode placement system. EKG monitoring, hyperventilation, intermittent photic stimulation, monopolar and bipolar montages were routinely utilized. The record was obtained on a digital system with video monitoring. FINDINGS: 1. Background: The patient was recorded in the awake, drowsy, and sleep states. The overall background amplitude was 10-20 microvolts. A posterior dominant rhythm of 6-7 Hz is observed with superimposed slowing in the theta and delta frequencies throughout the entire recording. 2. Abnormalities: No specific epileptiform discharge or electrographic seizure is seen. Diffuse slowing in the theta and delta frequencies throughout the entire recording. 3. Activation: Hyperventilation was performed with fair effort. Intermittent photic stimulation was performed with photic driving. IMPRESSION: This EEG is an abnormal study for the awake, drowsy, and sleep states. The posterior dominant rhythm of 6-7 Hz is slow for age. There is superimposed slowing in the theta and delta frequencies throughout the entire recording. No focal, lateralizing, specific epileptiform discharge is seen. This pattern of EEG may suggest encephalopathy. Suggest repeat EEG in the future at her normal baseline status. ORA GRIFFITHS MD DR: ROSA/karl JOB#: [id number] / [id number] ABBI
[2018-06-09 19:20] VITALS: BP 139/73
[2018-06-09] MEDS: ENOXAPARIN 30 MG/0.3 ML SYRINGE. SQ SCH (20:52)
[2018-06-09 23:20] VITALS: BP 124/60
--- NOTE | 2018-06-10 03:16 | EKG ---
[facility] [address] [place] [address] Test Date: 2018-06-10 Test Time: 03:05:51 Pat Name: EFREN QUACH Department: Room: 206 1 Gender: F Instructional Support Specialist: DOREEN : 1935 Requested By: KORI REED Order Number: [id number] Reading MD: Measurements Intervals [place] Rate: 119 P: TN: QRS: -14 QRSD: 80 T: -35 QT: 340 QTc: 479 Interpretive Statements IRREGULAR RHYTHM, NO P-WAVE FOUND VENTRICULAR PREMATURE COMPLEX(ES) LEFTWARD AXIS ST & T ABNORMALITY, CONSIDER INFERIOR ISCHEMIA OR LEFT VENTRICULAR STRAIN ABNORMAL ECG RI6.01 Compared to ECG 06/09/2018 15:32:36 Left-axis deviation now present T-wave abnormality now present Possible ischemia now present Sinus tachycardia no longer present
[2018-06-10 03:25] VITALS: BP 154/86
[2018-06-10] MEDS: fentaNYL PF VIAL 100 MCG/2 ML VIAL IV PRN (04:06)
[2018-06-10 07:00] VITALS: BP 134/82
[2018-06-10 08:39] LABS: BASO % 0 % (0-3); EOS % 0 % (0-3); HEMATOCRIT 29.6 % (36.0-47.0); LYMPH # 1.2 x10^3/uL (1.0-4.8); LYMPH % 13 % (24-48); MEAN CORPUSCULAR HEMOGLOBIN 30 pg (25-35); MEAN CORPUSCULAR HGB CONC 34 g/dL (31-37); MEAN CORPUSCULAR VOLUME 87 fL (79-100); MONO # 0.7 x10^3/uL (0.0-1.1); MONO % 8 % (0-9); NEUT # 7.5 x10^3uL (1.8-7.7); NEUT % 79 % (31-73); PLATELET COUNT 101 x10^3/uL (140-400); RED BLOOD COUNT 3.39 x10^6/uL (3.50-5.40); RED CELL DISTRIBUTION WIDTH 14.6 % (11.5-14.5); WHITE BLOOD COUNT 9.4 x10^3/uL (4.0-11.0)
[2018-06-10] MEDS: FLUTICASONE 50MCG/NASAL SPRAY 16GM BOTTLE. NS SCH (09:00)
[2018-06-10] MEDS: POTASSIUM CHLORIDE 20 MEQ/15 ML ORAL LIQUID. PO SCH ×2 (09:06→12:57)
[2018-06-10] MEDS: ASPIRIN CHEWABLE 81 MG TABLET. PO SCH (09:06)
[2018-06-10] MEDS: LACTOBACILLUS RHAMNOSUS GG 1 CAPSULE. PO SCH ×2 (09:07→20:57)
[2018-06-10] MEDS: METOPROLOL SUCC 24HR ER 100 MG TAB.ER.24H. PO SCH (09:07)
[2018-06-10] MEDS: MEMANTINE 10 MG TABLET. PO SCH ×2 (09:07→20:57)
[2018-06-10] MEDS: PANTOPRAZOLE 40 MG TABLET.DR. PO SCH (09:07)
[2018-06-10] MEDS: SUCRALFATE 1 GM TABLET. PO SCH ×4 (09:07→20:57)
[2018-06-10] MEDS: IV NORMAL SALINE 1000ML BAG 1,000 ML IV SCH ×2 (09:08→20:57)
[2018-06-10 09:09] LABS: CALCIUM 8.2 mg/dL (8.5-10.1); CREATININE 0.9 mg/dL (0.6-1.0); GFR 72.7
[2018-06-10] MEDS: amLODIPine BESYLATE 5 MG TABLET PO SCH ×2 (09:09→20:57)
[2018-06-10 09:15] LABS: POTASSIUM 2.6 mmol/L (3.5-5.1)
[2018-06-10 11:00] VITALS: BP 152/79
--- NOTE | 2018-06-10 11:32 | PDOC ---
PROGRESS NOTES Chief Complaint Chief Complaint AMS, RLE cellulitis History of Present Illness History of Present Illness Pt seen at bedside today with RN. Pt continues to have Right sided pain especially right foot pain, erythema and increased swelling seen on examination of RLE top of foot, will consult orthopedics. Pt is awake and alert. Current events include Afib rate 140's currently 129, cardiology following Pt has IV antibiotics hanging. potassium repletion for hypokalemia 2.6 refractory to repletion, lovenox, norvasc, ntg. Pt has a history of DVT 4-6 mo ago on was on coumadin 4 months. LE US 06/08 was negative for DVT. Cardiology is following Echo 06/09 EF 60% DW- RN Followed by cardio, neuro, ortho Vitals Vitals Vital Signs Date Time Temp Pulse Resp B/P (MAP) Pulse Ox O2 Delivery O2 Flow Rate FiO2 06/10/18 09:09 85 134/82 06/10/18 08:00 Room Air 06/10/18 07:00 97.6 18 96 97.6 Physical Exam General: Alert, Oriented X3, Cooperative, No acute distress Heart: Normal S1, No murmurs, Other (Afib R 129) Lungs: Clear Abdomen: Soft, No tenderness Extremities: No cyanosis, No edema Skin: No breakdown, Other (erythema and swelling on top aspect of Rt foot) Labs LABS Laboratory Tests Test 06/10/18 08:25 White Blood Count 9.4 x10^3/uL (4.0-11.0) Red Blood Count 3.39 x10^6/uL (3.50-5.40) Hemoglobin 10.0 g/dL (12.0-15.5) Hematocrit 29.6 % (36.0-47.0) Mean Corpuscular Volume 87 fL (79-100) Mean Corpuscular Hemoglobin 30 pg (25-35) Mean Corpuscular Hemoglobin Concent 34 g/dL (31-37) Red Cell Distribution Width 14.6 % (11.5-14.5) Platelet Count 101 x10^3/uL (140-400) Neutrophils (%) (Auto) 79 % (31-73) Lymphocytes (%) (Auto) 13 % (24-48) Monocytes (%) (Auto) 8 % (0-9) Eosinophils (%) (Auto) 0 % (0-3) Basophils (%) (Auto) 0 % (0-3) Neutrophils # (Auto) 7.5 x10^3uL (1.8-7.7) Lymphocytes # (Auto) 1.2 x10^3/uL (1.0-4.8) Monocytes # (Auto) 0.7 x10^3/uL (0.0-1.1) Eosinophils # (Auto) 0.0 x10^3/uL (0.0-0.7) Basophils # (Auto) 0.0 x10^3/uL (0.0-0.2) Sodium Level 139 mmol/L (136-145) Potassium Level 2.6 mmol/L (3.5-5.1) Chloride Level 101 mmol/L (98-107) Carbon Dioxide Level 29 mmol/L (21-32) Anion Gap 9 (6-14) Blood Urea Nitrogen 10 mg/dL (7-20) Creatinine 0.9 mg/dL (0.6-1.0) Estimated GFR (Cockcroft-Gault) 72.7 Glucose Level 97 mg/dL (70-99) Calcium Level 8.2 mg/dL (8.5-10.1) Review of Systems Review of Systems General: Denies Fever, chills, nightsweats Cardio: Denies chest pain, palpitations Assessment and Plan Assessmemt and Plan Assessment Acute on chronic renal failure Cr 0.9 Altered mental status UTI vs dementia vs metabolic encephalopathy Afib Fall Generalized weakness Hypokalemia 2.6 Right foot pain- cellulitis History of DVT 6 mo ago Plan CBC BMP Potassium repletion Magnesium repletion Lovenox Antibiotics Cardiac monitoring VTE prophylaxis Appreciate cardiology input Appreciate Neurology input Appreciate Orthopedic input PT/OT Home meds Comment Review of Relevant I have reviewed the following items thor (where applicable) has been applied. Labs Laboratory Tests Test 06/08/18 12:45 06/08/18 13:30 06/08/18 21:05 06/09/18 05:25 White Blood Count 15.5 x10^3/uL (4.0-11.0) 10.7 x10^3/uL (4.0-11.0) Red Blood Count 3.94 x10^6/uL (3.50-5.40) 3.47 x10^6/uL (3.50-5.40) Hemoglobin 11.3 g/dL (12.0-15.5) 10.2 g/dL (12.0-15.5) Hematocrit 35.0 % (36.0-47.0) 30.4 % (36.0-47.0) Mean Corpuscular Volume 89 fL (79-100) 88 fL (79-100) Mean Corpuscular Hemoglobin 29 pg (25-35) 29 pg (25-35) Mean Corpuscular Hemoglobin Concent 33 g/dL (31-37) 33 g/dL (31-37) Red Cell Distribution Width 14.9 % (11.5-14.5) 14.7 % (11.5-14.5) Platelet Count 105 x10^3/uL (140-400) 86 x10^3/uL (140-400) Neutrophils (%) (Auto) 91 % (31-73) 84 % (31-73) Lymphocytes (%) (Auto) 4 % (24-48) 9 % (24-48) Monocytes (%) (Auto) 6 % (0-9) 8 % (0-9) Eosinophils (%) (Auto) 0 % (0-3) 0 % (0-3) Basophils (%) (Auto) 0 % (0-3) 0 % (0-3) Neutrophils # (Auto) 14.0 x10^3uL (1.8-7.7) 8.9 x10^3uL (1.8-7.7) Lymphocytes # (Auto) 0.6 x10^3/uL (1.0-4.8) 0.9 x10^3/uL (1.0-4.8) Monocytes # (Auto) 0.8 x10^3/uL (0.0-1.1) 0.8 x10^3/uL (0.0-1.1) Eosinophils # (Auto) 0.0 x10^3/uL (0.0-0.7) 0.0 x10^3/uL (0.0-0.7) Basophils # (Auto) 0.0 x10^3/uL (0.0-0.2) 0.0 x10^3/uL (0.0-0.2) Segmented Neutrophils % 97 % (35-66) Lymphocytes % 2 % (24-48) Monocytes % 1 % (0-10) Platelet Estimate Decreased (ADEQUATE) Anisocytosis Slight Prothrombin Time 16.1 SEC (11.7-14.0) Prothromb Time International Ratio 1.4 (0.8-1.1) Sodium Level 142 mmol/L (136-145) 142 mmol/L (136-145) Potassium Level 2.8 mmol/L (3.5-5.1) 3.1 mmol/L (3.5-5.1) 3.0 mmol/L (3.5-5.1) Chloride Level 99 mmol/L (98-107) 105 mmol/L (98-107) Carbon Dioxide Level 29 mmol/L (21-32) 27 mmol/L (21-32) Anion Gap 14 (6-14) 10 (6-14) Blood Urea Nitrogen 22 mg/dL (7-20) 20 mg/dL (7-20) Creatinine 1.6 mg/dL (0.6-1.0) 0.9 mg/dL (0.6-1.0) Estimated GFR (Cockcroft-Gault) 37.4 72.7 BUN/Creatinine Ratio 14 (6-20) Glucose Level 133 mg/dL (70-99) 97 mg/dL (70-99) Calcium Level 8.3 mg/dL (8.5-10.1) 8.1 mg/dL (8.5-10.1) Magnesium Level 1.7 mg/dL (1.8-2.4) 2.1 mg/dL (1.8-2.4) Total Bilirubin 1.7 mg/dL (0.2-1.0) Aspartate Amino Transf (AST/SGOT) 34 U/L (15-37) Alanine Aminotransferase (ALT/SGPT) 29 U/L (14-59) Alkaline Phosphatase 97 U/L (46-116) Troponin I Quantitative < 0.017 ng/mL (0.000-0.055) AF-Leq-O-Type Natriuretic Peptide 443 pg/mL (0-449) Total Protein 7.1 g/dL (6.4-8.2) Albumin 2.8 g/dL (3.4-5.0) Albumin/Globulin Ratio 0.7 (1.0-1.7) Thyroid Stimulating Hormone (TSH) 3.521 uIU/mL (0.358-3.74) Urine Collection Type U cath Urine Color [place] Urine Clarity Cloudy Urine pH 6.0 Urine Specific [place] 1.025 Urine Protein 100 mg/dL (NEG-TRACE) Urine Glucose (UA) Negative mg/dL (NEG) Urine Ketones (Stick) Trace mg/dL (NEG) Urine Blood Moderate (NEG) Urine Nitrite Negative (NEG) Urine Bilirubin Small (NEG) Urine Urobilinogen Dipstick 1.0 mg/dL (0.2 mg/dL) Urine Leukocyte Esterase Small (NEG) Urine RBC 0 /HPF (0-2) Urine WBC Rare /HPF (0-4) Urine Squamous Epithelial Cells Occ /LPF Urine Bacteria 0 /HPF (0-FEW) Urine Hyaline Casts Occasional /HPF Urine Mucus Mod /LPF Urine Opiates Screen Neg (NEG) Urine Methadone Screen Neg (NEG) Urine Barbiturates Neg (NEG) Urine Phencyclidine Screen Neg (NEG) Urine Amphetamine/Methamphetamine Neg (NEG) Urine Benzodiazepines Screen Neg (NEG) Urine Cocaine Screen Neg (NEG) Urine Cannabinoids Screen Neg (NEG) Urine Ethyl Alcohol Neg (NEG) Uric Acid 5.1 mg/dL (2.6-6.0) Creatine Kinase 81 U/L (26-192) Vitamin B12 Level 657 pg/mL (247-911) Triglycerides Level 64 mg/dL (0-150) Cholesterol Level 109 mg/dL (0-200) LDL Cholesterol, Calculated 77 mg/dL (0-100) VLDL Cholesterol, Calculated 13 mg/dL (0-40) Non-HDL Cholesterol Calculated 90 mg/dL (0-129) HDL Cholesterol 19 mg/dL (40-60) Cholesterol/HDL Ratio 5.7 Test 06/10/18 08:25 White Blood Count 9.4 x10^3/uL (4.0-11.0) Red Blood Count 3.39 x10^6/uL (3.50-5.40) Hemoglobin 10.0 g/dL (12.0-15.5) Hematocrit 29.6 % (36.0-47.0) Mean Corpuscular Volume 87 fL (79-100) Mean Corpuscular Hemoglobin 30 pg (25-35) Mean Corpuscular Hemoglobin Concent 34 g/dL (31-37) Red Cell Distribution Width 14.6 % (11.5-14.5) Platelet Count 101 x10^3/uL (140-400) Neutrophils (%) (Auto) 79 % (31-73) Lymphocytes (%) (Auto) 13 % (24-48) Monocytes (%) (Auto) 8 % (0-9) Eosinophils (%) (Auto) 0 % (0-3) Basophils (%) (Auto) 0 % (0-3) Neutrophils # (Auto) 7.5 x10^3uL (1.8-7.7) Lymphocytes # (Auto) 1.2 x10^3/uL (1.0-4.8) Monocytes # (Auto) 0.7 x10^3/uL (0.0-1.1) Eosinophils # (Auto) 0.0 x10^3/uL (0.0-0.7) Basophils # (Auto) 0.0 x10^3/uL (0.0-0.2) Sodium Level 139 mmol/L (136-145) Potassium Level 2.6 mmol/L (3.5-5.1) Chloride Level 101 mmol/L (98-107) Carbon Dioxide Level 29 mmol/L (21-32) Anion Gap 9 (6-14) Blood Urea Nitrogen 10 mg/dL (7-20) Creatinine 0.9 mg/dL (0.6-1.0) Estimated GFR (Cockcroft-Gault) 72.7 Glucose Level 97 mg/dL (70-99) Calcium Level 8.2 mg/dL (8.5-10.1) Laboratory Tests Test 06/10/18 08:25 White Blood Count 9.4 x10^3/uL (4.0-11.0) Red Blood Count 3.39 x10^6/uL (3.50-5.40) Hemoglobin 10.0 g/dL (12.0-15.5) Hematocrit 29.6 % (36.0-47.0) Mean Corpuscular Volume 87 fL (79-100) Mean Corpuscular Hemoglobin 30 pg (25-35) Mean Corpuscular Hemoglobin Concent 34 g/dL (31-37) Red Cell Distribution Width 14.6 % (11.5-14.5) Platelet Count 101 x10^3/uL (140-400) Neutrophils (%) (Auto) 79 % (31-73) Lymphocytes (%) (Auto) 13 % (24-48) Monocytes (%) (Auto) 8 % (0-9) Eosinophils (%) (Auto) 0 % (0-3) Basophils (%) (Auto) 0 % (0-3) Neutrophils # (Auto) 7.5 x10^3uL (1.8-7.7) Lymphocytes # (Auto) 1.2 x10^3/uL (1.0-4.8) Monocytes # (Auto) 0.7 x10^3/uL (0.0-1.1) Eosinophils # (Auto) 0.0 x10^3/uL (0.0-0.7) Basophils # (Auto) 0.0 x10^3/uL (0.0-0.2) Sodium Level 139 mmol/L (136-145) Potassium Level 2.6 mmol/L (3.5-5.1) Chloride Level 101 mmol/L (98-107) Carbon Dioxide Level 29 mmol/L (21-32) Anion Gap 9 (6-14) Blood Urea Nitrogen 10 mg/dL (7-20) Creatinine 0.9 mg/dL (0.6-1.0) Estimated GFR (Cockcroft-Gault) 72.7 Glucose Level 97 mg/dL (70-99) Calcium Level 8.2 mg/dL (8.5-10.1) Microbiology 06/08/18 Blood Culture - Preliminary, Resulted NO GROWTH AFTER 1 DAY Medications Current Medications Sodium Chloride 1,000 ml @ 1,000 mls/hr 1X ONCE IV Last administered on at 13:27; Start 06/08/18 at 11:30; Stop 06/08/18 at 12:29; Status DC Potassium Chloride (KCl Oral Soln) 40 meq 1X ONCE PO Last administered on 06/08at 13:38; Start 06/08/18 at 13:30; Stop 06/08/18 at 13:31; Status DC Ondansetron HCl (Zofran) 4 mg PRN Q8HRS PRN IV NAUSEA/VOMITING; Start 06/08/18 at 16:00; Stop 06/09/18 at 15:59; Status DC Acetaminophen (Tylenol) 650 mg PRN Q4HRS PRN PO FEVER; Start 06/08/18 at 16:00 ; Stop 06/09/18 at 15:59; Status DC Potassium Chloride/Sodium Chloride 1,000 ml @ 75 mls/hr 1X ONCE IV Last administered on 06/08/18at 16:38; Start 06/08/18 at 16:00; Stop 06/09/18 at 05:19 ; Status DC Ceftriaxone Sodium 50 ml @ 100 mls/hr 1X ONCE IV ; Start 06/08/18 at 16:15; Stop 06/08/18 at 16:44; Status UNV Ceftriaxone Sodium (Rocephin) 1 gm 1X ONCE IVP Last administered on 06/08/18at 16:37; Start 06/08/18 at 16:30; Stop 06/08/18 at 16:31; Status DC Magnesium Sulfate 50 ml @ 25 mls/hr 1X ONCE IV Last administered on 06/08/18at 17:03; Start 06/08/18 at 17:00; Stop 06/08/18 at 18:59; Status DC Ceftriaxone Sodium (Rocephin) 1 gm Q24H IVP Last administered on 06/09/18at 18: 36; Start 06/09/18 at 16:30 Sodium Chloride 1,000 ml @ 85 mls/hr [id number] IV Last administered on at 09:08; Start 06/08/18 at 16:30 Fentanyl Citrate (Fentanyl 2ml Vial) 25 mcg PRN Q3HRS PRN IV PAIN MODERATE; Start 06/08/18 at 16:30 Fentanyl Citrate (Fentanyl 2ml Vial) 50 mcg PRN Q3HRS PRN IV PAIN SEVERE Last administered on 06/10/18at 04:06; Start 06/08/18 at 16:30 Magnesium Sulfate/ Dextrose 100 ml @ 100 mls/hr 1X ONCE IV ; Start 06/08/18 at 16:30; Stop 06/08/18 at 17:29; Status UNV Lisinopril (Prinivil) 20 mg DAILYWSUP PO Last administered on 06/09/18at 18:22; Start 06/09/18 at 17:00 Metoprolol Succinate (Toprol Xl) 100 mg DAILY PO Last administered on at 09:07; Start 06/09/18 at 09:00 Nitroglycerin (Nitrostat) 0.4 mg PRN Q5MIN PRN SL CHEST PAIN; Start 06/08/18 at 17:15 Amlodipine Besylate (Norvasc) 2.5 mg BID PO Last administered on 06/10/18at 09: 09; Start 06/08/18 at 21:00 Fluticasone Propionate (Flonase) 2 spray DAILY NS ; Start 06/09/18 at 09:00 Memantine (Namenda) 10 mg BID PO Last administered on 06/10/18at 09:07; Start 06/08/18 at 21:00 Pantoprazole Sodium (Protonix) 40 mg DAILYAC PO Last administered on 06/10/18at 09:07; Start 06/09/18 at 07:30 Non-Formulary Medication (Ranitidine Hcl ) 150 mg DAILY PO ; Start 06/09/18 at 09:00; Status UNV Sucralfate (Carafate) 1 gm TIDWMEALHC PO Last administered on 06/10/18at 09:07; Start 06/08/18 at 17:30 Enoxaparin Sodium (Lovenox 30mg Syringe) 30 mg Q24H SQ Last administered on 06/09/18at 20:52; Start 06/08/18 at 21:00 Aspirin (Children'S Aspirin) 81 mg DAILYWBKFT PO Last administered on at 09:06; Start 06/09/18 at 08:00 Lactobacillus Rhamnosus (Culturelle) 1 cap BID PO Last administered on at 09:07; Start 06/09/18 at 09:00 Potassium Chloride (Klor-Con) 40 meq 1X ONCE PO ; Start 06/09/18 at 11:00; Stop 06/09/18 at 11:01; Status DC Potassium Chloride (Klor-Con) 40 meq 1X ONCE PO Last administered on at 11:16; Start 06/09/18 at 10:30; Stop 06/09/18 at 10:31; Status DC Potassium Chloride (KCl Oral Soln) 40 meq Q4H PO Last administered on at 09:06; Start 06/10/18 at 08:00; Stop 06/10/18 at 12:01 Active Scripts Active Reported Ranitidine Hcl 150 Mg Capsule 150 Mg PO DAILY Amlodipine Besylate 2.5 Mg Tablet 2.5 Mg PO BID Namenda (Memantine Hcl) 10 Mg Tablet 1 Tab PO BID Flonase Allergy Relief (Fluticasone Propionate) 9.9 Ml White Post.susp 2 Sprays NS DAILY NITROGLYCERIN SubLingual (Nitroglycerin) 0.4 Mg Tab.subl 0.4 Mg SL PRN Q5MIN PRN Omeprazole 40 Mg Capsule.dr 1 Cap PO DAILY Lisinopril 20 Mg Tablet 20 Mg PO DAILYWSUP Alprazolam 0.5 Mg Tablet 1 Tab PO BID Sucralfate 1 Gm/10 Ml Oral.susp 1 Gm PO TIDWMEALHC Toprol Xl (Metoprolol Succinate) 100 Mg Tab.er.24h 1 Tab PO DAILY Vitals/I & O Vital Sign - Last 24 Hours 06/09/18 06/09/18 06/09/18 06/09/18 18:22 19:20 20:21 20:53 Temp 98.8 98.8 Pulse 96 103 100 Resp 18 B/P (MAP) 174/78 139/73 (95) 139/73 Pulse Ox 97 O2 Delivery Room Air Room Air 06/09/18 06/10/18 06/10/18 06/10/18 23:20 03:25 04:06 04:36 Temp 100.0 98.1 100.0 98.1 Pulse 92 129 Resp 18 19 B/P (MAP) 124/60 (81) 154/86 (108) Pulse Ox 99 99 O2 Delivery Room Air Room Air Room Air Room Air 06/10/18 06/10/18 06/10/18 06/10/18 07:00 08:00 09:07 09:09 Temp 97.6 97.6 Pulse 85 85 85 Resp 18 B/P (MAP) 134/82 (99) 134/82 134/82 Pulse Ox 96 O2 Delivery Room Air Room Air Intake and Output 06/09/18 06/09/18 06/10/18 15:00 23:00 07:00 Intake Total 150 ml 100 ml Output Total 400 ml Balance 150 ml -300 ml WILLIAM CHRISTIAN III DO Jun 10, 2018 11:32
[2018-06-10] MEDS ORDERED: MAGNESIUM SULFATE 2GM 50 ML IV ONE (12:00)
[2018-06-10 15:00] VITALS: BP 145/77
--- NOTE | 2018-06-10 16:53 | PDOC ---
PROGRESS NOTES Assessment Assessment Metabolic encephalopathy. Generalized weakness x 3 weeks. LE pain. Cellulitis, LE. Leukocytosis. Fever. Hypokalemia, K 2.8. HTN. CAD s/p stent. Renal failure. Dementia features. No evidence of acute CVA this time. RECOMMENDATIONS/PLAN: ASA 81 mg daily. Correct electrolytes imbalances. Treat medical diseases. Consulted ID for cellulitis. Discussed with her daughter, son and grand daughter in detail at bedside on 06/09. EEG on 06/09/18: Encephalopathy. HISTORY OF THE PRESENT ILLNESS: 82-y-old AA female patient with above medical diseases has been having symptoms of generalized weakness for about 3 weeks difficult for physical activities. Her family also noted her mental status changes not acting like herself. She complained pain in her bilateral LE and left hip area. PAST MEDICAL HISTORY Past Medical History Cardiovascular: CAD, HTN, Hyperlipidemia CENTRAL NERVOUS SYSTEM: CVA, Dementia GI: GERD Musculoskeletal: Osteoarthritis Neurology: dementia PAST SURGICAL HISTORY Total hip replacement (bilateral), Hysterectomy, Other (PCI/stent, lumbar fusion ) FAMILY HISTORY Noncontributory. SOCIAL HISTORY Smoke: No ALCOHOL: none Drugs: None Lives: with Family ALLERGY: NKDA MEDICATIONS: Refer to MAR REVIEW OF SYSTEMS: Constitutional: No cachexia. Head: No traumatic brain or head injury. Skin: No edema, or rash. Ear: No infection. Eyes: No vision loss or color blindness. Nose: No bleeding or purulent discharges. Hearing: Hearing decrease. Neck: No injury. Breast: No history of cancer, masses,or discharges. Cardiac: CAD, s/p stent. HTN. Pulmonary: No COPD. GI: No GI ulcer, GI bleeding. Urinary/genital: UTI. Endocrinologic: No cousin face, craniofacial dysmorphism, polydactyly. Skeletomuscular: Generalized weakness. Neurological: see HP. Psychiatric: Denies drug use/abuse. Otherwise, not [id number] review of systems. PHYSICAL EXAMINATION: General appearance is in subacute distress. HEENT: Normocephalic and nontraumatic. Eyes, nose, ears, and throat are unremarkable. Neck is supple. No lymphadenopathy. No crepitus. Cardiovascular: S1, S2, regular rate and rhythm. Pulmonary: Clear to auscultation bilaterally. Abdomen: Bowel sounds are positive. Abdomen is soft, nontender, and nondistended. Extremities: No rash, lesions. No restriction of range of motion NEUROLOGICAL EXAMINATION: Awake. Not oriented to time, place but knew person. PERRL. EOMI. CN: no focal findings. Muscle tone: within normal. Muscle strength: 4 UE, not able to access LE due to pain especially pain in right foot. DTR: 2 UE, 1 at knee. Plantar reflex: Neutral response bilaterally Gait: Not able to walk. Sensory exam: no abnormal findings. No cerebellar signs elicited. F-T-N test fine. Objective Objective Vital Signs Date Time Temp Pulse Resp B/P (MAP) Pulse Ox O2 Delivery O2 Flow Rate FiO2 06/10/18 15:00 98.2 92 12 145/77 (99) 98 Room Air 98.2 Intake and Output 06/10/18 07:00 Intake Total 250 ml Output Total 400 ml Balance -150 ml Intake Oral 250 ml Output Urine Total 400 ml # Voids 8 Vitals Signs Vitals VS - Last 72 Hours, by Label Date Time Temp Pulse Resp B/P (MAP) Pulse Ox O2 Delivery O2 Flow Rate FiO2 06/10/18 15:00 98.2 92 12 145/77 (99) 98 Room Air 98.2 06/10/18 11:00 98.6 72 18 152/79 (103) 97 Room Air 98.6 06/10/18 09:09 85 134/82 06/10/18 09:07 85 134/82 06/10/18 08:00 Room Air 06/10/18 07:00 97.6 85 18 134/82 (99) 96 Room Air 97.6 06/10/18 04:36 Room Air 06/10/18 04:06 Room Air 06/10/18 03:25 98.1 129 19 154/86 (108) 99 Room Air 98.1 06/09/18 23:20 100.0 92 18 124/60 (81) 99 Room Air 100.0 06/09/18 20:53 100 139/73 06/09/18 20:21 Room Air 06/09/18 19:20 98.8 103 18 139/73 (95) 97 Room Air 98.8 06/09/18 18:22 96 174/78 06/09/18 10:45 100.3 96 16 174/78 (110) 93 Room Air 100.3 06/09/18 09:05 100 173/82 06/09/18 09:05 100 173/82 06/09/18 08:00 Room Air 06/09/18 07:00 98.7 91 16 173/82 (112) 97 Room Air 98.7 Laboratory Laboratory Laboratory Tests Test 06/10/18 08:25 White Blood Count 9.4 x10^3/uL (4.0-11.0) Red Blood Count 3.39 x10^6/uL (3.50-5.40) Hemoglobin 10.0 g/dL (12.0-15.5) Hematocrit 29.6 % (36.0-47.0) Mean Corpuscular Volume 87 fL (79-100) Mean Corpuscular Hemoglobin 30 pg (25-35) Mean Corpuscular Hemoglobin Concent 34 g/dL (31-37) Red Cell Distribution Width 14.6 % (11.5-14.5) Platelet Count 101 x10^3/uL (140-400) Neutrophils (%) (Auto) 79 % (31-73) Lymphocytes (%) (Auto) 13 % (24-48) Monocytes (%) (Auto) 8 % (0-9) Eosinophils (%) (Auto) 0 % (0-3) Basophils (%) (Auto) 0 % (0-3) Neutrophils # (Auto) 7.5 x10^3uL (1.8-7.7) Lymphocytes # (Auto) 1.2 x10^3/uL (1.0-4.8) Monocytes # (Auto) 0.7 x10^3/uL (0.0-1.1) Eosinophils # (Auto) 0.0 x10^3/uL (0.0-0.7) Basophils # (Auto) 0.0 x10^3/uL (0.0-0.2) Sodium Level 139 mmol/L (136-145) Potassium Level 2.6 mmol/L (3.5-5.1) Chloride Level 101 mmol/L (98-107) Carbon Dioxide Level 29 mmol/L (21-32) Anion Gap 9 (6-14) Blood Urea Nitrogen 10 mg/dL (7-20) Creatinine 0.9 mg/dL (0.6-1.0) Estimated GFR (Cockcroft-Gault) 72.7 Glucose Level 97 mg/dL (70-99) Calcium Level 8.2 mg/dL (8.5-10.1) Magnesium Level 1.7 mg/dL (1.8-2.4) Microbiology 06/08/18 Blood Culture - Preliminary, Resulted NO GROWTH AFTER 1 DAY Medication Medications Current Medications Enoxaparin Sodium (Lovenox 40mg Syringe) 40 mg Q24H SQ ; Start 06/10/18 at 21:00 Lisinopril (Prinivil) 20 mg DAILYWSUP PO Last administered on 06/09/18at 18:22; Start 06/09/18 at 17:00 Magnesium Sulfate 50 ml @ 25 mls/hr 1X ONCE IV Last administered on 06/10/18at 13:23; Start 06/10/18 at 12:00; Stop 06/10/18 at 13:59; Status DC Potassium Chloride (KCl Oral Soln) 40 meq Q4H PO Last administered on at 12:57; Start 06/10/18 at 08:00; Stop 06/10/18 at 12:01; Status DC Comment Review of Relevant I have reviewed the following items thor (where applicable) has been applied. ORA GRIFFITHS MD Jun 10, 2018 16:53
[2018-06-10] MEDS: LISINOPRIL 20 MG TABLET PO SCH (17:15)
[2018-06-10] MEDS: cefTRIAXone IV Push 1 GM VIAL. IVP SCH (17:19)
[2018-06-10 19:15] VITALS: BP 185/96
[2018-06-10] MEDS ORDERED: ENOXAPARIN 40 MG/0.4 ML SYRINGE. SQ SCH (21:00)
[2018-06-10 23:20] VITALS: BP 157/85
[2018-06-11 03:20] VITALS: BP 134/84
[2018-06-11 07:00] VITALS: BP 140/80
[2018-06-11 08:15] LABS: BASO % 0 % (0-3); EOS % 1 % (0-3); HEMATOCRIT 26.6 % (36.0-47.0); HEMOGLOBIN 9.1 g/dL (12.0-15.5); LYMPH % 16 % (24-48); MEAN CORPUSCULAR HEMOGLOBIN 29 pg (25-35); MEAN CORPUSCULAR HGB CONC 34 g/dL (31-37); MEAN CORPUSCULAR VOLUME 86 fL (79-100); MONO # 0.5 x10^3/uL (0.0-1.1); MONO % 7 % (0-9); NEUT # 5.2 x10^3uL (1.8-7.7); NEUT % 76 % (31-73); PLATELET COUNT 107 x10^3/uL (140-400); RED BLOOD COUNT 3.08 x10^6/uL (3.50-5.40); RED CELL DISTRIBUTION WIDTH 14.9 % (11.5-14.5); WHITE BLOOD COUNT 6.8 x10^3/uL (4.0-11.0)
[2018-06-11 08:41] LABS: CALCIUM 8.3 mg/dL (8.5-10.1); CREATININE 0.6 mg/dL (0.6-1.0); GFR 116.1; POTASSIUM 3.1 mmol/L (3.5-5.1)
[2018-06-11] MEDS: IV NORMAL SALINE 1000ML BAG 1,000 ML IV SCH (09:00)
[2018-06-11] MEDS: FLUTICASONE 50MCG/NASAL SPRAY 16GM BOTTLE. NS SCH (09:00)
--- NOTE | 2018-06-11 09:04 | PDOC ---
Infectious Disease Note Vital Sign Vital Signs Vital Signs Date Time Temp Pulse Resp B/P (MAP) Pulse Ox O2 Delivery O2 Flow Rate FiO2 06/11/18 07:00 98.1 90 18 140/80 (100) 96 Room Air 98.1 Labs Lab Laboratory Tests Test 06/11/18 06:43 White Blood Count 6.8 x10^3/uL (4.0-11.0) Red Blood Count 3.08 x10^6/uL (3.50-5.40) Hemoglobin 9.1 g/dL (12.0-15.5) Hematocrit 26.6 % (36.0-47.0) Mean Corpuscular Volume 86 fL (79-100) Mean Corpuscular Hemoglobin 29 pg (25-35) Mean Corpuscular Hemoglobin Concent 34 g/dL (31-37) Red Cell Distribution Width 14.9 % (11.5-14.5) Platelet Count 107 x10^3/uL (140-400) Neutrophils (%) (Auto) 76 % (31-73) Lymphocytes (%) (Auto) 16 % (24-48) Monocytes (%) (Auto) 7 % (0-9) Eosinophils (%) (Auto) 1 % (0-3) Basophils (%) (Auto) 0 % (0-3) Neutrophils # (Auto) 5.2 x10^3uL (1.8-7.7) Lymphocytes # (Auto) 1.0 x10^3/uL (1.0-4.8) Monocytes # (Auto) 0.5 x10^3/uL (0.0-1.1) Eosinophils # (Auto) 0.0 x10^3/uL (0.0-0.7) Basophils # (Auto) 0.0 x10^3/uL (0.0-0.2) Sodium Level 138 mmol/L (136-145) Potassium Level 3.1 mmol/L (3.5-5.1) Chloride Level 102 mmol/L (98-107) Carbon Dioxide Level 27 mmol/L (21-32) Anion Gap 9 (6-14) Blood Urea Nitrogen 6 mg/dL (7-20) Creatinine 0.6 mg/dL (0.6-1.0) Estimated GFR (Cockcroft-Gault) 116.1 Glucose Level 92 mg/dL (70-99) Calcium Level 8.3 mg/dL (8.5-10.1) Micro Microbiology 06/08/18 Blood Culture - Preliminary, Resulted NO GROWTH AFTER 2 DAYS 06/08/18 Urine Culture - Final, Complete 06/08/18 Urine Culture Result 1 (ABHISHEK) - Final, Complete Objective Assessment Rt ankle swelling and redness, ? cellulitis, ? pseudogout Encephalopathy HTN CAD CVA Dementia Plan Plan of Care cont rocephine leg elevation anti inflammatory meds/steroids pt/ot MACO MICHELE MD Jun 11, 2018 09:04
[2018-06-11] MEDS ORDERED: POTASSIUM CHLORIDE 20 MEQ TABLET.ER. PO ONE (09:15)
[2018-06-11] MEDS: ASPIRIN CHEWABLE 81 MG TABLET. PO SCH (09:21)
[2018-06-11] MEDS: SUCRALFATE 1 GM TABLET. PO SCH ×2 (09:21→12:07)
[2018-06-11] MEDS: LACTOBACILLUS RHAMNOSUS GG 1 CAPSULE. PO SCH (09:21)
[2018-06-11] MEDS: PANTOPRAZOLE 40 MG TABLET.DR. PO SCH (09:21)
[2018-06-11] MEDS: MEMANTINE 10 MG TABLET. PO SCH (09:22)
[2018-06-11] MEDS: amLODIPine BESYLATE 5 MG TABLET PO SCH (09:22)
[2018-06-11] MEDS: METOPROLOL SUCC 24HR ER 100 MG TAB.ER.24H. PO SCH (09:22)
[2018-06-11] MEDS ORDERED: POTASSIUM CHLORIDE 20 MEQ/15 ML ORAL LIQUID. PEG ONE (10:30)
--- NOTE | 2018-06-11 10:31 | CONS ---
DATE OF CONSULTATION: 06/11/2018 REQUESTING PHYSICIAN: Dr. Garvin. REASON FOR CONSULTATION: Ankle cellulitis. HISTORY OF PRESENT ILLNESS: This is an 82-year-old -[place] female who came in with an altered mental status, weakness, fall, poor intake, not feeling well. The main complaint that now she has is swelling of the ankle and redness with significant pain including the pain in the knee and is unable to walk because of the pain. The patient says this has been going on for several months. When she came in, initially she had a temperature of 100.6. She has been afebrile now. The patient also had leukocytosis up to 15,000 white count, which is now back to normal. They have been struggling with potassium and magnesium replacements and the patient is receiving Rocephin. All cultures are negative so far. The patient denies any nausea, vomiting. Denies any diarrhea, denies any chest pain, shortness of breath, abdominal pain. She does continue to complain of significant leg pain, knee pain, ankle pain, swelling of the ankle and redness of the right ankle. PAST MEDICAL HISTORY: Positive for gastroesophageal reflux disease, hypertension, CVA, anxiety disorder, dementia. She has had coronary artery disease with cardiac stent done in the past, hip replacement, hysterectomy, hyperlipidemia. SOCIAL HISTORY: Negative for smoking, alcohol or illicit drug use. The patient lives with her daughter at home. ALLERGIES: No known drug allergies. CURRENT MEDICATIONS: The patient is on Rocephin. REVIEW OF SYSTEMS: As per HPI, all other systems reviewed are negative. PHYSICAL EXAMINATION: GENERAL: Alert, oriented female, not in distress. VITAL SIGNS: Stable, afebrile. HEENT: NAD. NECK: Supple, no JVP, no lymphadenopathy. LUNGS: Clear. HEART: S1, S2 regular. ABDOMEN: Benign. EXTREMITIES: The knee has no swelling. The ankle is significantly swollen bilaterally, more so on the right than the left and redness of both the ankles, much more so on the right than the left. There is no open area. There is no typical look for cellulitis, but clearly this is a bright red on the right ankle. NEUROLOGIC: Intact, but very weak and debilitated. LABORATORY DATA: White count is 6.8, hemoglobin 9.1, platelets of 107,000. BUN and creatinine is normal. Potassium is 3.1. Urinalysis unremarkable. Her blood cultures and urine cultures are negative. IMAGING STUDIES: All the x-rays and CT reviewed and ultrasound. IMPRESSION: 1. Bilateral ankle swelling with redness of unclear etiology. This is not typical cellulitis, but also if she is correct as she says this has been going on for months, then it cannot be gout or pseudogout. The only other explanation remains is she may have twisted as she fell before coming in. Unless she is not accurate in her timeline, then this could be gout or pseudogout. 2. At presentation, she had fever and leukocytosis, which has improved. 3. Debility and self-care problem. 4. Cerebrovascular accident. 5. Coronary artery disease. RECOMMENDATIONS: We will get sed rate. We will get procalcitonin. We will continue Rocephin. Probably one should consider giving a trial of Medrol Dosepak and/or having Ortho or Radiology put a needle into the joint to get the fluid. Supportive care and we will continue to follow. Thank you very much, Dr. Perez, for giving me the opportunity to participate in this patient's care. MACO MICHELE MD DR: MILTON/karl JOB#: [id number] / [id number]
--- NOTE | 2018-06-11 10:36 | PDOC ---
CARDIO Progress Notes Date and Time Date of Service 06/11/2018 Time of Evaluation 0940 Subjective Subjective: No Chest Pain, No shortness of breath, No Palpitations, Other ( still has left leg tenderness) Vitals Vitals Vital Signs Date Time Temp Pulse Resp B/P (MAP) Pulse Ox O2 Delivery O2 Flow Rate FiO2 06/11/18 09:22 90 140/80 06/11/18 08:00 Room Air 06/11/18 07:00 98.1 18 96 98.1 Weight Weight [ ] Input and Output Intake and Output Intake and Output 06/11/18 07:00 Intake Total 300 ml Output Total 2700 ml Balance -2400 ml Intake Oral 300 ml Output Urine Total 2700 ml Laboratory Labs Laboratory Tests Test 06/11/18 06:43 White Blood Count 6.8 x10^3/uL (4.0-11.0) Red Blood Count 3.08 x10^6/uL (3.50-5.40) Hemoglobin 9.1 g/dL (12.0-15.5) Hematocrit 26.6 % (36.0-47.0) Mean Corpuscular Volume 86 fL (79-100) Mean Corpuscular Hemoglobin 29 pg (25-35) Mean Corpuscular Hemoglobin Concent 34 g/dL (31-37) Red Cell Distribution Width 14.9 % (11.5-14.5) Platelet Count 107 x10^3/uL (140-400) Neutrophils (%) (Auto) 76 % (31-73) Lymphocytes (%) (Auto) 16 % (24-48) Monocytes (%) (Auto) 7 % (0-9) Eosinophils (%) (Auto) 1 % (0-3) Basophils (%) (Auto) 0 % (0-3) Neutrophils # (Auto) 5.2 x10^3uL (1.8-7.7) Lymphocytes # (Auto) 1.0 x10^3/uL (1.0-4.8) Monocytes # (Auto) 0.5 x10^3/uL (0.0-1.1) Eosinophils # (Auto) 0.0 x10^3/uL (0.0-0.7) Basophils # (Auto) 0.0 x10^3/uL (0.0-0.2) Sodium Level 138 mmol/L (136-145) Potassium Level 3.1 mmol/L (3.5-5.1) Chloride Level 102 mmol/L (98-107) Carbon Dioxide Level 27 mmol/L (21-32) Anion Gap 9 (6-14) Blood Urea Nitrogen 6 mg/dL (7-20) Creatinine 0.6 mg/dL (0.6-1.0) Estimated GFR (Cockcroft-Gault) 116.1 Glucose Level 92 mg/dL (70-99) Calcium Level 8.3 mg/dL (8.5-10.1) Procalcitonin 1.37 ng/mL (0.00-0.10) Microbiology Micro Microbiology 06/08/18 Blood Culture - Preliminary, Resulted NO GROWTH AFTER 2 DAYS 06/08/18 Urine Culture - Final, Complete 06/08/18 Urine Culture Result 1 (ABHISHEK) - Final, Complete Physical Exam HEENT: Neck Supple W Full Motion Chest: Symmetric LUNGS: Other (diminished bases) Heart: RRR (SR) Extremities: Other (1+ to RLE ) Neurology: alert, follow commands, other (periods of confusion) Assessment Assessment 1. PAFIB: new onset noted yesterday, Likely from low Mg and K. Nothing further overnight after correction of lytes. 2. Diarrhea/leukocytosis: resolved 3. Nontraumatic mechanical fall with RLE swelling erythema: ID following 4. MALACHI: resolved after hydration 5. Metabolic encephalopathy with underlying dementia: better 6. HX of CAD: past stent, follow with [facility]ology 7. Prior DVT to LLE 6 months ago with coumadin 4 months: negative bilaterallly per doppler Recommendations 1. Correct K. Outpt event monitor to ascertain AFIB burden then will consider any further need for NOAC. 2 Continue ASA and toprol. 3. Follow up in office in 4 weeks. ISAURA TRENT APRN Jun 11, 2018 10:36
[2018-06-11 10:46] VITALS: BP 119/75
--- NOTE | 2018-06-11 11:44 | DISCH ---
DISCHARGE DISCHARGE INFORMATION: FINAL DIAGNOSIS Problems Medical Problems: (1) Acute on chronic renal failure Status: Acute (2) Altered mental status Status: Acute (3) Fall Status: Acute (4) Generalized weakness Status: Acute (5) Hypokalemia Status: Acute (6) Right foot pain Status: Acute CONDITION ON DISCHARGE: Stable CODE STATUS: Code Status: Full ALF: SNF STAY <30 DAYS: Yes HOSPICE: HOSPICE: No HOSPICE EVAL & TREAT: No LTAC: ADMIT TO LTAC: No POST DISCHARGE ORDERS: ACTIVITY ORDERS: Activity as tolerated WEIGHT BEARING STATUS: As tolerated DIET AFTER DISCHARGE: Cardiac CHECKS AFTER DISCHARGE: CHECKS AFTER DISCHARGE: Check blood press - daily TREATMENT/EQUIPMENT ORDERS: Physical Therapy For: Evalulation/Treatment Occupational Therapy For: Evaluation/Treatment Speech Language Pathology For: Evaluation/Treatment DISCHARGE MEDICATIONS: Home Meds Reported Medications Ranitidine Hcl (RANITIDINE HCL) 150 Mg Capsule, 150 MG PO DAILY, TAB 01/10/17 Amlodipine Besylate (AMLODIPINE BESYLATE) 2.5 Mg Tablet, 2.5 MG PO BID, TAB 01/10/17 Memantine Hcl (NAMENDA) 10 Mg Tablet, 1 TAB PO BID, #180 TAB 1 Refill 01/10/17 Fluticasone Propionate (Flonase Allergy Relief) 9.9 Ml [place].susp, 2 SPRAYS NS DAILY, BOTTLE 01/10/17 Nitroglycerin (NITROGLYCERIN SubLingual) 0.4 Mg Tab.subl, 0.4 MG SL PRN Q5MIN PRN for CHEST PAIN, BOTTLE 01/10/17 Omeprazole (OMEPRAZOLE) 40 Mg Capsule.dr, 1 CAP PO DAILY, #30 CAP 3 Refills 01/10/17 Lisinopril (LISINOPRIL) 20 Mg Tablet, 20 MG PO DAILYWSUP for FOR HYPERTENSION, # 30 TAB 0 Refills 01/10/17 Alprazolam (ALPRAZOLAM) 0.5 Mg Tablet, 1 TAB PO BID, #60 TAB 01/10/17 Sucralfate (SUCRALFATE) 1 Gm/10 Ml [place].susp, 1 GM PO TIDWMEALHC, MISC 01/10/17 Metoprolol Succinate (TOPROL XL) 100 Mg Tab.er.24h, 1 TAB PO DAILY, #30 TAB 5 Refills 01/10/17 WILLIAM CHRISTIAN III DO Jun 11, 2018 11:44
--- NOTE | 2018-06-11 12:29 | PDOC ---
PROGRESS NOTES Chief Complaint Chief Complaint AMS, RLE cellulitis History of Present Illness History of Present Illness Pt seen at bedside today, she is sitting up and pleasantly confused, appears to be some confabulation when talking, could not provide correct year. Pt continues to have erythema and increased swelling seen on examination of RLE top of foot, consult orthopedics. Current events include Afib rate 140's currently 92, cardiology following. Pt has IV antibiotics hanging. potassium repletion for hypokalemia 3.1 refractory to repletion, hypomagnesia 1.7 replacing. lovenox, norvasc, ntg. SS: talked with family and they wish for her to go to [facility] , will DC to health resort of when stable. Pt has a history of DVT 4-6 mo ago on was on coumadin 4 months. LE US 06/08 was negative for DVT. Cardiology is following Echo 06/09 EF 60% DW- RN Followed by cardio, neuro, ortho Vitals Vitals Vital Signs Date Time Temp Pulse Resp B/P (MAP) Pulse Ox O2 Delivery O2 Flow Rate FiO2 06/11/18 10:46 98.3 92 18 119/75 (90) 98 Room Air 98.3 Physical Exam General: Alert, Cooperative, No acute distress, Other (pleasantly confused, not oriented to year, some confabulation when talking) Heart: Regular rate, Normal S1, No murmurs Lungs: Clear Abdomen: Soft, No tenderness Extremities: No cyanosis, No edema Skin: No breakdown, Other (erythema and swelling on top aspect of Rt foot) Labs LABS Laboratory Tests Test 06/11/18 06:43 White Blood Count 6.8 x10^3/uL (4.0-11.0) Red Blood Count 3.08 x10^6/uL (3.50-5.40) Hemoglobin 9.1 g/dL (12.0-15.5) Hematocrit 26.6 % (36.0-47.0) Mean Corpuscular Volume 86 fL (79-100) Mean Corpuscular Hemoglobin 29 pg (25-35) Mean Corpuscular Hemoglobin Concent 34 g/dL (31-37) Red Cell Distribution Width 14.9 % (11.5-14.5) Platelet Count 107 x10^3/uL (140-400) Neutrophils (%) (Auto) 76 % (31-73) Lymphocytes (%) (Auto) 16 % (24-48) Monocytes (%) (Auto) 7 % (0-9) Eosinophils (%) (Auto) 1 % (0-3) Basophils (%) (Auto) 0 % (0-3) Neutrophils # (Auto) 5.2 x10^3uL (1.8-7.7) Lymphocytes # (Auto) 1.0 x10^3/uL (1.0-4.8) Monocytes # (Auto) 0.5 x10^3/uL (0.0-1.1) Eosinophils # (Auto) 0.0 x10^3/uL (0.0-0.7) Basophils # (Auto) 0.0 x10^3/uL (0.0-0.2) Erythrocyte Sedimentation Rate 126 (0-25) Sodium Level 138 mmol/L (136-145) Potassium Level 3.1 mmol/L (3.5-5.1) Chloride Level 102 mmol/L (98-107) Carbon Dioxide Level 27 mmol/L (21-32) Anion Gap 9 (6-14) Blood Urea Nitrogen 6 mg/dL (7-20) Creatinine 0.6 mg/dL (0.6-1.0) Estimated GFR (Cockcroft-Gault) 116.1 Glucose Level 92 mg/dL (70-99) Calcium Level 8.3 mg/dL (8.5-10.1) Procalcitonin 1.37 ng/mL (0.00-0.10) Review of Systems Review of Systems General: Denies fever, chills night sweats Cardio: Afib, denies chest pain, palpitations Pulm; Denies soa, cough Assessment and Plan Assessmemt and Plan Assessment Acute on chronic renal failure Cr 0.6 Altered mental status UTI vs dementia vs metabolic encephalopathy Afib Fall Generalized weakness Hypokalemia 3.1 refractory to replacement Hypomagnesia 1.7 Right foot pain- cellulitis History of DVT 6 mo ago Plan CBC BMP Potassium repletion, swallowing precautions so change from PO to liquid Magnesium repletion Lovenox Antibiotics Cardiac monitoring VTE prophylaxis Appreciate cardiology input Appreciate Neurology input Appreciate Orthopedic input PT/OT Home meds Comment Review of Relevant I have reviewed the following items thor (where applicable) has been applied. Labs Laboratory Tests Test 06/10/18 08:25 06/11/18 06:43 White Blood Count 9.4 x10^3/uL (4.0-11.0) 6.8 x10^3/uL (4.0-11.0) Red Blood Count 3.39 x10^6/uL (3.50-5.40) 3.08 x10^6/uL (3.50-5.40) Hemoglobin 10.0 g/dL (12.0-15.5) 9.1 g/dL (12.0-15.5) Hematocrit 29.6 % (36.0-47.0) 26.6 % (36.0-47.0) Mean Corpuscular Volume 87 fL (79-100) 86 fL (79-100) Mean Corpuscular Hemoglobin 30 pg (25-35) 29 pg (25-35) Mean Corpuscular Hemoglobin Concent 34 g/dL (31-37) 34 g/dL (31-37) Red Cell Distribution Width 14.6 % (11.5-14.5) 14.9 % (11.5-14.5) Platelet Count 101 x10^3/uL (140-400) 107 x10^3/uL (140-400) Neutrophils (%) (Auto) 79 % (31-73) 76 % (31-73) Lymphocytes (%) (Auto) 13 % (24-48) 16 % (24-48) Monocytes (%) (Auto) 8 % (0-9) 7 % (0-9) Eosinophils (%) (Auto) 0 % (0-3) 1 % (0-3) Basophils (%) (Auto) 0 % (0-3) 0 % (0-3) Neutrophils # (Auto) 7.5 x10^3uL (1.8-7.7) 5.2 x10^3uL (1.8-7.7) Lymphocytes # (Auto) 1.2 x10^3/uL (1.0-4.8) 1.0 x10^3/uL (1.0-4.8) Monocytes # (Auto) 0.7 x10^3/uL (0.0-1.1) 0.5 x10^3/uL (0.0-1.1) Eosinophils # (Auto) 0.0 x10^3/uL (0.0-0.7) 0.0 x10^3/uL (0.0-0.7) Basophils # (Auto) 0.0 x10^3/uL (0.0-0.2) 0.0 x10^3/uL (0.0-0.2) Sodium Level 139 mmol/L (136-145) 138 mmol/L (136-145) Potassium Level 2.6 mmol/L (3.5-5.1) 3.1 mmol/L (3.5-5.1) Chloride Level 101 mmol/L (98-107) 102 mmol/L (98-107) Carbon Dioxide Level 29 mmol/L (21-32) 27 mmol/L (21-32) Anion Gap 9 (6-14) 9 (6-14) Blood Urea Nitrogen 10 mg/dL (7-20) 6 mg/dL (7-20) Creatinine 0.9 mg/dL (0.6-1.0) 0.6 mg/dL (0.6-1.0) Estimated GFR (Cockcroft-Gault) 72.7 116.1 Glucose Level 97 mg/dL (70-99) 92 mg/dL (70-99) Calcium Level 8.2 mg/dL (8.5-10.1) 8.3 mg/dL (8.5-10.1) Magnesium Level 1.7 mg/dL (1.8-2.4) Erythrocyte Sedimentation Rate 126 (0-25) Procalcitonin 1.37 ng/mL (0.00-0.10) Laboratory Tests Test 06/11/18 06:43 White Blood Count 6.8 x10^3/uL (4.0-11.0) Red Blood Count 3.08 x10^6/uL (3.50-5.40) Hemoglobin 9.1 g/dL (12.0-15.5) Hematocrit 26.6 % (36.0-47.0) Mean Corpuscular Volume 86 fL (79-100) Mean Corpuscular Hemoglobin 29 pg (25-35) Mean Corpuscular Hemoglobin Concent 34 g/dL (31-37) Red Cell Distribution Width 14.9 % (11.5-14.5) Platelet Count 107 x10^3/uL (140-400) Neutrophils (%) (Auto) 76 % (31-73) Lymphocytes (%) (Auto) 16 % (24-48) Monocytes (%) (Auto) 7 % (0-9) Eosinophils (%) (Auto) 1 % (0-3) Basophils (%) (Auto) 0 % (0-3) Neutrophils # (Auto) 5.2 x10^3uL (1.8-7.7) Lymphocytes # (Auto) 1.0 x10^3/uL (1.0-4.8) Monocytes # (Auto) 0.5 x10^3/uL (0.0-1.1) Eosinophils # (Auto) 0.0 x10^3/uL (0.0-0.7) Basophils # (Auto) 0.0 x10^3/uL (0.0-0.2) Erythrocyte Sedimentation Rate 126 (0-25) Sodium Level 138 mmol/L (136-145) Potassium Level 3.1 mmol/L (3.5-5.1) Chloride Level 102 mmol/L (98-107) Carbon Dioxide Level 27 mmol/L (21-32) Anion Gap 9 (6-14) Blood Urea Nitrogen 6 mg/dL (7-20) Creatinine 0.6 mg/dL (0.6-1.0) Estimated GFR (Cockcroft-Gault) 116.1 Glucose Level 92 mg/dL (70-99) Calcium Level 8.3 mg/dL (8.5-10.1) Procalcitonin 1.37 ng/mL (0.00-0.10) Microbiology 06/08/18 Blood Culture - Preliminary, Resulted NO GROWTH AFTER 2 DAYS 06/08/18 Urine Culture - Final, Complete 06/08/18 Urine Culture Result 1 (ABHISHEK) - Final, Complete Medications Current Medications Sodium Chloride 1,000 ml @ 1,000 mls/hr 1X ONCE IV Last administered on at 13:27; Start 06/08/18 at 11:30; Stop 06/08/18 at 12:29; Status DC Potassium Chloride (KCl Oral Soln) 40 meq 1X ONCE PO Last administered on 06/08at 13:38; Start 06/08/18 at 13:30; Stop 06/08/18 at 13:31; Status DC Ondansetron HCl (Zofran) 4 mg PRN Q8HRS PRN IV NAUSEA/VOMITING; Start 06/08/18 at 16:00; Stop 06/09/18 at 15:59; Status DC Acetaminophen (Tylenol) 650 mg PRN Q4HRS PRN PO FEVER; Start 06/08/18 at 16:00 ; Stop 06/09/18 at 15:59; Status DC Potassium Chloride/Sodium Chloride 1,000 ml @ 75 mls/hr 1X ONCE IV Last administered on 06/08/18at 16:38; Start 06/08/18 at 16:00; Stop 06/09/18 at 05:19 ; Status DC Ceftriaxone Sodium 50 ml @ 100 mls/hr 1X ONCE IV ; Start 06/08/18 at 16:15; Stop 06/08/18 at 16:44; Status UNV Ceftriaxone Sodium (Rocephin) 1 gm 1X ONCE IVP Last administered on 06/08/18at 16:37; Start 06/08/18 at 16:30; Stop 06/08/18 at 16:31; Status DC Magnesium Sulfate 50 ml @ 25 mls/hr 1X ONCE IV Last administered on 06/08/18at 17:03; Start 06/08/18 at 17:00; Stop 06/08/18 at 18:59; Status DC Ceftriaxone Sodium (Rocephin) 1 gm Q24H IVP Last administered on 06/10/18at 17: 19; Start 06/09/18 at 16:30 Sodium Chloride 1,000 ml @ 85 mls/hr [id number] IV Last administered on at 09:00; Start 06/08/18 at 16:30 Fentanyl Citrate (Fentanyl 2ml Vial) 25 mcg PRN Q3HRS PRN IV PAIN MODERATE; Start 06/08/18 at 16:30 Fentanyl Citrate (Fentanyl 2ml Vial) 50 mcg PRN Q3HRS PRN IV PAIN SEVERE Last administered on 06/10/18at 04:06; Start 06/08/18 at 16:30 Magnesium Sulfate/ Dextrose 100 ml @ 100 mls/hr 1X ONCE IV ; Start 06/08/18 at 16:30; Stop 06/08/18 at 17:29; Status UNV Lisinopril (Prinivil) 20 mg DAILYWSUP PO Last administered on 06/10/18 17:15; Start 06/09/18 at 17:00 Metoprolol Succinate (Toprol Xl) 100 mg DAILY PO Last administered on 09:22; Start 06/09/18 at 09:00 Nitroglycerin (Nitrostat) 0.4 mg PRN Q5MIN PRN SL CHEST PAIN; Start 06/08/18 at 17:15 Amlodipine Besylate (Norvasc) 2.5 mg BID PO Last administered on 06/11/18 09: 22; Start 06/08/18 at 21:00 Fluticasone Propionate (Flonase) 2 spray DAILY NS ; Start 06/09/18 at 09:00 Memantine (Namenda) 10 mg BID PO Last administered on 06/11/18 09:22; Start 06/08/18 at 21:00 Pantoprazole Sodium (Protonix) 40 mg DAILYAC PO Last administered on 06/11/18 09:21; Start 06/09/18 at 07:30 Non-Formulary Medication (Ranitidine Hcl ) 150 mg DAILY PO ; Start 06/09/18 at 09:00; Status UNV Sucralfate (Carafate) 1 gm TIDWMEALHC PO Last administered on 06/11/18at 12:07; Start 06/08/18 at 17:30 Enoxaparin Sodium (Lovenox 30mg Syringe) 30 mg Q24H SQ Last administered on 06/09/18at 20:52; Start 06/08/18 at 21:00; Stop 06/10/18 at 13:53; Status DC Aspirin (Children'S Aspirin) 81 mg DAILYWBKFT PO Last administered on at 09:21; Start 06/09/18 at 08:00 Lactobacillus Rhamnosus (Culturelle) 1 cap BID PO Last administered on 09:21; Start 06/09/18 at 09:00 Potassium Chloride (Klor-Con) 40 meq 1X ONCE PO ; Start 06/09/18 at 11:00; Stop 06/09/18 at 11:01; Status DC Potassium Chloride (Klor-Con) 40 meq 1X ONCE PO Last administered on at 11:16; Start 06/09/18 at 10:30; Stop 06/09/18 at 10:31; Status DC Potassium Chloride (KCl Oral Soln) 40 meq Q4H PO Last administered on at 12:57; Start 06/10/18 at 08:00; Stop 06/10/18 at 12:01; Status DC Magnesium Sulfate 50 ml @ 25 mls/hr 1X ONCE IV Last administered on 06/10/18at 13:23; Start 06/10/18 at 12:00; Stop 06/10/18 at 13:59; Status DC Enoxaparin Sodium (Lovenox 40mg Syringe) 40 mg Q24H SQ Last administered on 06/10/18at 20:57; Start 06/10/18 at 21:00 Potassium Chloride (Klor-Con) 40 meq 1X ONCE PO ; Start 06/11/18 at 09:15; Stop 06/11/18 at 09:16; Status Cancel Potassium Chloride (KCl Oral Soln) 40 meq 1X ONCE PEG Last administered on 06/11/18at 10:47; Start 06/11/18 at 10:30; Stop 06/11/18 at 10:31; Status DC Active Scripts Active Reported Ranitidine Hcl 150 Mg Capsule 150 Mg PO DAILY Amlodipine Besylate 2.5 Mg Tablet 2.5 Mg PO BID Namenda (Memantine Hcl) 10 Mg Tablet 1 Tab PO BID Flonase Allergy Relief (Fluticasone Propionate) 9.9 Ml [place].susp 2 Sprays NS DAILY NITROGLYCERIN SubLingual (Nitroglycerin) 0.4 Mg Tab.subl 0.4 Mg SL PRN Q5MIN PRN Omeprazole 40 Mg Capsule.dr 1 Cap PO DAILY Lisinopril 20 Mg Tablet 20 Mg PO DAILYWSUP Alprazolam 0.5 Mg Tablet 1 Tab PO BID Sucralfate 1 Gm/10 Ml Oral.susp 1 Gm PO TIDWMEALHC Toprol Xl (Metoprolol Succinate) 100 Mg Tab.er.24h 1 Tab PO DAILY Vitals/I & O Vital Sign - Last 24 Hours 06/10/18 06/10/18 06/10/18 06/10/18 15:00 17:15 19:15 20:19 Temp 98.2 98.2 98.2 98.2 Pulse 92 92 94 Resp 12 18 B/P (MAP) 145/77 (99) 145/77 185/96 (125) Pulse Ox 98 99 O2 Delivery Room Air Room Air Room Air 06/10/18 06/10/18 06/11/18 06/11/18 20:57 23:20 03:20 07:00 Temp 98.3 98.2 98.1 98.3 98.2 98.1 Pulse 94 91 89 90 Resp 18 17 18 B/P (MAP) 185/96 157/85 (109) 134/84 (101) 140/80 (100) Pulse Ox 98 98 96 O2 Delivery Room Air Room Air Room Air 06/11/18 06/11/18 06/11/18 06/11/18 08:00 09:22 09:22 10:46 Temp 98.3 98.3 Pulse 90 90 92 Resp 18 B/P (MAP) 140/80 140/80 119/75 (90) Pulse Ox 98 O2 Delivery Room Air Room Air Intake and Output 06/10/18 06/10/18 06/11/18 15:00 23:00 07:00 Intake Total 200 ml 100 ml Output Total 1200 ml 1500 ml Balance -1000 ml -1400 ml Nutrition Consultation Dietary Evaluation: Recommendations by RD: Increase Calorie Intake, Protein supplementation Comments: REC continue cardiac diet w/textures per [employer] REC Ensure Enlive (vanilla) TID Expected Outcomes/Goals: PO intake to meet >75% est needs Interpretation of weight loss: >7.5% in 3 months Malnutrition Findings: Food and Nutrition Intake (Mod: <75% est energy req 7days Weight Status: Appropriate WILLIAM CHRISTIAN III DO Jun 11, 2018 12:29
[2018-06-11] MEDS: fentaNYL PF VIAL 100 MCG/2 ML VIAL IV PRN (12:39)
[2018-06-11] MEDS ORDERED: ACET325T9 PO (13:54)
[2018-06-11] MEDS ORDERED: ACETAMINOPHEN 325 MG TABLET. PO PRN (14:15)
--- NOTE | 2018-06-11 14:37 | PDOC ---
PROGRESS NOTES Assessment Assessment Metabolic encephalopathy. Generalized weakness x 3 weeks. LE pain. Cellulitis, right foot, chronic. Leukocytosis. Fever. Hypokalemia, K 2.8. HTN. CAD s/p stent. Renal failure. Dementia features. No evidence of acute CVA this time. RECOMMENDATIONS/PLAN: ASA 81 mg daily. Treat medical diseases. Consulted ID for cellulitis. Discussed with her daughter, son and grand daughter in detail at bedside on 06/09. EEG on 06/09/18: Encephalopathy. HISTORY OF THE PRESENT ILLNESS: 82-y-old AA female patient with above medical diseases has been having symptoms of generalized weakness for about 3 weeks difficult for physical activities. Her family also noted her mental status changes not acting like herself. She complained pain in her bilateral LE and left hip area. PAST MEDICAL HISTORY Past Medical History Cardiovascular: CAD, HTN, Hyperlipidemia CENTRAL NERVOUS SYSTEM: CVA, Dementia GI: GERD Musculoskeletal: Osteoarthritis Neurology: dementia PAST SURGICAL HISTORY Total hip replacement (bilateral), Hysterectomy, Other (PCI/stent, lumbar fusion ) FAMILY HISTORY Noncontributory. SOCIAL HISTORY Smoke: No ALCOHOL: none Drugs: None Lives: with Family ALLERGY: NKDA MEDICATIONS: Refer to MAR REVIEW OF SYSTEMS: Constitutional: No cachexia. Head: No traumatic brain or head injury. Skin: No edema, or rash. Ear: No infection. Eyes: No vision loss or color blindness. Nose: No bleeding or purulent discharges. Hearing: Hearing decrease. Neck: No injury. Breast: No history of cancer, masses,or discharges. Cardiac: CAD, s/p stent. HTN. Pulmonary: No COPD. GI: No GI ulcer, GI bleeding. Urinary/genital: UTI. Endocrinologic: No cousin face, craniofacial dysmorphism, polydactyly. Skeletomuscular: Generalized weakness. Neurological: see HP. Psychiatric: Denies drug use/abuse. Otherwise, not [id number] review of systems. PHYSICAL EXAMINATION: General appearance is in subacute distress. HEENT: Normocephalic and nontraumatic. Eyes, nose, ears, and throat are unremarkable. Neck is supple. No lymphadenopathy. No crepitus. Cardiovascular: S1, S2, regular rate and rhythm. Pulmonary: Clear to auscultation bilaterally. Abdomen: Bowel sounds are positive. Abdomen is soft, nontender, and nondistended. Extremities: No rash, lesions. No restriction of range of motion NEUROLOGICAL EXAMINATION: Awake. Not oriented to time, place but knew person. PERRL. EOMI. CN: no focal findings. Muscle tone: within normal. Muscle strength: 4 UE and left Le, 3 right LE due to pain and swelling. DTR: 2 UE, 1 at knee. Plantar reflex: Neutral response bilaterally Gait: Not able to walk. Sensory exam: no abnormal findings. No cerebellar signs elicited. F-T-N test fine. Objective Objective Vital Signs Date Time Temp Pulse Resp B/P (MAP) Pulse Ox O2 Delivery O2 Flow Rate FiO2 06/11/18 13:25 98 Room Air 06/11/18 10:46 98.3 92 18 119/75 (90) 98.3 Intake and Output 06/11/18 07:00 Intake Total 300 ml Output Total 2700 ml Balance -2400 ml Intake Oral 300 ml Output Urine Total 2700 ml Vitals Signs Vitals VS - Last 72 Hours, by Label Date Time Temp Pulse Resp B/P (MAP) Pulse Ox O2 Delivery O2 Flow Rate FiO2 06/11/18 13:25 98 Room Air 06/11/18 12:39 98 Room Air 06/11/18 10:46 98.3 92 18 119/75 (90) 98 Room Air 98.3 06/11/18 09:22 90 140/80 06/11/18 09:22 90 140/80 06/11/18 08:00 Room Air 06/11/18 07:00 98.1 90 18 140/80 (100) 96 Room Air 98.1 06/11/18 03:20 98.2 89 17 134/84 (101) 98 Room Air 98.2 06/10/18 23:20 98.3 91 18 157/85 (109) 98 Room Air 98.3 06/10/18 20:57 94 185/96 06/10/18 20:19 Room Air 06/10/18 19:15 98.2 94 18 185/96 (125) 99 Room Air 98.2 06/10/18 17:15 92 145/77 06/10/18 15:00 98.2 92 12 145/77 (99) 98 Room Air 98.2 06/10/18 11:00 98.6 72 18 152/79 (103) 97 Room Air 98.6 06/10/18 09:09 85 134/82 06/10/18 09:07 134/82 06/10/18 08:00 Room Air 06/10/18 07:00 97.6 85 18 13482 (99) 96 Room Air 97.6 Laboratory Laboratory Laboratory Tests Test 06/11/18 06:43 White Blood Count 6.8 x10^3/uL (4.0-11.0) Red Blood Count 3.08 x10^6/uL (3.50-5.40) Hemoglobin 9.1 g/dL (12.0-15.5) Hematocrit 26.6 % (36.0-47.0) Mean Corpuscular Volume 86 fL (79-100) Mean Corpuscular Hemoglobin 29 pg (25-35) Mean Corpuscular Hemoglobin Concent 34 g/dL (31-37) Red Cell Distribution Width 14.9 % (11.5-14.5) Platelet Count 107 x10^3/uL (140-400) Neutrophils (%) (Auto) 76 % (31-73) Lymphocytes (%) (Auto) 16 % (24-48) Monocytes (%) (Auto) 7 % (0-9) Eosinophils (%) (Auto) 1 % (0-3) Basophils (%) (Auto) 0 % (0-3) Neutrophils # (Auto) 5.2 x10^3uL (1.8-7.7) Lymphocytes # (Auto) 1.0 x10^3/uL (1.0-4.8) Monocytes # (Auto) 0.5 x10^3/uL (0.0-1.1) Eosinophils # (Auto) 0.0 x10^3/uL (0.0-0.7) Basophils # (Auto) 0.0 x10^3/uL (0.0-0.2) Erythrocyte Sedimentation Rate 126 (0-25) Sodium Level 138 mmol/L (136-145) Potassium Level 3.1 mmol/L (3.5-5.1) Chloride Level 102 mmol/L (98-107) Carbon Dioxide Level 27 mmol/L (21-32) Anion Gap 9 (6-14) Blood Urea Nitrogen 6 mg/dL (7-20) Creatinine 0.6 mg/dL (0.6-1.0) Estimated GFR (Cockcroft-Gault) 116.1 Glucose Level 92 mg/dL (70-99) Calcium Level 8.3 mg/dL (8.5-10.1) Procalcitonin 1.37 ng/mL (0.00-0.10) Microbiology 06/08/18 Blood Culture - Preliminary, Resulted NO GROWTH AFTER 2 DAYS 06/08/18 Urine Culture - Final, Complete 06/08/18 Urine Culture Result 1 (ABHISHEK) - Final, Complete Medication Medications Current Medications Acetaminophen (Tylenol) 650 mg PRN Q6HRS PRN PO PAIN; Start 06/11/18 at 14:15 Enoxaparin Sodium (Lovenox 40mg Syringe) 40 mg Q24H SQ Last administered on 06/10/18at 20:57; Start 06/10/18 at 21:00 Potassium Chloride (KCl Oral Soln) 40 meq 1X ONCE PEG Last administered on 06/11/18at 10:47; Start 06/11/18 at 10:30; Stop 06/11/18 at 10:31; Status DC Potassium Chloride (Klor-Con) 40 meq 1X ONCE PO ; Start 06/11/18 at 09:15; Stop 06/11/18 at 09:16; Status Cancel Comment Review of Relevant I have reviewed the following items thor (where applicable) has been applied. ORA GRIFFITHS MD Jun 11, 2018 14:37
== END 2018-06-11 17:05 | DRG 871 ==
LOC: ER 10:56 → 2 NORTH 14:13
PROVIDERS: ADMIT Family Medicine; ATTEND Family Medicine
DX: A41.9 Sepsis, unspecified organism (principal); G93.41 Metabolic encephalopathy; N17.9 Acute kidney failure, unspecified; N39.0 Urinary tract infection, site not specified; E46 Unspecified protein-calorie malnutrition; L03.115 Cellulitis of right lower limb; E78.5 Hyperlipidemia, unspecified; E83.42 Hypomagnesemia; E87.6 Hypokalemia; F03.90 Unspecified dementia, unspecified severity, without behavioral disturbance, psychotic disturbance, mood disturbance, and anxiety; I12.9 Hypertensive chronic kidney disease with stage 1 through stage 4 chronic kidney disease, or unspecified chronic kidney disease; I25.10 Atherosclerotic heart disease of native coronary artery without angina pectoris; I48.91 Unspecified atrial fibrillation; I73.9 Peripheral vascular disease, unspecified; K21.9 Gastro-esophageal reflux disease without esophagitis; M19.90 Unspecified osteoarthritis, unspecified site; N18.9 Chronic kidney disease, unspecified; R32 Unspecified urinary incontinence; W18.39XA Other fall on same level, initial encounter; Y93.89 Activity, other specified; Y92.89 Other specified places as the place of occurrence of the external cause; Y99.8 Other external cause status; Z79.82 Long term (current) use of aspirin; Z82.49 Family history of ischemic heart disease and other diseases of the circulatory system; Z86.718 Personal history of other venous thrombosis and embolism; Z86.73 Personal history of transient ischemic attack (TIA), and cerebral infarction without residual deficits; Z90.710 Acquired absence of both cervix and uterus; Z95.5 Presence of coronary angioplasty implant and graft; Z96.643 Presence of artificial hip joint, bilateral; F32.9 Major depressive disorder, single episode, unspecified; F41.9 Anxiety disorder, unspecified; Z68.20 Body mass index [BMI] 20.0-20.9, adult
CPT/HCPCS: 36415; 70450; 70551; 71045; 73502; 73610; 73630; 80048; 80053; 80061; 80307; 81001; 82550; 82607; 82962; 83735; 83880; 84132; 84145; 84443; 84484; 84550; 85007; 85025; 85610; 85651; 87040; 87086; 93005; 93306; 93971; 95816; J0696; J1650; J3010; J3475; J7030; 92526; 92610; 97110; 97535; 99285-25